=== PATIENT | male | born 1965 | race Caucasian/White ===

== ENCOUNTER 2018-04-22 20:55 | Inpatient (IN) ==
--- NOTE | 2018-04-22 21:43 | Emergency Department Note ---
Disposition Clinical Impression: Depression Qualifiers: Depression Type: major depressive disorder Major depression recurrence: recurrent Active/Remission status: currently active Major depression episode severity: severe Psychotic features: without psychotic features Qualified Code(s ): F33.2 - Major depressive disorder, recurrent severe without psychotic features Disposition: Admitted As Inpatient Condition: Good Time of Disposition: 22:41 General Adult HPI - General Chief complaint: ED Psychiatric Symptoms Stated complaint: SI Time Seen by Provider: 04/22/18 21:14 Source: patient, EMS Limitations: no limitations - History of Present Illness HPI Narrative: This is a 52-year-old male who comes to emergency department reporting depression that has affected him for years, but has been much worse the last 2 months. He states he has been thinking about overdosing on sleeping pills. Pain Scale: 0 - Related Data Home Medications Medication Instructions Recorded Confirmed ALPRAZolam [Xanax 1 MG Tablet] 1 mg PO TID 01/31/16 01/31/16 Citalopram [CeleXA] 40 mg PO DAILY 01/31/16 01/31/16 Montelukast [Singulair] 10 mg PO HS 01/31/16 01/31/16 Nebivolol HCl [Bystolic] 10 mg PO 01/31/16 Omeprazole [PriLOSEC] 20 mg PO DAILY 01/31/16 01/31/16 SUMAtriptan Succinate [Imitrex] 100 mg PO DAILY PRN 01/31/16 01/31/16 Simvastatin [Zocor] 40 mg PO HS 01/31/16 01/31/16 Previous Rx's Medication Instructions Recorded Dicyclomine [Bentyl] 10 mg PO QID #14 capsule 04/14/16 Naproxen [Naprosyn] 500 mg PO BID #10 tablet 04/14/16 HYDROcodone/Acet 5/325 mg [[place] 1 tab PO Q6H PRN #6 tab 08/12/16 5-325 mg] Butalb/Acetaminophen/Caffeine 1 each PO Q6HR PRN #10 capsule 02/28/17 [Fioricet 50-300-40 mg Capsule] Loperamide HCl [Imodium A-D] 2 mg PO ONCE PRN #6 tablet 02/28/17 Allergies Allergy/AdvReac Type Severity Reaction Status Date / Time azithromycin Allergy Hives Verified 01/12/18 11:44 [From Zithromax Z-Efraín] Darvocet Allergy Rash Uncoded 08/02/17 23:13 All systems ED: reviewed and negative except as stated. Psychiatric: Reports: depression, suicidal thoughts Past Medical History - Past Medical History Medical history: Reports: asthma, diabetes, GERD, hyperlipidemia, hypertension, other Surgical history: Reports: non-contributory Psychiatric history: Reports: anxiety, depression - Social History Smoking Status: Former smoker Smokeless Tobacco Status: No Alcohol use: Reports: none Drug use: Reports: none Physical Exam - General Limitations: no limitations General appearance: alert, in no apparent distress - Head Head exam: atraumatic, normocephalic, normal inspection - Eye Eye exam: Present: normal appearance, PERRL, EOMI - Chest Chest inspection: Present: normal inspection, symmetric chest wall rise - Respiratory Respiratory exam: Present: normal lung sounds bilaterally - Cardiovascular Cardiovascular exam: Present: regular rate, normal rhythm, normal heart sounds - Abdominal Exam Abdominal exam: Present: soft, Non-Tender. Absent: tenderness, distention, guarding, rebound, rigidity - Extremities Exam Extremities exam: Present: normal inspection, full ROM. Absent: tenderness, pedal edema - Neurological Exam Neurological exam: Present: alert, oriented X3 - Psychiatric Psychiatric exam: Present: depressed, flat affect, suicidal ideation, other (He displays anhedonia, reports insomnia and frequent awakenings, poor appetite, and loss of interest and otherwise pleasurable activities.) - Skin Skin exam: Present: warm, dry, intact, normal color Course Vital Signs Temperature 98.5 F 04/22/18 21:01 Pulse Rate 48 04/22/18 21:01 Respiratory Rate 18 04/22/18 21:01 Blood Pressure 152/81 04/22/18 21:01 O2 Sat by Pulse Oximetry 96 04/22/18 21:01 Temperature 98.5 F 04/22/18 21:01 Pulse Rate 48 04/22/18 21:01 Respiratory Rate 18 04/22/18 21:01 Blood Pressure 152/81 04/22/18 21:01 O2 Sat by Pulse Oximetry 96 04/22/18 21:01 Oxygen Delivery Oxygen Delivery Room Air Medical Decision Making - MDM Narrative Medical decision making narrative: This is a 52-year-old male with major depression. He was admitted to psychiatry. - Lab Data Lab results reviewed: Yes I reviewed the patient's lab results. Lab results narrative: CBC shows leukocytosis at 14.6 BMP was unremarkable Salicylate was low Acetaminophen was low Alcohol was low Drug screen was negative Result diagrams: 04/22/18 21:13 04/22/18 21:13 Lab Results 04/22/18 04/22/18 04/22/18 Range/Units 21:13 21:13 21:29 WBC 14.6 H (4.3-11.1) K/mcL RBC 5.51 H (4.19-5.50) M/mcL Hgb 16.2 (12.9-16.9) g/dL Hct 49.3 (37.5-50.1) % MCV 89.5 (83.0-100.0) fL MCH 29.4 (28.0-33.3) pg MCHC 32.9 (31.6-35.5) g/dL RDW 11.9 (11.5-14.5) % Plt Count 264 (140-400) K/mcL MPV 11.1 (9.4-12.4) fL Immature Gran % 0.3 (0-4) % Seg Neutrophils % 61.3 % Lymphocytes % 28.9 % Monocytes % 6.8 % Eosinophils % 2.1 % Basophils % 0.6 % Neutrophils # 9.0 H (1.6-8.9) K/mcL Lymphocytes # 4.2 (0.6-4.6) K/mcL Monocytes # 1.0 (0.0-1.3) K/mcL Eosinophils # 0.3 (0.0-0.6) K/mcL Basophils # 0.1 (0.0-0.2) K/mcL Sodium 137 (136-145) mEq/L Potassium 3.5 (3.5-5.1) mEq/L Chloride 105 (98-107) mEq/L Carbon Dioxide 24 (23-29) mEq/L BUN 11 (6-20) mg/dL Creatinine 0.77 (0.70-1.30) mg/dL Est GFR ( Amer) > 60 (> 60) Est GFR (Non-Af Amer) > 60 (> 60) BUN/Creatinine Ratio 14 (6-26) Glucose 118 H (70-105) mg/dL Calculated Osmolality 284 (280-300) Calcium 9.3 (8.6-10.3) mg/dL Urine Color Yellow (Yellow) Urine Clarity Clear (Clear) Urine pH 6.0 (5.0-8.0) pH Units Ur Specific [place] > 1.030 H (1.010-1.025) Urine Protein Negative (Neg-Trace) mg/dL Urine Glucose (UA) >=1000 H (Normal) mg/dL Urine Ketones 15 H (Negative) mg/dL Urine Blood Negative (Negative) Urine Nitrite Negative (Negative) Urine Bilirubin Negative (Negative) Urine Urobilinogen Normal (Normal) mg/dL Ur Leukocyte Esterase Negative (Negative) Salicylates < 2.5 L (15.0-30.0) mg/dL Urine Opiates Screen (Bqatqt=261) ng/mL Acetaminophen < 10 L (10-20) mcg/mL Ur Barbiturates Screen (Bannna=009) ng/mL Ur Phencyclidine Scrn (Cutoff=25) ng/mL Ur Amphetamines Screen (Mtvvkr=7425) ng/mL U Benzodiazepines Scrn (Qruahq=670) ng/mL Urine Cocaine Screen (Cutoff= 300) ng/mL U Marijuana (THC) Screen (Cutoff = 50) ng/mL Ur Drug Screen Interp Ethyl Alcohol < 10 (Less than 10) mg/dL 04/22/18 Range/Units 21:29 WBC (4.3-11.1) K/mcL RBC (4.19-5.50) M/mcL Hgb (12.9-16.9) g/dL Hct (37.5-50.1) % MCV (83.0-100.0) fL MCH (28.0-33.3) pg MCHC (31.6-35.5) g/dL RDW (11.5-14.5) % Plt Count (140-400) K/mcL MPV (9.4-12.4) fL Immature Gran % (0-4) % Seg Neutrophils % % Lymphocytes % % Monocytes % % Eosinophils % % Basophils % % Neutrophils # (1.6-8.9) K/mcL Lymphocytes # (0.6-4.6) K/mcL Monocytes # (0.0-1.3) K/mcL Eosinophils # (0.0-0.6) K/mcL Basophils # (0.0-0.2) K/mcL Sodium (136-145) mEq/L Potassium (3.5-5.1) mEq/L Chloride (98-107) mEq/L Carbon Dioxide (23-29) mEq/L BUN (6-20) mg/dL Creatinine (0.70-1.30) mg/dL Est GFR ( Amer) (> 60) Est GFR (Non-Af Amer) (> 60) BUN/Creatinine Ratio (6-26) Glucose (70-105) mg/dL Calculated Osmolality (280-300) Calcium (8.6-10.3) mg/dL Urine Color (Yellow) Urine Clarity (Clear) Urine pH (5.0-8.0) pH Units Ur Specific [place] (1.010-1.025) Urine Protein (Neg-Trace) mg/dL Urine Glucose (UA) (Normal) mg/dL Urine Ketones (Negative) mg/dL Urine Blood (Negative) Urine Nitrite (Negative) Urine Bilirubin (Negative) Urine Urobilinogen (Normal) mg/dL Ur Leukocyte Esterase (Negative) Salicylates (15.0-30.0) mg/dL Urine Opiates Screen Negative (Vbfvbm=613) ng/mL Acetaminophen (10-20) mcg/mL Ur Barbiturates Screen Negative (Ojyten=254) ng/mL Ur Phencyclidine Scrn Negative (Cutoff=25) ng/mL Ur Amphetamines Screen Negative (Thezbl=7184) ng/mL U Benzodiazepines Scrn Negative (Vqarag=479) ng/mL Urine Cocaine Screen Negative (Cutoff= 300) ng/mL U Marijuana (THC) Screen Negative (Cutoff = 50) ng/mL Ur Drug Screen Interp See Below Ethyl Alcohol (Less than 10) mg/dL Critical Care Time Critical Care Time: No
[2018-04-22 21:54] LABS: Bilirubin,Urine Negative (Negative); Blood,Urine Negative (Negative); Clarity,Urine Clear (Clear); Color,Urine Yellow (Yellow); Glucose,Urine (UA) >=1000 mg/dL (Normal); Ketones,Urine 15 mg/dL (Negative); Leukocyte Esterase,Urine Negative (Negative); Nitrite,Urine Negative (Negative); Protein,Urine Negative (Neg-Trace); Specific Gravity,Urine > 1.030 (1.010-1.025); Urobilinogen,Urine Normal (Normal)
[2018-04-22 21:55] LABS: Basophils # 0.1 K/mcL (0.0-0.2); Basophils % 0.6 %; Eosinophils # 0.3 K/mcL (0.0-0.6); Eosinophils % 2.1 %; Hematocrit 49.3 % (37.5-50.1); Hemoglobin 16.2 g/dL (12.9-16.9); Immature Granulocytes % 0.3 % (0-4); Lymphocytes # 4.2 K/mcL (0.6-4.6); Lymphocytes % 28.9 %; Mean Corpuscular HGB Conc 32.9 g/dL (31.6-35.5); Mean Corpuscular Hemoglobin 29.4 pg (28.0-33.3); Mean Corpuscular Volume 89.5 fL (83.0-100.0); Mean Platelet Volume 11.1 fL (9.4-12.4); Monocytes % 6.8 %; Platelet Count 264 K/mcL (140-400); Red Blood Count 5.51 M/mcL (4.19-5.50); Red Cell Distribution Width 11.9 % (11.5-14.5); Segmented Neutrophils % 61.3 %
[2018-04-22 22:04] LABS: Acetaminophen < 10 mcg/mL (10-20); BUN/Creatinine Ratio 14 (6-26); Blood Urea Nitrogen 11 mg/dL (6-20); Calcium 9.3 mg/dL (8.6-10.3); Carbon Dioxide 24 mEq/L (23-29); Chloride 105 mEq/L (98-107); Ethanol < 10 mg/dL (Less than 10); Glucose 118 mg/dL (70-105); Osmolality,Calculated 284 (280-300); Potassium 3.5 mEq/L (3.5-5.1); Salicylate < 2.5 mg/dL (15.0-30.0); Sodium 137 mEq/L (136-145); eGFR For Non-African Americans > 60 (> 60)
[2018-04-22 22:05] LABS: Amphetamine Screen,Urine Negative ng/mL (Cutoff=1000); Barbiturate Screen,Urine Negative ng/mL (Cutoff=200); Benzodiazepines Screen,Urine Negative ng/mL (Cutoff=200); Cannabinoid Screen,Urine Negative ng/mL (Cutoff = 50); Cocaine Screen,Urine Negative ng/mL (Cutoff= 300); Opiate Screen,Urine Negative ng/mL (Cutoff=300); Phencyclidine Screen,Urine Negative ng/mL (Cutoff=25)
[2018-04-23] MEDS ORDERED: MOM Conc 10 ML UD.LIQ PO PRN (00:20)
[2018-04-23] MEDS ORDERED: Haloperidol Lactate 5 MG/ML VIAL IM PRN (00:20)
[2018-04-23] MEDS ORDERED: *HR* LORazepam 2 MG/ML VIAL IM PRN (00:20)
[2018-04-23] MEDS ORDERED: Mag Hydrox/Al Hydrox/Simeth 30 ML UDC PO PRN (00:20)
[2018-04-23] MEDS ORDERED: *HR* LORazepam 1 MG TABLET PO PRN (00:20)
[2018-04-23] MEDS: (Canagliflozin [Invokana] 300 MG) PO SCH ×2 (02:02→20:42)
[2018-04-23] MEDS: *HR* Metformin 500 MG TABLET PO SCH ×2 (08:15→16:30)
[2018-04-23] MEDS: Ibuprofen 400 MG TABLET PO PRN (08:17)
[2018-04-23] MEDS: Budesonide/Formoterol 160/4.5 1 PUFF INH IH SCH (10:15)
--- NOTE | 2018-04-23 11:35 | Psychiatry History & Physical ---
Date of Encounter: 04/23/18 Time of Encounter: 11:00 History of Present Illness Patient Stated Chief Complaint: Suicidal ideation Medicare Admission Attestation: For traditional Medicare patients the provided hospital inpatient services are reasonable and necessary and in the case of services not specified as inpatient -only under 42 CFR 419.22 (n), that they are appropriately provided as inpatient services in accordance 42 CFR 412.3. For Critical Access Hospital the patient may reasonably be expected to be discharged or transferred to a hospital within 96 hours after admission to the Critical Access Hospital. Admitted From: Emergency Dept History of Present Illness: Mr. Stevens is a 52 year old male admitted from the emergency department for depression and suicidal ideation. Patient went to see his counselor at [facility] suicidal thoughts and was referred to emergency department for medical clearance and admission. Patient has a long history of depression and anxiety also has a history of PTSD. He was hospitalized in 2010 after suicide attempt. He did not follow up or take medications after. Recently he was prescribed Zoloft by his PCP. He reports irregular sleep depressive feelings and lately suicidal ideation. 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 He has a medical history significant for diabetes and hypertension and his taken his medication and monitors his blood sugar. Patient did not elaborate on any triggers or precipitating factors that led to his visit to the hospital. UDS was negative. Past Med Surg Social Fam HX - Past Medical History Medical history: asthma, diabetes, GERD, hyperlipidemia, hypertension, other - Past Psychiatric History Psychiatric history: Reports: anxiety, depression, PTSD, prior suicide attempt, previous psychiatric hospitalization Past psychiatric history details: Hospitalization 2010 for suicide attempt - Past Surgical History Surgical History: non-contributory - Social History Smoking Status: Former smoker Smokeless Tobacco Status: No Alcohol use: none Drug use: none Medications & Allergies Albuterol Sulfate [Ventolin Hfa] 2 puff IH QID PRN 04/23/18 [History] Budesonide/Formoterol 160/4.5 [Symbicort 160/4.5] 2 puff IH DAILY 04/23/18 [ History] Canagliflozin [Invokana] 300 mg PO HS 04/23/18 [History] Lisinopril [Zestril] 10 mg PO DAILY 04/23/18 [History] Omeprazole [PriLOSEC] 40 mg PO DAILY 04/23/18 [History] Propranolol HCl 40 mg PO BID 04/23/18 [History] Sertraline [Zoloft] 50 mg PO HS 04/23/18 [History] Simvastatin 40 mg PO DAILY 04/23/18 [History] metFORMIN [Glucophage] 500 mg PO BIDWM 04/23/18 [History] 3 Allergy/AdvReac Type Severity Reaction Status Date / Time azithromycin Allergy Hives Verified 01/12/18 11:44 [From Zithromax Z-Efraín] Darvocet Allergy Rash Uncoded 08/02/17 23:13 Review of Systems Psychiatric: Reports: depression, anxiety, suicidal ideation Exam - HEENT Head exam IM: Present: atraumatic Eye exam IM: Present: EOMI, normal appearance, PERRL ENT exam IM: Present: normal exam - Neurological Neurological exam: Present: CN II-XII intact - Respiratory Respiratory exam IM: Present: CTAB - GI/Abdominal GI/Abdominal exam IM: Present: normal bowel sounds, soft. Absent: tenderness - Extremities Extremities exam IM: Present: full ROM - Skin Skin exam IM: Present: dry, warm - Constitutional Vitals: Temp Pulse Resp BP Pulse Ox 97.4 F L 61 16 112/72 96 04/23/18 09:00 04/23/18 09:00 04/23/18 09:00 04/23/18 09:00 04/22/18 21:01 General appearance: age & developmentally appropriate, well-groomed, well- nourished, average - Musculoskeletal Gait: normal Station: relaxed Strength & Tone: normal for patient - Psychiatric Patient Orientation: Yes Person, Yes Time, Yes Place Level of alertness: Alert Behavior: calm, cooperative Psychomotor activity: Normal Eye Contact: Maintains Eye Contact Mood Description: Euthymic/stable, Depressed, Anxious Affect description: congruent with mood, constricted Speech Volume: Normal Speech pattern: normal rate, normal rhythm, normal tone, fluent, spontaneous Language & Vocabulary: consistent with education Thought Process: Linear, Goal Oriented Thought Content: Yes Suicidal ideation, No Homicidal ideation, No Overt delusions Perceptual Disturbances: Yes Auditory hallucinations, No Visual hallucinations Attention Span Ability: Capable of Focused Attention Memory Description: Grossly Intact Patient Reliability: Reliable Historian Fund of knowledge: Yes abstraction ability, Yes average, Yes aware of current events Intelligence Estimate: Average Judgment: Limited Insight: Partial Results - Labs Labs: Laboratory Last Values WBC 14.6 K/mcL (4.3-11.1) H 04/22/18 21:13 RBC 5.51 M/mcL (4.19-5.50) H 04/22/18 21:13 Hgb 16.2 g/dL (12.9-16.9) 04/22/18 21:13 Hct 49.3 % (37.5-50.1) 04/22/18 21:13 MCV 89.5 fL (83.0-100.0) 04/22/18 21:13 MCH 29.4 pg (28.0-33.3) 04/22/18 21:13 MCHC 32.9 g/dL (31.6-35.5) 04/22/18 21:13 RDW 11.9 % (11.5-14.5) 04/22/18 21:13 Plt Count 264 K/mcL (140-400) 04/22/18 21:13 MPV 11.1 fL (9.4-12.4) 04/22/18 21:13 Immature Gran % 0.3 % (0-4) 04/22/18 21:13 Seg Neutrophils % 61.3 % 04/22/18 21:13 Lymphocytes % 28.9 % 04/22/18 21:13 Monocytes % 6.8 % 04/22/18 21:13 Eosinophils % 2.1 % 04/22/18 21:13 Basophils % 0.6 % 04/22/18 21:13 Neutrophils # 9.0 K/mcL (1.6-8.9) H 04/22/18 21:13 Lymphocytes # 4.2 K/mcL (0.6-4.6) 04/22/18 21:13 Monocytes # 1.0 K/mcL (0.0-1.3) 04/22/18 21:13 Eosinophils # 0.3 K/mcL (0.0-0.6) 04/22/18 21:13 Basophils # 0.1 K/mcL (0.0-0.2) 04/22/18 21:13 Sodium 137 mEq/L (136-145) 04/22/18 21:13 Potassium 3.5 mEq/L (3.5-5.1) 04/22/18 21:13 Chloride 105 mEq/L (98-107) 04/22/18 21:13 Carbon Dioxide 24 mEq/L (23-29) 04/22/18 21:13 BUN 11 mg/dL (6-20) 04/22/18 21:13 Creatinine 0.77 mg/dL (0.70-1.30) 04/22/18 21:13 Est GFR ( Amer) > 60 (> 60) 04/22/18 21:13 Est GFR (Non-Af Amer) > 60 (> 60) 04/22/18 21:13 BUN/Creatinine Ratio 14 (6-26) 04/22/18 21:13 Glucose 118 mg/dL (70-105) H 04/22/18 21:13 POC Glucose 105 mg/dL (70-99) H 04/23/18 08:07 Calculated Osmolality 284 (280-300) 04/22/18 21:13 Calcium 9.3 mg/dL (8.6-10.3) 04/22/18 21:13 Urine Color Yellow (Yellow) 04/22/18 21:29 Urine Clarity Clear (Clear) 04/22/18 21:29 Urine pH 6.0 pH Units (5.0-8.0) 04/22/18 21:29 Ur Specific [place] > 1.030 (1.010-1.025) H 04/22/18 21:29 Urine Protein Negative mg/dL (Neg-Trace) 04/22/18 21:29 Urine Glucose (UA) >=1000 mg/dL (Normal) H 04/22/18 21:29 Urine Ketones 15 mg/dL (Negative) H 04/22/18 21:29 Urine Blood Negative (Negative) 04/22/18 21:29 Urine Nitrite Negative (Negative) 04/22/18 21:29 Urine Bilirubin Negative (Negative) 04/22/18 21:29 Urine Urobilinogen Normal mg/dL (Normal) 04/22/18 21:29 Ur Leukocyte Esterase Negative (Negative) 04/22/18 21:29 Salicylates < 2.5 mg/dL (15.0-30.0) L 04/22/18 21:13 Urine Opiates Screen Negative ng/mL (Nqsrno=423) 04/22/18 21:29 Acetaminophen < 10 mcg/mL (10-20) L 04/22/18 21:13 Ur Barbiturates Screen Negative ng/mL (Applwg=347) 04/22/18 21:29 Ur Phencyclidine Scrn Negative ng/mL (Cutoff=25) 04/22/18 21:29 Ur Amphetamines Screen Negative ng/mL (Vbxqzn=6035) 04/22/18 21:29 U Benzodiazepines Scrn Negative ng/mL (Kxwxze=719) 04/22/18 21:29 Urine Cocaine Screen Negative ng/mL (Cutoff= 300) 04/22/18 21:29 U Marijuana (THC) Screen Negative ng/mL (Cutoff = 50) 04/22/18 21:29 Ur Drug Screen Interp See Below 04/22/18 21:29 Ethyl Alcohol < 10 mg/dL (Less than 10) 04/22/18 21:13 Assessment and Plan (1) Severe recurrent major depression without psychotic features Current visit: Yes Status: Acute Plan: Admit inpatient for safety and stabilization, Close observation, Suicide Precautions per unit protocol, Encourage participation in unit milieu, Group Therapy, Monitor sleep, Monitor appetite Risks, benefits, side effects, alternatives discussed w/pt: Yes Patient agreeable to treatment: Yes Estimated Length of Stay (Days): 5
[2018-04-23] MEDS: Nicotine 2 MG GUM BC PRN ×2 (14:26→17:10)
[2018-04-23] MEDS: hydrOXYzine pamoate 25 MG CAPSULE PO PRN (20:43)
[2018-04-23] MEDS: traZODone 50 MG TABLET PO PRN (20:43)
[2018-04-24] MEDS: *HR* Metformin 500 MG TABLET PO SCH ×2 (08:35→16:56)
[2018-04-24] MEDS: Budesonide/Formoterol 160/4.5 1 PUFF INH IH SCH (08:36)
[2018-04-24] MEDS: Nicotine 2 MG GUM BC PRN ×4 (08:37→21:17)
[2018-04-24] MEDS: Ibuprofen 400 MG TABLET PO PRN (09:30)
--- NOTE | 2018-04-24 13:59 | Psychiatry Progress Note ---
Date of Encounter: 04/24/18 Time of Encounter: 13:30 Subjective Interval history: Patient seen for follow-up. Case discussed with treatment team. Staff report patient is anxious, complain of racing thoughts, hearing voices, continued to feel suicidal and hopeless. He shared with me that he has been stressed out by family issues and he never received any therapy or counseling. He has low self- esteem, believe he is a failure and feels hopeless. Review of Systems Psychiatric: Reports: depression, anxiety, suicidal ideation, hopelessness, irritability, mood swings Results - Vital Signs Vital Signs: Temp Pulse Resp BP Pulse Ox 97.1 F L 61 18 103/71 96 04/24/18 09:00 04/24/18 09:00 04/24/18 09:00 04/24/18 09:00 04/22/18 21:01 - Labs Labs: Laboratory Results - last 24 hr 04/23/18 04/24/18 16:24 08:12 POC Glucose 139 H 119 H Assessment and Plan (1) Severe recurrent major depression without psychotic features Current visit: Yes Status: Acute Plan: Continue hospitalization, Close observation, Suicide Precautions per unit protocol, Encourage participation in unit milieu, Group Therapy, Monitor sleep, Monitor appetite Additional Plan: 1. Increase Zoloft to 100 mg daily 2. Abilify 10 mg daily Benefits and side effects were discussed was a patient is agreeable to start medication and will monitor. Risks, benefits, side effects, alternatives discussed w/pt: Yes Patient agreeable to treatment: Yes Consult Discharge Plan - Plan Referrals: NONE,PCP [Primary Care Provider] - Psychiatry Exam - Constitutional Vitals: Temp Pulse Resp BP Pulse Ox 97.1 F L 61 18 103/71 96 04/24/18 09:00 04/24/18 09:00 04/24/18 09:00 04/24/18 09:00 04/22/18 21:01 General appearance: age & developmentally appropriate, well-groomed, well- nourished, average - Musculoskeletal Gait: normal Station: relaxed Strength & Tone: normal for patient - Psychiatric Patient Orientation: Yes Person, Yes Time, Yes Place Level of alertness: Alert Behavior: calm, cooperative, anxious, distractible, dramatic Psychomotor activity: Normal Eye Contact: Maintains Eye Contact Mood Description: Euthymic/stable, Depressed, Irritable Affect description: congruent with mood, labile, dysphoric Speech Volume: Normal Speech pattern: normal rate, normal rhythm, normal tone, fluent, spontaneous Language & Vocabulary: consistent with education Thought Process: Linear, Goal Oriented, Racing Thought Content: Yes Suicidal ideation, No Homicidal ideation, No Overt delusions Perceptual Disturbances: Yes Auditory hallucinations, No Visual hallucinations Attention Span Ability: Capable of Focused Attention Memory Description: Grossly Intact Patient Reliability: Not Reliable Historian Fund of knowledge: Yes abstraction ability, Yes aware of current events Intelligence Estimate: Average Judgment: Limited Insight: Partial
[2018-04-24] MEDS: ARIPiprazole 10 MG TABLET PO SCH (15:23)
[2018-04-24] MEDS: traZODone 50 MG TABLET PO PRN (21:19)
[2018-04-24] MEDS: (Canagliflozin [Invokana] 300 MG) PO SCH (21:33)
[2018-04-25] MEDS: hydrOXYzine pamoate 25 MG CAPSULE PO PRN ×2 (01:45→20:24)
[2018-04-25] MEDS: *HR* Metformin 500 MG TABLET PO SCH ×2 (08:40→16:27)
[2018-04-25] MEDS: ARIPiprazole 10 MG TABLET PO SCH (08:40)
[2018-04-25] MEDS: Nicotine 2 MG GUM BC PRN ×4 (08:42→21:47)
[2018-04-25] MEDS: Budesonide/Formoterol 160/4.5 1 PUFF INH IH SCH (10:39)
[2018-04-25] MEDS: Ibuprofen 400 MG TABLET PO PRN (12:50)
--- NOTE | 2018-04-25 15:56 | Psychiatry Progress Note ---
Date of Encounter: 04/25/18 Time of Encounter: 14:20 Subjective Interval history: Patient seen for follow-up. Case discussed with treatment team. Patient reports feeling better less depressed, more expressive, more hopeful. Denies suicidal ideation or hopelessness. She is more interactive with staff and peers. Tolerated medication changes. Complain of some insomnia that responded to medication. Review of Systems Psychiatric: Reports: depression, anxiety, suicidal ideation, hopelessness, irritability, mood swings Results - Vital Signs Vital Signs: Temp Pulse Resp BP Pulse Ox 97.6 F 63 16 120/76 96 04/25/18 09:00 04/25/18 09:00 04/25/18 09:00 04/25/18 09:00 04/22/18 21:01 - Labs Labs: Laboratory Results - last 24 hr 04/24/18 04/25/18 16:55 08:02 POC Glucose 131 H 107 H Assessment and Plan (1) Severe recurrent major depression without psychotic features Current visit: Yes Status: Acute Plan: Continue hospitalization, Close observation, Suicide Precautions per unit protocol, Encourage participation in unit milieu, Group Therapy, Monitor sleep, Monitor appetite Risks, benefits, side effects, alternatives discussed w/pt: Yes Patient agreeable to treatment: Yes Consult Discharge Plan - Plan Referrals: Tig[facility] Sotelo [facility] [Outside] - 04/30/18 11:00 am (The above appointment is with Sammy Olmos for outpatient mental health counseling services. You will see him again on 05/06/2018 at 1:00pm. You will see Dr. Whitehead, psychiatrist, on 06/10/2018 at 10:00am.) Psychiatry Exam - Constitutional Vitals: Temp Pulse Resp BP Pulse Ox 97.6 F 63 16 120/76 96 04/25/18 09:00 04/25/18 09:00 04/25/18 09:00 04/25/18 09:00 04/22/18 21:01 General appearance: age & developmentally appropriate, well-groomed, well- nourished, average - Musculoskeletal Gait: normal Station: relaxed Strength & Tone: normal for patient - Psychiatric Patient Orientation: Yes Person, Yes Time, Yes Place Level of alertness: Alert Behavior: calm, cooperative Psychomotor activity: Normal Eye Contact: Maintains Eye Contact Mood Description: Euthymic/stable Affect description: congruent with mood, full range Speech Volume: Normal Speech pattern: normal rate, normal rhythm, normal tone, fluent, spontaneous Language & Vocabulary: consistent with education Thought Process: Linear, Goal Oriented Thought Content: No Suicidal ideation, No Homicidal ideation, No Overt delusions Perceptual Disturbances: No Auditory hallucinations, No Visual hallucinations Attention Span Ability: Capable of Focused Attention Memory Description: Grossly Intact Patient Reliability: Reliable Historian Fund of knowledge: Yes abstraction ability, Yes aware of current events Intelligence Estimate: Average Judgment: Limited Insight: Partial
[2018-04-25] MEDS: (Canagliflozin [Invokana] 300 MG) PO SCH (20:24)
[2018-04-25] MEDS: traZODone 50 MG TABLET PO PRN (20:24)
[2018-04-26] MEDS: Nicotine 2 MG GUM BC PRN ×5 (05:45→20:14)
[2018-04-26] MEDS: *HR* Metformin 500 MG TABLET PO SCH ×2 (08:56→17:19)
[2018-04-26] MEDS: ARIPiprazole 10 MG TABLET PO SCH (08:56)
[2018-04-26] MEDS: Budesonide/Formoterol 160/4.5 1 PUFF INH IH SCH (08:57)
--- NOTE | 2018-04-26 13:57 | Psychiatry Progress Note ---
Date of Encounter: 04/26/18 Time of Encounter: 13:54 Subjective Interval history: Patient seen for follow-up. Case discussed with treatment team. Patient reports feeling better more optimistic, he participated in groups and writing notes in his book. He is more interactive and denied hopelessness and denies suicidal ideation. He complained of insomnia and medication would be adjusted. Review of Systems Psychiatric: Reports: depression, anxiety, suicidal ideation, hopelessness, irritability, mood swings Results - Vital Signs Vital Signs: Temp Pulse Resp BP Pulse Ox 97.4 F L 61 16 107/59 96 04/26/18 08:41 04/26/18 08:41 04/26/18 08:41 04/26/18 08:41 04/22/18 21:01 - Labs Labs: Laboratory Results - last 24 hr 04/25/18 04/26/18 16:26 07:42 POC Glucose 166 H 105 H Assessment and Plan (1) Severe recurrent major depression without psychotic features Current visit: Yes Status: Acute Plan: Continue hospitalization, Close observation, Suicide Precautions per unit protocol, Encourage participation in unit milieu, Group Therapy, Monitor sleep, Monitor appetite Additional Plan: Increase trazodone to 100 mg at at bedtime Risks, benefits, side effects, alternatives discussed w/pt: Yes Patient agreeable to treatment: Yes Consult Discharge Plan - Plan Referrals: Tigist Wasserman [facility] [Outside] - 04/30/18 11:00 am (The above appointment is with Sammy Olmos for outpatient mental health counseling services. You will see him again on 05/06/2018 at 1:00pm. You will see Dr. Whitehead, psychiatrist, on 06/10/2018 at 10:00am.) Psychiatry Exam - Constitutional Vitals: Temp Pulse Resp BP Pulse Ox 97.4 F L 61 16 107/59 96 04/26/18 08:41 04/26/18 08:41 04/26/18 08:41 04/26/18 08:41 04/22/18 21:01 General appearance: age & developmentally appropriate, well-groomed, well- nourished, average - Musculoskeletal Gait: normal Station: relaxed Strength & Tone: normal for patient - Psychiatric Patient Orientation: Yes Person, Yes Time, Yes Place Level of alertness: Alert Behavior: calm, cooperative, distractible Psychomotor activity: Normal Eye Contact: Maintains Eye Contact Mood Description: Euthymic/stable, Anxious Affect description: congruent with mood, full range Speech Volume: Normal Speech pattern: normal rate, normal rhythm, normal tone, fluent, spontaneous Language & Vocabulary: consistent with education Thought Process: Linear, Goal Oriented Thought Content: No Suicidal ideation, No Homicidal ideation, No Overt delusions Perceptual Disturbances: No Auditory hallucinations, No Visual hallucinations Attention Span Ability: Capable of Focused Attention Memory Description: Grossly Intact Patient Reliability: Reliable Historian Fund of knowledge: Yes abstraction ability, Yes aware of current events Intelligence Estimate: Average Judgment: Limited Insight: Partial
[2018-04-26] MEDS: Ibuprofen 400 MG TABLET PO PRN (14:34)
[2018-04-26] MEDS: traZODone 50 MG TABLET PO PRN (20:11)
[2018-04-26] MEDS: hydrOXYzine pamoate 25 MG CAPSULE PO PRN (20:11)
[2018-04-26] MEDS: (Canagliflozin [Invokana] 300 MG) PO SCH (20:12)
--- NOTE | 2018-04-27 08:02 | Psychiatry Progress Note ---
Date of Encounter: 04/27/18 Time of Encounter: 07:58 Subjective Interval history: Client reports he is starting to feel better. Zoloft dose doubled so will not make any additional changes today. Claims he would have killed himself if his had not made him turn around at counseling office. Had been very negative toward but saying positive things about her today. Seems antisocial but also depressed. Claims he is working on coping skills and talking more. Uncomfortable in groups but trying to open up to staff. 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 Review of Systems Constitutional: Denies: fever, chills, weakness, weight change Eyes: Denies: eye pain, vision change Ears, Nose, Throat: Denies: ear pain, throat pain, dental pain, hearing loss, congestion Cardiovascular: Denies: chest pain, palpitations, dyspnea on exertion Respiratory: Denies: cough, dyspnea, wheezes Gastrointestinal: Denies: abdominal pain, nausea, vomiting, diarrhea, constipation Musculoskeletal: Denies: joint swelling, joint pain Neurological: Denies: headache, weakness, numbness, memory loss Psychiatric: Reports: depression, anxiety, suicidal ideation, hopelessness, irritability, mood swings Results - Vital Signs Vital Signs: Temp Pulse Resp BP Pulse Ox 98.6 F 69 16 94/64 96 04/26/18 21:00 04/26/18 21:00 04/26/18 21:00 04/26/18 21:00 04/22/18 21:01 - Labs Labs: Laboratory Results - last 24 hr 04/26/18 16:51 POC Glucose 167 H Assessment and Plan (1) Severe recurrent major depression without psychotic features Current visit: Yes Status: Acute Plan: Continue hospitalization, Close observation, Suicide Precautions per unit protocol, Encourage participation in unit milieu, Group Therapy, Monitor sleep, Monitor appetite Risks, benefits, side effects, alternatives discussed w/pt: Yes Patient agreeable to treatment: Yes Consult Discharge Plan - Plan Referrals: [facility] Wasserman [facility] [Outside] - 04/30/18 11:00 am (The above appointment is with Sammy Olmos for outpatient mental health counseling services. You will see him again on 05/06/2018 at 1:00pm. You will see Dr. Whitehead, psychiatrist, on 06/10/2018 at 10:00am.) Manisha Oneill MD [Partnered Physician] - 05/13/18 9:20 am (The above appointment is with Manisha Oneill for primary healthcare and medication management services.) Psychiatry Exam - Constitutional Vitals: Temp Pulse Resp BP Pulse Ox 98.6 F 69 16 94/64 96 04/26/18 21:00 04/26/18 21:00 04/26/18 21:00 04/26/18 21:00 04/22/18 21:01 General appearance: age & developmentally appropriate - Musculoskeletal Gait: normal Station: relaxed Strength & Tone: normal for patient - Psychiatric Patient Orientation: Yes Person, Yes Time, Yes Place Level of alertness: Alert Behavior: calm, cooperative Psychomotor activity: Normal Eye Contact: Maintains Eye Contact Mood Description: Depressed Affect description: congruent with mood, full range Speech Volume: Normal Speech pattern: normal rate, normal rhythm, normal tone, fluent, spontaneous Language & Vocabulary: consistent with education Thought Process: Linear Thought Content: Yes Suicidal ideation, No Homicidal ideation, No Overt delusions Perceptual Disturbances: No Auditory hallucinations, No Visual hallucinations Attention Span Ability: Capable of Focused Attention Memory Description: Grossly Intact Patient Reliability: Reliable Historian Fund of knowledge: Yes abstraction ability, Yes aware of current events Intelligence Estimate: Average Judgment: Limited Insight: Partial
[2018-04-27] MEDS: Nicotine 2 MG GUM BC PRN ×3 (08:32→19:59)
[2018-04-27] MEDS: *HR* Metformin 500 MG TABLET PO SCH ×2 (08:33→16:31)
[2018-04-27] MEDS: ARIPiprazole 10 MG TABLET PO SCH (08:33)
[2018-04-27] MEDS: Budesonide/Formoterol 160/4.5 1 PUFF INH IH SCH (11:07)
[2018-04-27] MEDS: traZODone 50 MG TABLET PO PRN (19:56)
[2018-04-27] MEDS: (Canagliflozin [Invokana] 300 MG) PO SCH (19:59)
[2018-04-27] MEDS: hydrOXYzine pamoate 25 MG CAPSULE PO PRN (23:55)
[2018-04-28] MEDS: Ibuprofen 400 MG TABLET PO PRN (03:11)
--- NOTE | 2018-04-28 09:54 | Psychiatry Progress Note ---
Date of Encounter: 04/28/18 Time of Encounter: 09:49 Subjective Interval history: Client reports he had a rough night last night. Could not sleep. Endorsed hallucinations. However, after processing sounds with nurse he realized he was just hearing normal noises from the parking lot. Took multiple prns but reports no sleep until almost 5am. Thinks Seroquel is what ultimately helped him to sleep. Will discontinue Trazodone for tonight and schedule Seroquel instead. Had a good day yesterday. Family visited last night and brought him food. Staff wondered if perhaps visitors brought something else in that impacted sleep but client adamantly denies this. Reports he is in the hospital to get better. "My would kill me." Asking for a family meeting. States his memory is bad and that knows many things about him that should probably be shared but that he forgets to bring up. Review of Systems Constitutional: Denies: fever, chills, weakness, weight change Eyes: Denies: eye pain, vision change Ears, Nose, Throat: Denies: ear pain, throat pain, dental pain, hearing loss, congestion Cardiovascular: Denies: chest pain, palpitations, dyspnea on exertion Respiratory: Denies: cough, dyspnea, wheezes Gastrointestinal: Denies: abdominal pain, nausea, vomiting, diarrhea, constipation Musculoskeletal: Denies: joint swelling, joint pain Neurological: Denies: headache, weakness, numbness, memory loss Psychiatric: Reports: depression, anxiety, suicidal ideation, hopelessness, irritability, mood swings Results - Vital Signs Vital Signs: Temp Pulse Resp BP Pulse Ox 97.3 F L 70 18 89/54 96 04/27/18 20:08 04/27/18 20:08 04/27/18 20:08 04/28/18 05:13 04/22/18 21:01 - Labs Labs: Laboratory Results - last 24 hr 04/27/18 16:32 POC Glucose 106 H Assessment and Plan (1) Severe recurrent major depression without psychotic features Current visit: Yes Status: Acute Plan: Continue hospitalization, Close observation, Suicide Precautions per unit protocol, Encourage participation in unit milieu, Group Therapy, Monitor sleep, Monitor appetite Risks, benefits, side effects, alternatives discussed w/pt: Yes Patient agreeable to treatment: Yes Consult Discharge Plan - Plan Referrals: [facility] [Outside] - 04/30/18 11:00 am (The above appointment is with Sammy Olmos for outpatient mental health counseling services. You will see him again on 05/06/2018 at 1:00pm. You will see Dr. Whitehead, psychiatrist, on 06/10/2018 at 10:00am.) Manisha Oneill MD [Partnered Physician] - 05/13/18 9:20 am (The above appointment is with Manisha Oneill for primary healthcare and medication management services.) Psychiatry Exam - Constitutional Vitals: Temp Pulse Resp BP Pulse Ox 97.3 F L 70 18 89/54 96 04/27/18 20:08 04/27/18 20:08 04/27/18 20:08 04/28/18 05:13 04/22/18 21:01 General appearance: age & developmentally appropriate - Musculoskeletal Gait: normal Station: relaxed Strength & Tone: normal for patient - Psychiatric Patient Orientation: Yes Person, Yes Time, Yes Place Level of alertness: Alert Behavior: calm, cooperative Psychomotor activity: Normal Eye Contact: Maintains Eye Contact Mood Description: Depressed Affect description: congruent with mood Speech Volume: Normal Speech pattern: normal rate, normal rhythm, normal tone, fluent, spontaneous Language & Vocabulary: consistent with education Thought Process: Linear Thought Content: No Suicidal ideation, No Homicidal ideation, No Overt delusions Perceptual Disturbances: No Auditory hallucinations, No Visual hallucinations Attention Span Ability: Capable of Focused Attention Memory Description: Grossly Intact Patient Reliability: Reliable Historian Fund of knowledge: Yes abstraction ability, Yes aware of current events Intelligence Estimate: Average Judgment: Fair Insight: Partial
[2018-04-28] MEDS: ARIPiprazole 10 MG TABLET PO SCH (10:19)
[2018-04-28] MEDS: *HR* Metformin 500 MG TABLET PO SCH ×2 (10:20→16:43)
[2018-04-28] MEDS: Budesonide/Formoterol 160/4.5 1 PUFF INH IH SCH (11:38)
[2018-04-28] MEDS: Nicotine 2 MG GUM BC PRN ×3 (14:04→20:04)
[2018-04-29] MEDS: (Canagliflozin [Invokana] 300 MG) PO SCH ×2 (00:07→20:33)
[2018-04-29] MEDS: Nicotine 2 MG GUM BC PRN ×5 (07:23→23:25)
[2018-04-29] MEDS: ARIPiprazole 10 MG TABLET PO SCH (08:34)
[2018-04-29] MEDS: *HR* Metformin 500 MG TABLET PO SCH ×2 (08:34→18:08)
[2018-04-29] MEDS: Budesonide/Formoterol 160/4.5 1 PUFF INH IH SCH (08:38)
[2018-04-29] MEDS: hydrOXYzine pamoate 25 MG CAPSULE PO PRN ×2 (10:44→20:29)
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
[2018-04-29] MEDS: Ibuprofen 400 MG TABLET PO PRN (19:08)
[2018-04-29] MEDS: Divalproex (12 HR) 250 MG TABLET PO SCH (20:29)
[2018-04-30] MEDS: Nicotine 2 MG GUM BC PRN ×4 (07:57→18:09)
[2018-04-30] MEDS: *HR* Metformin 500 MG TABLET PO SCH ×2 (08:45→16:35)
[2018-04-30] MEDS: ARIPiprazole 10 MG TABLET PO SCH (08:45)
[2018-04-30] MEDS: Budesonide/Formoterol 160/4.5 1 PUFF INH IH SCH (08:45)
[2018-04-30] MEDS: Divalproex (12 HR) 250 MG TABLET PO SCH (08:46)
--- NOTE | 2018-04-30 13:11 | Psychiatry Progress Note ---
Date of Encounter: 04/30/18 Time of Encounter: 12:37 Subjective Interval history: Patient seen today , case d/w treatment team , he states still not able to sleep and is feeling blah and restless , urge to move a lot, can be akhatasia from abilify . remains down , blah but not suicidal and no homicidal thought. denies psychosis today but had yesterday , today only like someone calling his name , will increase seroquel 300 mmg and dc abilify sec to akhatasia and depakote increased. Review of Systems Psychiatric: Reports: depression, anxiety, suicidal ideation, hopelessness, irritability, mood swings Results - Vital Signs Vital Signs: Temp Pulse Resp BP Pulse Ox 98.6 F 72 16 108/72 96 04/30/18 09:00 04/30/18 09:00 04/30/18 09:00 04/30/18 09:00 04/22/18 21:01 - Labs Labs: Laboratory Results - last 24 hr 04/29/18 04/30/18 23:27 07:41 POC Glucose 93 114 H Assessment and Plan (1) Suicidal ideations Current visit: Yes Status: Acute Risks, benefits, side effects, alternatives discussed w/pt: Yes Patient agreeable to treatment: Yes (2) Bipolar affective disorder, depressed, severe, with psychotic behavior Current visit: Yes Status: Acute Risks, benefits, side effects, alternatives discussed w/pt: Yes Patient agreeable to treatment: Yes Consult Discharge Plan - Plan Referrals: [facility] [Outside] - 04/30/18 11:00 am (The above appointment is with Sammy Olmos for outpatient mental health counseling services. You will see him again on 05/06/2018 at 1:00pm. You will see Dr. Whitehead, psychiatrist, on 06/10/2018 at 10:00am.) Manisha Oneill MD [Partnered Physician] - 05/13/18 9:20 am (The above appointment is with Manisha Oneill for primary healthcare and medication management services.) Psychiatry Exam - Constitutional Vitals: Temp Pulse Resp BP Pulse Ox 98.6 F 72 16 108/72 96 04/30/18 09:00 04/30/18 09:00 04/30/18 09:00 04/30/18 09:00 04/22/18 21:01 General appearance: age & developmentally appropriate - Musculoskeletal Gait: normal Station: other Strength & Tone: normal for patient - Psychiatric Patient Orientation: Yes Person, Yes Time, Yes Place Level of alertness: Alert Behavior: calm, cooperative Psychomotor activity: Normal Eye Contact: Maintains Eye Contact Mood Description: Other (blah) Affect description: congruent with mood Speech Volume: Normal Speech pattern: clear, coherent, slowed Language & Vocabulary: consistent with education Thought Process: Intact Thought Content: Yes Guilt Perceptual Disturbances: Yes Auditory hallucinations Attention Span Ability: Capable of Focused Attention Memory Description: Grossly Intact Patient Reliability: Reliable Historian Fund of knowledge: Yes average Intelligence Estimate: Average Judgment: Limited Insight: Partial
[2018-04-30] MEDS: Ibuprofen 400 MG TABLET PO PRN ×2 (13:24→20:18)
[2018-04-30] MEDS: (Canagliflozin [Invokana] 300 MG) PO SCH (20:17)
[2018-04-30] MEDS: Divalproex (12 HR) 500 MG TABLET PO SCH (20:20)
[2018-04-30] MEDS: hydrOXYzine pamoate 25 MG CAPSULE PO PRN (20:20)
[2018-05-01] MEDS: *HR* Metformin 500 MG TABLET PO SCH (08:10)
[2018-05-01] MEDS: Divalproex (12 HR) 500 MG TABLET PO SCH (08:12)
[2018-05-01] MEDS ORDERED: Nicotine 21 MG PATCH.TD24 TD SCH (09:00)
[2018-05-01 09:37] VITALS: BP 102/72
[2018-05-01] MEDS: Budesonide/Formoterol 160/4.5 1 PUFF INH IH SCH (10:18)
--- NOTE | 2018-05-01 11:48 | Discharge Summary ---
Date of Encounter: 05/01/18 Time of Encounter: 11:02 Diagnosis - Discharge Diagnosis (1) Suicidal ideations Status: Resolved Comments: patient denies any suicidal ideation at present and not in imenent danger to self/other. (2) Bipolar affective disorder, depressed, severe, with psychotic behavior Status: Acute Comments: Patient showed significant improvement with medications and unit milieu. Medications - Discharge Medications Prescriptions: Divalproex (12 HR) [Depakote (12 HR)] 500 mg PO BID #30 tablet. Nicotine Patch [Nicoderm] 21 mg TD DAILY #14 patch.[id number] Quetiapine Fumarate [Seroquel] 300 mg PO HS #14 tablet Sertraline [Zoloft] 50 mg PO DAILY #14 tablet Albuterol Sulfate [Ventolin Hfa] 2 puff IH QID PRN 04/23/18 [History] Budesonide/Formoterol 160/4.5 [Symbicort 160/4.5] 2 puff IH DAILY 04/23/18 [ History] Canagliflozin [Invokana] 300 mg PO HS 04/23/18 [History] Lisinopril [Zestril] 10 mg PO DAILY 04/23/18 [History] Omeprazole [PriLOSEC] 40 mg PO DAILY 04/23/18 [History] Propranolol HCl 40 mg PO BID 04/23/18 [History] Sertraline [Zoloft] 50 mg PO HS 04/23/18 [History] Simvastatin [Zocor] 40 mg PO HS 04/23/18 [History] metFORMIN [Glucophage] 500 mg PO BIDWM 04/23/18 [History] Divalproex (12 HR) [Depakote (12 HR)] 500 mg PO BID #30 tablet. 05/01/18 [Rx] Nicotine Patch [Nicoderm] 21 mg TD DAILY #14 patch.td24 05/01/18 [Rx] Omeprazole [PriLOSEC] 40 mg PO DAILY capsule. 05/01/18 [Rx] Quetiapine Fumarate [Seroquel] 300 mg PO HS #14 tablet 05/01/18 [Rx] Sertraline [Zoloft] 50 mg PO DAILY #14 tablet 05/01/18 [Rx] 3 Allergy/AdvReac Type Severity Reaction Status Date / Time azithromycin Allergy Hives Verified 01/12/18 11:44 [From Zithromax Z-Efraín] Darvocet Allergy Rash Uncoded 08/02/17 23:13 Provider Date of admission: 04/22/18 22:35 Primary care physician: PCP NONE Consults: 04/30/18 08:04 Consult to Hospitalist [CONS] Routine Consulting Provider: Hospitalist Radha Reason for Consult: Requesting Leodan Call Completed: No Psychiatry Exam - Constitutional Vitals: Temp Pulse Resp BP Pulse Ox 97.6 F 69 18 102/72 96 05/01/18 09:00 05/01/18 09:00 05/01/18 09:00 05/01/18 09:00 04/22/18 21:01 General appearance: age & developmentally appropriate, well-groomed, well- nourished - Musculoskeletal Gait: normal Station: relaxed Strength & Tone: normal for patient - Psychiatric Patient Orientation: Yes Person, Yes Time, Yes Place Level of alertness: Alert Behavior: calm, cooperative Psychomotor activity: Normal Eye Contact: Maintains Eye Contact Mood Description: Anxious Affect description: congruent with mood, full range Speech Volume: Normal Speech pattern: normal rate, normal rhythm, normal tone, fluent, spontaneous Language & Vocabulary: consistent with education Thought Process: Linear, Goal Oriented Thought Content: No Suicidal ideation, No Homicidal ideation, No Overt delusions Perceptual Disturbances: No Auditory hallucinations, No Visual hallucinations Attention Span Ability: Capable of Focused Attention Memory Description: Grossly Intact Patient Reliability: Reliable Historian Fund of knowledge: Yes abstraction ability, Yes aware of current events Intelligence Estimate: Average Judgment: Good Insight: Partial Hospital Course Hospital course: Mr. Stevens is a 52 year old male UPON ADMISSION Mr. Stevens is a 52 year old male admitted from the emergency department for depression and suicidal ideation. Patient went to see his counselor at [facility] suicidal thoughts and was referred to emergency department for medical clearance and admission. Patient has a long history of depression and anxiety also has a history of PTSD. He was hospitalized in 2010 after suicide attempt. He did not follow up or take medications after. Recently he was prescribed Zoloft by his PCP. He reports irregular sleep depressive feelings and lately suicidal ideation. 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 He has a medical history significant for diabetes and hypertension and his taken his medication and monitors his blood sugar. Patient did not elaborate on any triggers or precipitating factors that led to his visit to HOSPITAL COURSE : pATIENT showed improvement in his moods and psychosis , suicidal ideation , his diagnosis changed to bipolar as he gave h/o manic and derpessive episodes , he was started on depakote , seroquel increased to 300 mg and abilify dc as was causing akhatasia. he was given zoloft and dose decreased as felt edgy , seroquel 300 mg , depakote 1000 mg and zoloft 50 mg were tolerated by patient. AIMS0 depakote level given and still pending. [patient has support from family , will be discharged today as not suicidal/ homicidal, no psychosis. medically sugar control, has diabetes , hypercholestremia and HTN , he has PCP and will follow upon discharge. will be going for counselling and psych outpatient treatment. Time spent discussing smoking cessation with patient: 3 to 10 minutes Does patient wish to continue nicotine replacement upon disc: Yes (patient will continue nicotin patch) - Time Spent with Patient Total time spent providing and/or coordinating discharge services: Greater than 30 minutes Assessment and Plan - Patient/Caregiver Discharge Instructions Activity: resume usual activities as tolerated Diet: regular diet - Follow up Plan Follow up with: Tigist Sotelo [facility] [Outside] - 04/30/18 11:00 am (The above appointment is with Sammy Olmos for outpatient mental health counseling services. You will see him again on 05/06/2018 at 1:00pm. You will see Dr. Whitehead, psychiatrist, on 06/10/2018 at 10:00am.) Manisha Oneill MD [Partnered Physician] - 05/13/18 9:20 am (The above appointment is with Manisha Oneill for primary healthcare and medication management services.) Overall status at discharge: Stable Disposition: Home, Self-Care Quality - Multiple Antipsychotics Patient discharged on 2 or more antipsychotic medications: No Procedures - Procedures Procedures: Medication Management, Crisis Stabilization, Supportive Therapy, Group Therapy, Psychoeducational Therapy
[2018-05-01] MEDS: Ibuprofen 400 MG TABLET PO PRN (14:06)
== END 2018-05-01 14:30 | disposition home or self-care (01) | DRG 753 ==
LOC: EMEROOARM 20:55 → 1ANU 22:35 → SUATTDRO 22:35 → 1ANU 22:54
PROVIDERS: ADMIT Psychiatry & Neurology Psychiatry; ATTEND Psychiatry & Neurology Psychiatry

== ENCOUNTER 2019-01-01 22:32 | Inpatient (IN) ==
[2019-01-01] MEDS ORDERED: 0.9 % Sodium Chloride 1,000 ML IVC ONE (22:58)
--- NOTE | 2019-01-01 22:58 | Emergency Department Note ---
Disposition Clinical Impression: Diverticulitis, Syncope and collapse Disposition: Admitted As Inpatient Condition: Good Time of Disposition: 00:50 General Adult HPI - General Chief complaint: ED Weakness Stated complaint: weakness Time Seen by Provider: 01/01/19 22:44 Source: family Limitations: altered mental status, physical limitation Nursing Notes Reviewed: Yes Vital Signs Reviewed: Yes - History of Present Illness HPI Narrative: Patient history of diabetes, bipolar, recent colonoscopy 2 days ago presented for evaluation of generalized weakness with significant decreased strength the upper extremities, 4 out of 5. Patient with decreased the 5 out of 5 strength to the lower extremities. Patient had a difficult time being aroused while at home today. Patient is complaining of significant left-sided abdominal pain. Patient is complaining of a headache towards the describes his general as well a s going into his neck. Has required Botox injections in the past for headaches. Patient's initial glucose of 160 at bedside. EKG without any significant ST elevations or depressions. Patient will undergo further evaluation with blood work, CT imaging Pain Scale: 0 - Related Data Home Medications Medication Instructions Recorded Confirmed Albuterol Sulfate [Ventolin Hfa] 2 puff IH QID PRN 04/23/18 01/02/19 Budesonide/Formoterol 160/4.5 2 puff IH DAILY 04/23/18 01/02/19 [Symbicort 160/4.5] Lisinopril [Zestril] 10 mg PO DAILY 04/23/18 01/02/19 Propranolol HCl 40 mg PO BID 04/23/18 01/02/19 Simvastatin [Zocor] 40 mg PO HS 04/23/18 01/02/19 metFORMIN [Glucophage] 500 mg PO BIDWM 04/23/18 01/02/19 Depakote 1,000 mg PO HS 01/02/19 01/02/19 Divalproex (12 HR) [Depakote (12 500 mg PO DAILY 01/02/19 01/02/19 HR)] Quetiapine Fumarate [Seroquel] 200 mg PO HS 01/02/19 01/02/19 Sertraline [Zoloft] 100 mg PO DAILY 01/02/19 01/02/19 Previous Rx's Medication Instructions Recorded Omeprazole [PriLOSEC] 40 mg PO DAILY capsule. 05/01/18 Allergies Allergy/AdvReac Type Severity Reaction Status Date / Time azithromycin Allergy Hives Verified 11/07/18 19:43 [From Zithromax Z-Efraín] Darvocet Allergy Rash Uncoded 11/07/18 19:43 Review of Systems: CONSTITUTIONAL: Weakness and fatigue HEENT: Eyes: No visual changes. Ears, Nose, Throat: No hearing loss, difficulty talking or unable to swallow. SKIN: No rash or itching. CARDIOVASCULAR: syncope. Chest pain to the center of his chest intermittently for the last 2 weeks not worse with exertion and lasting approximately 3-5 minutes. RESPIRATORY: No shortness of breath, cough or sputum. GASTROINTESTINAL: No anorexia, nausea, vomiting or diarrhea. No abdominal pain or blood. GENITOURINARY: No burning on urination or hematuria. NEUROLOGICAL: Syncopal episode. No headache, dizziness, syncope, paralysis, ataxia, numbness or tingling in the extremities. No change in bowel or bladder control. MUSCULOSKELETAL: No muscle pain, back pain, joint pain or stiffness. Past Medical History - Past Medical History Medical history: Reports: asthma, diabetes, hyperlipidemia, hypertension, other Surgical history: Reports: angioplasty/stent, appendectomy, cholecystectomy, orthopedic, other Psychiatric history: Reports: anxiety, bipolar, depression, PTSD, prior suicide attempt, previous psychiatric hospitalization - Social History Smoking Status: Former smoker Smokeless Tobacco Status: Yes (chewing tobacco) Alcohol use: Reports: none Drug use: Reports: none Physical Exam General: Patient with generalized weakness and difficulty trying to get up in bed Head: Normocephalic Atraumatic Eyes: PERRL, EOMI ENT: Airway patent, no stridor Neck: supple, no meningismus Chest: Lungs clear to auscultation bilateral Cardiac: Regular rate and rhythm, no murmurs, rubs or gallops Abdomen: soft, moderate tenderness to the left lower quadrant with associated rebound tenderness, nondistended; no guarding Musculoskeletal: Generalized weakness throughout the arms and legs Skin: No rash, normal skin tone. Neuro: Alert and Oriented to person, place, and time; No obvious focal deficit. - General Limitations: altered mental status, physical limitation General appearance: lethargic Course - Reevaluation(s) Reevaluation #1: Patient overall has been feeling better while in the emergency department. Patient states that he feels generally weak. On further discussion the patient was s sitting in a chair this evening when he tried to get up and had syncopal episode falling between the chair and a side table. They had difficulty initially trying to arouse him. Patient is been continually weak since. Patient CT scan of the head and cervical spine are without abnormality. Patient was found to have a pulmonary nodule as well as diverticulitis. Given the patient's significant diverticulitis which they state will require surgery in the upcoming future as well as significant polyps that were removed patient will be treated with antibiotics. Overall the patient was attempted to be discharged. Patient was undergoing an ambulation trial with the patient was unable to ambulate secondary to lightheadedness as well as feeling like he was going to pass out with weakness in the legs and feeling as if they were going to give out. Patient has no acute EKG changes. Blood work is otherwise unremarkable. Patient will be admitted for further management. Vital Signs Temperature 98.4 F 01/01/19 22:36 Pulse Rate 68 01/01/19 22:36 Respiratory Rate 20 01/01/19 22:36 Blood Pressure 171/93 01/01/19 22:36 O2 Sat by Pulse Oximetry 97 01/01/19 22:36 Temperature 97.8 F 01/02/19 11:06 Pulse Rate 61 01/02/19 11:06 Respiratory Rate 20 01/02/19 11:06 Blood Pressure 97/60 01/02/19 11:06 O2 Sat by Pulse Oximetry 92 01/02/19 11:06 Oxygen Delivery Oxygen Delivery Room Air Medical Decision Making - Medical Records Medical records reviewed: Yes I reviewed the patient's medical records. - Lab Data Lab results reviewed: Yes I reviewed the patient's lab results. Result diagrams: 01/01/19 23:16 01/01/19 23:16 Lab Results 01/01/19 01/01/19 01/01/19 Range/Units 23:16 23:16 23:16 WBC 10.7 (4.3-11.1) K/mcL RBC 4.45 (4.19-5.50) M/mcL Hgb 13.4 (12.9-16.9) g/dL Hct 40.3 (37.5-50.1) % MCV 90.6 (83.0-100.0) fL MCH 30.1 (28.0-33.3) pg MCHC 33.3 (31.6-35.5) g/dL RDW 11.9 (11.5-14.5) % Plt Count 174 (140-400) K/mcL MPV 11.3 (9.4-12.4) fL Immature Gran % 0.6 (0-4) % Seg Neutrophils % 59.6 % Lymphocytes % 25.7 % Monocytes % 10.8 % Eosinophils % 2.7 % Basophils % 0.6 % Neutrophils # 6.4 (1.6-8.9) K/mcL Lymphocytes # 2.8 (0.6-4.6) K/mcL Monocytes # 1.2 (0.0-1.3) K/mcL Eosinophils # 0.3 (0.0-0.6) K/mcL Basophils # 0.1 (0.0-0.2) K/mcL Sodium 135 L (136-145) mEq/L Potassium 4.1 (3.5-5.1) mEq/L Chloride 104 (98-107) mEq/L Carbon Dioxide 22 L (23-29) mEq/L BUN 14 (6-20) mg/dL Creatinine 0.75 (0.70-1.30) mg/dL Est GFR ( Amer) > 60 (> 60) Est GFR (Non-Af Amer) > 60 (> 60) BUN/Creatinine Ratio 19 (6-26) Glucose 178 H (70-105) mg/dL Calculated Osmolality 285 (280-300) Lactic Acid 2.1 (0.5-2.2) mmol/L Calcium 9.1 (8.6-10.3) mg/dL Phosphorus 2.9 (2.7-4.5) mg/dL Total Bilirubin 0.3 (0.3-1.0) mg/dL AST 23 (13-39) Units/L ALT 29 (7-52) Units/L Alkaline Phosphatase 61 (34-104) Units/L Troponin I < 0.03 (< 0.04) ng/mL Serum Total Protein 7.1 (6.4-8.9) g/dL Albumin 4.0 (3.5-5.7) g/dL Globulin 3.1 (2.4-3.5) g/dL Albumin/Globulin Ratio 1.3 (1.1-2.2) Urine Color (Yellow) Urine Clarity (Clear) Urine pH (5.0-8.0) pH Units Ur Specific [place] (1.010-1.025) Urine Protein (Neg-Trace) mg/dL Urine Glucose (UA) (Normal) mg/dL Urine Ketones (Negative) mg/dL Urine Blood (Negative) Urine Nitrite (Negative) Urine Bilirubin (Negative) Urine Urobilinogen (Normal) mg/dL Ur Leukocyte Esterase (Negative) Ur Culture Indicated? (NO) 01/02/19 01/02/19 Range/Units 00:21 03:01 WBC (4.3-11.1) K/mcL RBC (4.19-5.50) M/mcL Hgb (12.9-16.9) g/dL Hct (37.5-50.1) % MCV (83.0-100.0) fL MCH (28.0-33.3) pg MCHC (31.6-35.5) g/dL RDW (11.5-14.5) % Plt Count (140-400) K/mcL MPV (9.4-12.4) fL Immature Gran % (0-4) % Seg Neutrophils % % Lymphocytes % % Monocytes % % Eosinophils % % Basophils % % Neutrophils # (1.6-8.9) K/mcL Lymphocytes # (0.6-4.6) K/mcL Monocytes # (0.0-1.3) K/mcL Eosinophils # (0.0-0.6) K/mcL Basophils # (0.0-0.2) K/mcL Sodium (136-145) mEq/L Potassium (3.5-5.1) mEq/L Chloride (98-107) mEq/L Carbon Dioxide (23-29) mEq/L BUN (6-20) mg/dL Creatinine (0.70-1.30) mg/dL Est GFR ( Amer) (> 60) Est GFR (Non-Af Amer) (> 60) BUN/Creatinine Ratio (6-26) Glucose (70-105) mg/dL Calculated Osmolality (280-300) Lactic Acid 1.4 (0.5-2.2) mmol/L Calcium (8.6-10.3) mg/dL Phosphorus (2.7-4.5) mg/dL Total Bilirubin (0.3-1.0) mg/dL AST (13-39) Units/L ALT (7-52) Units/L Alkaline Phosphatase (34-104) Units/L Troponin I (< 0.04) ng/mL Serum Total Protein (6.4-8.9) g/dL Albumin (3.5-5.7) g/dL Globulin (2.4-3.5) g/dL Albumin/Globulin Ratio (1.1-2.2) Urine Color Yellow (Yellow) Urine Clarity Clear (Clear) Urine pH 6.0 (5.0-8.0) pH Units Ur Specific [place] 1.024 (1.010-1.025) Urine Protein Trace (Neg-Trace) mg/dL Urine Glucose (UA) Normal (Normal) mg/dL Urine Ketones Trace H (Negative) mg/dL Urine Blood Negative (Negative) Urine Nitrite Negative (Negative) Urine Bilirubin Negative (Negative) Urine Urobilinogen Normal (Normal) mg/dL Ur Leukocyte Esterase Negative (Negative) Ur Culture Indicated? NO (NO) - Radiology Data Radiology results reviewed: Yes I reviewed the patient's radiology results. Chest X-Ray 01/01/19 22:58 IMPRESSION: No acute process. D/ / Arron Moran MD / Arron Moran MD Interpreting Provider: Arron Moran MD Head CT 01/02/19 22:58 IMPRESSION: Head CT: No acute intracranial abnormality. Cervical spine CT: No acute abnormality. D/ / Arron Moran MD / Arron Moran MD Interpreting Provider: Arron Moran MD Abdomen/Pelvis CT 01/02/19 22:59 IMPRESSION: Findings are suggestive of mild diverticulitis along the descending colon. Nonobstructing right nephrolithiasis. Left renal atrophy and scarring. New 8 mm noncalcified left lower lobe pulmonary nodule. Follow-up recommendations are as below. RECOMMENDATIONS: Fleischner Society guidelines for follow-up and management of incidentally detected pulmonary nodules: Single Solid Nodule: Nodule size less than 6 mm In a low-risk patient, no routine follow-up. In a high-risk patient, optional CT at 12 months. Nodule size equals 6-8 mm In a low-risk patient, CT at 6-12 months, then consider CT at 18-24 months. In a high-risk patient, CT at 6-12 months, then CT at 18-24 months. Nodule size greater than 8 mm In a low-risk patient, consider CT at 3 months, PET/CT, or tissue sampling. In a high-risk patient, consider CT at 3 months, PET/CT, or tissue sampling. Multiple Solid Nodules: Nodule size less than 6 mm In a low-risk patient, no routine follow-up. In a high-risk patient, optional CT at 12 months. Nodule size equals 6-8 mm In a low-risk patient, CT at 3-6 months, then consider CT at 18-24 months. In a high-risk patient, CT at 3-6 months, then CT at 18-24 months. Nodule size greater than 8 mm In a low-risk patient, CT at 3-6 months, then consider CT at 18-24 months. In a high-risk patient, CT at 3-6 months, then CT at 18-24 months. - Low risk patients include individuals with minimal or absent history of smoking and other known risk factors. - High risk patients include individuals with a history or smoking or known risk factors. Radiology 2017 http://pubs.rsna.org/doi/full/10.1148/radiol.[email or web address] D/ / Satish Leon MD / Satish Leon MD Interpreting Provider: Satish Leon MD Cervical Spine CT 01/02/19 23:00 IMPRESSION: Head CT: No acute intracranial abnormality. Cervical spine CT: No acute abnormality. D/ / Arron Moran MD / Arron Moran MD Interpreting Provider: Arron Moran MD - EKG Data EKG #1 EKG attestation: Yes I reviewed and interpreted this EKG. EKG results narrative: EKG shows sinus rhythm with a heart rate of 68 CT 152 QRS [address] elevations or depressions.
[2019-01-01 23:28] LABS: Basophils # 0.1 K/mcL (0.0-0.2); Basophils % 0.6 %; Eosinophils # 0.3 K/mcL (0.0-0.6); Eosinophils % 2.7 %; Hematocrit 40.3 % (37.5-50.1); Hemoglobin 13.4 g/dL (12.9-16.9); Immature Granulocytes % 0.6 % (0-4); Lymphocytes # 2.8 K/mcL (0.6-4.6); Lymphocytes % 25.7 %; Mean Corpuscular HGB Conc 33.3 g/dL (31.6-35.5); Mean Corpuscular Hemoglobin 30.1 pg (28.0-33.3); Mean Corpuscular Volume 90.6 fL (83.0-100.0); Mean Platelet Volume 11.3 fL (9.4-12.4); Monocytes # 1.2 K/mcL (0.0-1.3); Monocytes % 10.8 %; Neutrophils # 6.4 K/mcL (1.6-8.9); Platelet Count 174 K/mcL (140-400); Red Blood Count 4.45 M/mcL (4.19-5.50); Red Cell Distribution Width 11.9 % (11.5-14.5); Segmented Neutrophils % 59.6 %
[2019-01-01 23:50] LABS: Alanine Aminotransferase 29 Units/L (7-52); Albumin/Globulin Ratio 1.3 (1.1-2.2); Alkaline Phosphatase 61 Units/L (34-104); Aspartate Amino Transferase 23 Units/L (13-39); BUN/Creatinine Ratio 19 (6-26); Bilirubin,Total 0.3 mg/dL (0.3-1.0); Blood Urea Nitrogen 14 mg/dL (6-20); Calcium 9.1 mg/dL (8.6-10.3); Carbon Dioxide 22 mEq/L (23-29); Chloride 104 mEq/L (98-107); Globulin 3.1 g/dL (2.4-3.5); Glucose 178 mg/dL (70-105); Osmolality,Calculated 285 (280-300); Phosphorous 2.9 mg/dL (2.7-4.5); Potassium 4.1 mEq/L (3.5-5.1); Sodium 135 mEq/L (136-145); Total Protein 7.1 g/dL (6.4-8.9); Troponin I < 0.03 ng/mL (< 0.04); eGFR For Non-African Americans > 60 (> 60)
[2019-01-02 00:35] LABS: Bilirubin,Urine Negative (Negative); Blood,Urine Negative (Negative); Clarity,Urine Clear (Clear); Color,Urine Yellow (Yellow); Glucose,Urine (UA) Normal (Normal); Ketones,Urine Trace mg/dL (Negative); Leukocyte Esterase,Urine Negative (Negative); Nitrite,Urine Negative (Negative); Protein,Urine Trace mg/dL (Neg-Trace); Specific Gravity,Urine 1.024 (1.010-1.025); Urobilinogen,Urine Normal (Normal)
[2019-01-02] MEDS ORDERED: MetroNIDAZOLE 500 MG/100 ML 500 MG/100 ML BAG IVPB ONE (01:24)
[2019-01-02] MEDS ORDERED: *HR* FentaNYL (PF) 100 MCG/2 ML VIAL IVP ONE ×2 (01:24→05:43)
[2019-01-02] MEDS ORDERED: Ondansetron 4 MG/2 ML VIAL IVP ONE (01:25)
[2019-01-02] MEDS ORDERED: 0.9 % Sodium Chloride 1,000 ML IVC SCH ×3 (01:45→06:26)
[2019-01-02] MEDS ORDERED: Naloxone 0.4 MG/ML INJ IVP PRN (05:43)
[2019-01-02] MEDS: *HR* Heparin 5,000 UNIT/ML VIAL SQ SCH ×2 (06:36→17:30)
--- NOTE | 2019-01-02 06:40 | Internal Med History&Physical ---
Date of Encounter: 01/02/19 Time of Encounter: 05:20 Internal Medicine - H&P: HPI Chief complaint: abdominal pain Admitted From: Emergency Dept Plans for Post Hospital Care: Home History of present illness: Mr. Stevens is a 53 year old male who presents to the ER tonight with complaints of intense abdominal pain, nausea, vomiting, and subjective fever. He had colonoscopy with polypectomy performed roughly 36 hours prior to his ER presentation. Workup in ER revealed patient to have evidence of diverticulitis on CT imaging. He was subsequently admitted to hospitalist service for further workup and care. Upon my assessment of the patient, he and his confirmed above history. He states he has had recurrent bouts of diverticulitis of the sigmoid colon. He had a colonoscopy performed by Dr. Godfrey prior to a planned future sigmoid resection. However, after his colonoscopy 2 days ago, he had recurrence of d iverticulitis again. He denies any rectal bleeding, melena, or hematemesis. He denies any dysuria, hematuria, or flank pain. Of note, he was found to have evidence of a left lower lobe pulmonary nodule on his CT imaging. This will need follow-up with pulmonology. Past Med Surg Social Fam HX - Past Medical History Attestation: Yes The following information was validated with the patient. Source: patient, old records reviewed, obtained from family Medical history: asthma, diabetes, hyperlipidemia, hypertension, other Additional medical history: onychomtcosis, diverticulitis Psychiatric history: anxiety, bipolar, depression, PTSD, prior suicide attempt, previous psychiatric hospitalization - Past Surgical History Surgical History: angioplasty/stent, appendectomy, cholecystectomy, orthopedic, other Additional surgical history: left knee - Social History Smoking Status: Former smoker Smokeless Tobacco Status: Yes (chewing tobacco) Alcohol use: none Drug use: none Current living situation: Home, With Family Activity Level: Independent ambulation Recent Out of Country Travel Within the Last 8 Weeks: No - Family History Mother Hx Family GI Disorders: No Father Hx Family GI Disorders: No Internal Medicine - H&P: Meds Albuterol Sulfate [Ventolin Hfa] 2 puff IH QID PRN 04/23/18 [History] Budesonide/Formoterol 160/4.5 [Symbicort 160/4.5] 2 puff IH DAILY 04/23/18 [History] Lisinopril [Zestril] 10 mg PO DAILY 04/23/18 [History] Propranolol HCl 40 mg PO BID 04/23/18 [History] Simvastatin [Zocor] 40 mg PO HS 04/23/18 [History] metFORMIN [Glucophage] 500 mg PO BIDWM 04/23/18 [History] Omeprazole [PriLOSEC] 40 mg PO DAILY capsule. 05/01/18 [Rx] Depakote 1,000 mg PO HS 01/02/19 [History] Divalproex (12 HR) [Depakote (12 HR)] 500 mg PO DAILY 01/02/19 [History] Quetiapine Fumarate [Seroquel] 200 mg PO HS 01/02/19 [History] Sertraline [Zoloft] 100 mg PO DAILY 01/02/19 [History] Allergy/AdvReac Type Severity Reaction Status Date / Time azithromycin Allergy Hives Verified 11/07/18 19:43 [From Zithromax Z-Efraín] Darvocet Allergy Rash Uncoded 11/07/18 19:43 - Constitutional Constitutional: fever(s), no chills, no night sweats - EENT Eyes: no blurry vision, no change in vision Ears: no ear pain, no tinnitus Nose, mouth and throat: no nasal congestion, no sinus pressure, no sore throat - Cardiovascular Cardiovascular ROS IM: no chest pain, no dyspnea, no lightheadedness, no palpitations - Respiratory Respiratory: no cough, no hemoptysis, no chest congestion, no change in phlegm color - Gastrointestinal Gastrointestinal: abdominal pain, nausea, vomiting, no diarrhea, no hematemesis, no hematochezia, no melena - Genitourinary Genitourinary ROS male: no dysuria, no flank pain, no hematuria - Musculoskeletal Musculoskeletal ROS IM: no arthralgias, no back pain - Integumentary Integumentary IM: no rash, no jaundice - Neurological Neurological ROS: no disequilibrium, no dizziness, no focal weakness, no frequent falls, no headache(s) - Psychiatric Psychiatric: no anxiety, no depression - Endocrine Endocrine IM: no polydipsia, no polyuria - Allergic/Immunologic Allergic/Immunologic: GI upset with certain foods, no wheezing - Constitutional Vitals: Temp Pulse Resp BP Pulse Ox 97.7 F 73 16 113/73 96 01/02/19 02:49 01/02/19 02:49 01/02/19 02:49 01/02/19 02:49 01/02/19 02:49 General appearance: Present: cooperative, mild distress, A&O X 3, pleasant, answers questions appropriately Exam: see below - Head Head exam: Present: atraumatic, normal inspection - Eye Eye exam: Present: EOMI, PERRL. Absent: scleral icterus Pupils: Present: normal accommodation - ENT ENT exam: Present: mucous membranes dry, normal exam, normal oropharynx - Neck Neck exam general surgery: Present: full ROM, supple, trachea midline. Absent: tenderness, nuchal rigidity, thyromegaly - Respiratory Respiratory exam: Present: CTAB. Absent: chest wall tenderness, rales, rhonchi, wheezes - Cardiovascular Cardiovascular exam: Present: RRR, +S1, +S2. Absent: diastolic murmur, systolic murmur - GI/Abdominal GI/Abdominal exam: Present: guarding, hypoactive bowel sounds, soft, tenderness (moderate pain LLQ), no peritoneal signs. Absent: hepatomegaly, rebound, sp lenomegaly - Extremities Exam Extremities exam: Present: warm, radial pulses palpable and symmetrical. Absent: calf tenderness, joint swelling, pedal edema, tenderness - Back Exam Back exam: Absent: CVA tenderness (L), CVA tenderness (R) - Neurological Exam Neurological exam: Present: alert, oriented X3, no focal deficits, strengths equal and symetr throughout - Psychiatric Psychiatric exam: Present: normal affect, normal mood - Skin Skin exam: Present: dry, intact, warm Internal Med - H&P Results - Labs CBC & Chem 7: 01/01/19 23:16 01/01/19 23:16 Labs: Short CBC 01/01/19 Range/Units 23:16 WBC 10.7 (4.3-11.1) K/mcL Hgb 13.4 (12.9-16.9) g/dL Hct 40.3 (37.5-50.1) % Plt Count 174 (140-400) K/mcL Neutrophils # 6.4 (1.6-8.9) K/mcL BMP 01/01/19 23:16 Sodium 135 L Potassium 4.1 Chloride 104 Carbon Dioxide 22 L BUN 14 Creatinine 0.75 Glucose 178 H Calcium 9.1 Cardiac Enzymes 01/01/19 Range/Units 23:16 Troponin I < 0.03 (< 0.04) ng/mL Liver Function 01/01/19 Range/Units 23:16 Total Bilirubin 0.3 (0.3-1.0) mg/dL AST 23 (13-39) Units/L ALT 29 (7-52) Units/L Alkaline Phosphatase 61 (34-104) Units/L Albumin 4.0 (3.5-5.7) g/dL Urine 01/02/19 Range/Units 00:21 Urine Color Yellow (Yellow) Urine Clarity Clear (Clear) Urine pH 6.0 (5.0-8.0) pH Units Ur Specific [place] 1.024 (1.010-1.025) Urine Protein Trace (Neg-Trace) mg/dL Urine Glucose (UA) Normal (Normal) mg/dL - Impressions ITS Impressions Chest X-Ray 01/01/19 22:58 IMPRESSION: No acute process. D/ / Arron Moran MD / Arron Moran MD Interpreting Provider: Arron Moran MD Head CT 01/02/19 22:58 IMPRESSION: Head CT: No acute intracranial abnormality. Cervical spine CT: No acute abnormality. D/ / Arron Moran MD / Arron Moran MD Interpreting Provider: Arron Moran MD Abdomen/Pelvis CT 01/02/19 22:59 IMPRESSION: Findings are suggestive of mild diverticulitis along the descending colon. Nonobstructing right nephrolithiasis. Left renal atrophy and scarring. New 8 mm noncalcified left lower lobe pulmonary nodule. Follow-up recommendations are as below. RECOMMENDATIONS: Fleischner Society guidelines for follow-up and management of incidentally detected pulmonary nodules: Single Solid Nodule: Nodule size less than 6 mm In a low-risk patient, no routine follow-up. In a high-risk patient, optional CT at 12 months. Nodule size equals 6-8 mm In a low-risk patient, CT at 6-12 months, then consider CT at 18-24 months. In a high-risk patient, CT at 6-12 months, then CT at 18-24 months. Nodule size greater than 8 mm In a low-risk patient, consider CT at 3 months, PET/CT, or tissue sampling. In a high-risk patient, consider CT at 3 months, PET/CT, or tissue sampling. Multiple Solid Nodules: Nodule size less than 6 mm In a low-risk patient, no routine follow-up. In a high-risk patient, optional CT at 12 months. Nodule size equals 6-8 mm In a low-risk patient, CT at 3-6 months, then consider CT at 18-24 months. In a high-risk patient, CT at 3-6 months, then CT at 18-24 months. Nodule size greater than 8 mm In a low-risk patient, CT at 3-6 months, then consider CT at 18-24 months. In a high-risk patient, CT at 3-6 months, then CT at 18-24 months. - Low risk patients include individuals with minimal or absent history of smoking and other known risk factors. - High risk patients include individuals with a history or smoking or known risk factors. Radiology 2017 http://pubs.rsna.org/doi/full/10.1148/radiol.9421625401 D/ / Satish Leon MD / Satish Leon MD Interpreting Provider: Satish Leon MD Cervical Spine CT 01/02/19 23:00 IMPRESSION: Head CT: No acute intracranial abnormality. Cervical spine CT: No acute abnormality. D/ / Arron Moran MD / Arron Moran MD Interpreting Provider: Arron Moran MD - Diagnostic Studies CT scan - abdomen Status: image reviewed by me (diverticulitis; lung nodule noted) - Assessment and Plan (1) Diverticulitis Current Visit: Yes Status: Acute Assessment and plan: 1. Will keep npo. 2. IV Flagyl and Cipro. 3. Pain and nausea control. 4. Consult surgery (Dr. Godfrey) given recent colonoscopy and polypectomy. (2) Pulmonary nodule Current Visit: Yes Status: Acute Assessment and plan: 1. Will need outpatient follow up with pulmonary. (3) Bipolar disease, chronic Current Visit: Yes Status: Chronic Assessment and plan: 1. Continue home meds as appropriate. 2. No acute issues presently. 3. Outpatient follow up with psychiatry. (4) DVT prophylaxis Current Visit: Yes Status: Acute Assessment and plan: 1. Heparin SQ.
--- NOTE | 2019-01-02 07:48 | General Surgery Consult Note ---
Date of Encounter: 01/02/19 Time of Encounter: 07:45 Assessment and Plan (1) Diverticulitis Current Visit: Yes Status: Acute I have personally reviewed his CT results and if this is a diverticulitis episode it is very early in its course, this may also be related to recent polypectomy and tattoo injection of his colon during colonoscopy 2 days ago. (al most no inflammation on CT). continue antibiotics serial abdominal exams start clears will follow (2) HTN (hypertension) Current Visit: Yes Status: Chronic ok to continue home meds Qualifiers: Hypertension type: essential hypertension Qualified Code(s): I10 - Essential (primary) hypertension (3) Hyperlipidemia Current Visit: Yes Status: Chronic ok continue home simvastatin Qualifiers: Hyperlipidemia type: unspecified Qualified Code(s): E78.5 - Hyperlipidemia, unspecified (4) Depression Current Visit: No Status: Chronic continue home meds Qualifiers: Depression Type: major depressive disorder Major depression recurrence: recurrent Active/Remission status: currently active Major depression episode severity: severe Psychotic features: without psychotic features Qualified Code(s): F33.2 - Major depressive disorder, recurrent severe without psychotic features History of Present Illness Consult date: 01/02/19 Reason for consult: abdominal pain Requesting physician: Gurwinder Lopez History of present illness: Patient is well known to me. He has previously had 5 episodes of diverticulitis. He underwent colonoscopy 2 days ago (Sunday) and multiple polyps were removed and an area of descending colon was tattoo'd. He started having left sided abdominal pain after colonoscopy. He has been having nausea and vomiting as well. He had presented to ED due to these symptoms an CT abd pelvis done showing "Diverticulosis is present. Mild induration of fat is again seen at the junction of the descending colon and sigmoid colon. Increased induration of fat, mild in degree, along the pericolic gutter adjacent to the descending colon. " Past Med Surg Social Fam HX - Past Medical History Source: patient Medical history: asthma, diabetes, hyperlipidemia, hypertension, other Additional medical history: onychomtcosis, diverticulitis Psychiatric history: anxiety, bipolar, depression, PTSD, prior suicide attempt, previous psychiatric hospitalization - Past Surgical History Surgical History: angioplasty/stent, appendectomy, cholecystectomy, orthopedic, other Additional surgical history: left knee - Social History Smoking Status: Former smoker Smokeless Tobacco Status: Yes (chewing tobacco) Alcohol use: none Drug use: none - Family History Mother Hx Family GI Disorders: No Father Hx Family GI Disorders: No Medications and Allergies Albuterol Sulfate [Ventolin Hfa] 2 puff IH QID PRN 04/23/18 [History] Budesonide/Formoterol 160/4.5 [Symbicort 160/4.5] 2 puff IH DAILY 04/23/18 [History] Lisinopril [Zestril] 10 mg PO DAILY 04/23/18 [History] Propranolol HCl 40 mg PO BID 04/23/18 [History] Simvastatin [Zocor] 40 mg PO HS 04/23/18 [History] metFORMIN [Glucophage] 500 mg PO BIDWM 04/23/18 [History] Omeprazole [PriLOSEC] 40 mg PO DAILY capsule. 05/01/18 [Rx] Depakote 1,000 mg PO HS 01/02/19 [History] Divalproex (12 HR) [Depakote (12 HR)] 500 mg PO DAILY 01/02/19 [History] Quetiapine Fumarate [Seroquel] 200 mg PO HS 01/02/19 [History] Sertraline [Zoloft] 100 mg PO DAILY 01/02/19 [History] Allergy/AdvReac Type Severity Reaction Status Date / Time azithromycin Allergy Hives Verified 11/07/18 19:43 [From Zithromax Z-Efraín] Darvocet Allergy Rash Uncoded 11/07/18 19:43 Review of Systems All systems PM: reviewed and no additional remarkable complaints except as stated All systems PM: The remainder of the systems were reviewed and are negative General Surgery Exam Initial Vital Signs Temp Pulse Resp BP Pulse Ox 98.4 F 68 20 171/93 97 01/01/19 22:36 01/01/19 22:36 01/01/19 22:36 01/01/19 22:36 01/01/19 22:36 - General physical appearance well developed, well nourished, no distress - Eyes PERRL, normal ocular movement - ENT normal mucosa - Neck trachea midline - Respiratory normal expansion, clear to auscultation - Cardiovascular Cardiovascular exam: Present: RRR - Abdomen Abdomen general surgery: Present: bowel sounds present, soft, tender. Absent: distended, rebound, rigid Abdominal Tenderness: Present: LLQ - Integumentary Integumentary general surgery: Present: warm and dry, no abnormal pigmentation - Neurologic Present: CN 2-12 grossly intact - Musculoskeletal Present: normal posture - Psychiatric Psychiatric general surgery: Present: A&Ox3 Exam Initial Vital Signs Temp Pulse Resp BP Pulse Ox 98.4 F 68 20 171/93 97 01/01/19 22:36 01/01/19 22:36 01/01/19 22:36 01/01/19 22:36 01/01/19 22:36 Results - Labs 01/01/19 23:16 01/01/19 23:16 Abnormal lab results Sodium 135 mEq/L (136-145) L 01/01/19 23:16 Carbon Dioxide 22 mEq/L (23-29) L 01/01/19 23:16 Glucose 178 mg/dL (70-105) H 01/01/19 23:16 Trace mg/dL (Negative) H 01/02/19 00:21 Diabetes panel 01/01/19 Range/Units 23:16 Sodium 135 L (136-145) mEq/L Potassium 4.1 (3.5-5.1) mEq/L Chloride 104 (98-107) mEq/L Carbon Dioxide 22 L (23-29) mEq/L BUN 14 (6-20) mg/dL Creatinine 0.75 (0.70-1.30) mg/dL Glucose 178 H (70-105) mg/dL Calcium 9.1 (8.6-10.3) mg/dL AST 23 (13-39) Units/L ALT 29 (7-52) Units/L Alkaline Phosphatase 61 (34-104) Units/L Albumin 4.0 (3.5-5.7) g/dL Calcium panel 01/01/19 Range/Units 23:16 Calcium 9.1 (8.6-10.3) mg/dL Phosphorus 2.9 (2.7-4.5) mg/dL Albumin 4.0 (3.5-5.7) g/dL Pituitary panel 01/01/19 Range/Units 23:16 Sodium 135 L (136-145) mEq/L Potassium 4.1 (3.5-5.1) mEq/L Chloride 104 (98-107) mEq/L Carbon Dioxide 22 L (23-29) mEq/L BUN 14 (6-20) mg/dL Creatinine 0.75 (0.70-1.30) mg/dL Glucose 178 H (70-105) mg/dL Calcium 9.1 (8.6-10.3) mg/dL Adrenal panel 01/01/19 Range/Units 23:16 Sodium 135 L (136-145) mEq/L Potassium 4.1 (3.5-5.1) mEq/L Chloride 104 (98-107) mEq/L Carbon Dioxide 22 L (23-29) mEq/L BUN 14 (6-20) mg/dL Creatinine 0.75 (0.70-1.30) mg/dL Glucose 178 H (70-105) mg/dL Calcium 9.1 (8.6-10.3) mg/dL Total Bilirubin 0.3 (0.3-1.0) mg/dL AST 23 (13-39) Units/L ALT 29 (7-52) Units/L Alkaline Phosphatase 61 (34-104) Units/L Albumin 4.0 (3.5-5.7) g/dL All other labs normal. - Imaging CT scan - abdomen: report reviewed, image reviewed CT scan - pelvis: report reviewed, image reviewed Consult Discharge Plan - Plan Referrals: NONE,PCP [Primary Care Provider] -
[2019-01-02] MEDS: Divalproex (12 HR) 500 MG TABLET PO SCH ×2 (09:06→22:06)
[2019-01-02] MEDS: MetroNIDAZOLE 500 MG/100 ML 500 MG/100 ML BAG IVPB SCH ×2 (09:06→15:50)
[2019-01-02] MEDS: Acetaminophen 325 MG TABLET PO PRN ×2 (09:14→17:34)
--- NOTE | 2019-01-02 09:25 | Electrocardiograph Report ---
[place] [id number] Test Date: 2019-01-01 Pat Name: Baltazar Stevens Department: [id number] Room: 3A21 Gender: M Curer Acid Drum: : 1965 Requested By: Jorgito Zhang Order Number: [id number] Reading MD: Gio Mcleod Measurements Intervals [place] Rate: 68 P: 32 NE: 152 QRS: 24 QRSD: 88 T: 32 QT: 387 QTc: 412 Interpretive Statements Sinus rhythm Abnormal R-wave progression, early transition Electronically Signed On 01-02-2019 9:24:32 EDT by Gio Mcleod
[2019-01-02] MEDS: Budesonide/Formoterol 160/4.5 1 PUFF INH IH SCH (11:49)
[2019-01-02] MEDS ORDERED: *HR* Dextrose 50 % in Water (Syg) 50 ML SYRINGE IVP PRN (12:02)
[2019-01-02] MEDS ORDERED: D5% in Water 1,000 ML IVC PRN (12:02)
[2019-01-02] MEDS ORDERED: Dextrose Gel 15 GM/37.5 ML TUBE PO PRN ×2 (12:02)
--- NOTE | 2019-01-02 13:50 | Event Note ---
Date of Encounter: 01/02/19 Time of Encounter: 13:49 Patient is a 53y/o male admitted for diverticulitis. Reports improvement in pain and denies any nausea or vomiting at this time. Tolerating clear liquid diet at this time. Labs and vitals reviewed. continue current management. Surgery on board, evaluation appreciated.
[2019-01-02] MEDS: 0.9 % Sodium Chloride 1,000 ML IVC SCH (15:50)
[2019-01-02] MEDS: Insulin LISPRO 300 UNITS/3 ML VIAL SQ SCH ×2 (17:22→22:05)
[2019-01-02] MEDS: *HR* Promethazine 25 MG/ML VIAL IVP PRN (19:44)
[2019-01-03] MEDS: MetroNIDAZOLE 500 MG/100 ML 500 MG/100 ML BAG IVPB SCH ×3 (00:36→16:26)
[2019-01-03] MEDS: Acetaminophen 325 MG TABLET PO PRN ×3 (03:49→16:26)
[2019-01-03 04:38] LABS: Basophils # 0.1 K/mcL (0.0-0.2); Basophils % 0.8 %; Eosinophils # 0.3 K/mcL (0.0-0.6); Eosinophils % 4.9 %; Hematocrit 36.6 % (37.5-50.1); Hemoglobin 11.9 g/dL (12.9-16.9); Immature Granulocytes % 0.5 % (0-4); Lymphocytes # 2.6 K/mcL (0.6-4.6); Lymphocytes % 40.5 %; Mean Corpuscular HGB Conc 32.5 g/dL (31.6-35.5); Mean Corpuscular Volume 92.2 fL (83.0-100.0); Mean Platelet Volume 11.7 fL (9.4-12.4); Monocytes # 0.7 K/mcL (0.0-1.3); Monocytes % 10.7 %; Neutrophils # 2.8 K/mcL (1.6-8.9); Platelet Count 165 K/mcL (140-400); Red Blood Count 3.97 M/mcL (4.19-5.50); Red Cell Distribution Width 12.1 % (11.5-14.5); Segmented Neutrophils % 42.6 %
[2019-01-03 04:57] LABS: Alanine Aminotransferase 31 Units/L (7-52); Albumin 3.6 g/dL (3.5-5.7); Albumin/Globulin Ratio 1.4 (1.1-2.2); Alkaline Phosphatase 46 Units/L (34-104); Aspartate Amino Transferase 28 Units/L (13-39); BUN/Creatinine Ratio 14 (6-26); Bilirubin,Total 0.2 mg/dL (0.3-1.0); Blood Urea Nitrogen 10 mg/dL (6-20); Calcium 8.7 mg/dL (8.6-10.3); Carbon Dioxide 24 mEq/L (23-29); Chloride 107 mEq/L (98-107); Globulin 2.5 g/dL (2.4-3.5); Glucose 119 mg/dL (70-105); Magnesium 1.7 mg/dL (1.6-2.6); Osmolality,Calculated 292 (280-300); Sodium 141 mEq/L (136-145); Total Protein 6.1 g/dL (6.4-8.9); eGFR For Non-African Americans > 60 (> 60)
[2019-01-03 05:08] LABS: Prothrombin Time 11.1 Seconds (9.4-12.1)
[2019-01-03 05:11] LABS: Activated Partial Thrombo Time 32.4 Seconds (26.0-36.0)
[2019-01-03] MEDS: 0.9 % Sodium Chloride 1,000 ML IVC SCH ×3 (05:15→20:44)
[2019-01-03] MEDS: *HR* Heparin 5,000 UNIT/ML VIAL SQ SCH ×2 (05:15→18:13)
[2019-01-03] MEDS: Budesonide/Formoterol 160/4.5 1 PUFF INH IH SCH (07:29)
--- NOTE | 2019-01-03 07:51 | General Surgery Progress Note ---
Date of Encounter: 01/03/19 Time of Encounter: 07:30 - Assessment and Plan (1) Diverticulitis Current Visit: Yes Status: Acute As noted per attending surgeon note, if this is diverticulitis it is early in the course. Patient exam remains more tender than expected by CT findings. His abdominal exam is with involuntary guarding and right and left lower quadrant pain with mild palpation. Would recommend patient remain in the hospital for IV antibiotics. Consider repeat CAT scan on Sunday pending clinical course. Nursing notes reviewed: RN note on 01/02/2019 reports hospitalist advanced diet to full liquids. Surgical order remained for clear liquid diet. Patient reports someone brought him goldfish crackers last night despite clear liquid diet. Patient advised to refrain from eating anything that is not on his hospital diet as this could lead to increased pain or at worst perforation and the sequela that would follow. Patient verbalizes understanding and adherence. Plan: clear liquid diet continue IV antibiotics continue hospital cares per primary team consider repeat CT as above pending clinical course ambulate TID out of bed to chair TID Hood hose incentive spirometry trend labs (2) Syncope and collapse Current Visit: Yes Status: Acute Noted negative head and cervical spine CT's. Management per primary team (3) Bipolar disease, chronic Current Visit: Yes Status: Chronic Management per primary team. Patient is taking his home meds Subjective Patient reports: still having pain, tolerating liquids well, voiding w/o dif ficulty, no flatus, no bowel movement, afebrile Narrative: pt reports LLQ pain that is similar "maybe some better" than admission. He denies nausea or increased pain with liquids. He reports he was brought gold fish crackers last pm and this did not "seem" to cause worse pain. Objective Vital Signs - Last 8 Hours Temp Pulse Resp BP Pulse Ox 01/03/19 07:47 97.7 F 58 16 112/72 93 01/03/19 07:32 17 96 01/03/19 03:48 98.2 F 62 16 117/57 91 01/03/19 00:01 97.9 F 69 14 117/68 93 Intake and Output 01/02/19 01/02/19 01/03/19 15:59 23:59 07:59 Intake Total 340 / 2260 300 / 2260 0 / 0 Output Total 325 / 1225 900 / 1225 400 / 400 Balance 15 / 1035 -600 / 1035 -400 / -400 Intake: IV Fluids 100 2020 300 / 2020 Cipro Premix 400 MG/200 ML 400 200 / 200 mg In 200 ml @ 200 mls/hr IVPB Q12HR [facility] Rx#:[id number] Flagyl Premix 500 MG/100 ML 500 100 / 200 100 / 200 mg In 100 ml @ 100 mls/hr IVPB Q8HR [facility] Rx#:[id number] Oral 240 / 240 0 / 0 Output: Urine 325 / 1225 900 / 1225 400 / 400 Other: Meal clears Blood Glucose* 114 95 116 - General physical appearance well developed, well nourished, no distress, moderate pain (with light palpation) - Eyes normal ocular movement - ENT atraumatic, normocephalic, Other (ear gauges noted) - Neck Neck exam: trachea midline - Respiratory normal expansion, normal respiratory effort, clear to auscultation - Cardiovascular Cardiovascular exam: Present: RRR, distant heart sounds - Abdomen Abdomen: Present: bowel sounds present, soft, tender, guarding Abdominal Tenderness: RLQ, LLQ Hernia: none - Integumentary no rash, other (Tattoo arm sleeves noted) - Neurologic normal sensation - Musculoskeletal normal posture - Psychiatric oriented to time, oriented to person, oriented to place, speech is normal, memory intact - Labs 01/03/19 03:42 01/03/19 03:42 Diabetes panel 01/03/19 Range/Units 03:42 Sodium 141 (136-145) mEq/L Potassium 4.0 (3.5-5.1) mEq/L Chloride 107 (98-107) mEq/L Carbon Dioxide 24 (23-29) mEq/L BUN 10 (6-20) mg/dL Creatinine 0.74 (0.70-1.30) mg/dL Glucose 119 H (70-105) mg/dL Calcium 8.7 (8.6-10.3) mg/dL AST 28 (13-39) Units/L ALT 31 (7-52) Units/L Alkaline Phosphatase 46 (34-104) Units/L Albumin 3.6 (3.5-5.7) g/dL Calcium panel 01/03/19 Range/Units 03:42 Calcium 8.7 (8.6-10.3) mg/dL Albumin 3.6 (3.5-5.7) g/dL Pituitary panel 01/03/19 Range/Units 03:42 Sodium 141 (136-145) mEq/L Potassium 4.0 (3.5-5.1) mEq/L Chloride 107 (98-107) mEq/L Carbon Dioxide 24 (23-29) mEq/L BUN 10 (6-20) mg/dL Creatinine 0.74 (0.70-1.30) mg/dL Glucose 119 H (70-105) mg/dL Calcium 8.7 (8.6-10.3) mg/dL Adrenal panel 01/03/19 Range/Units 03:42 Sodium 141 (136-145) mEq/L Potassium 4.0 (3.5-5.1) mEq/L Chloride 107 (98-107) mEq/L Carbon Dioxide 24 (23-29) mEq/L BUN 10 (6-20) mg/dL Creatinine 0.74 (0.70-1.30) mg/dL Glucose 119 H (70-105) mg/dL Calcium 8.7 (8.6-10.3) mg/dL Total Bilirubin 0.2 L (0.3-1.0) mg/dL AST 28 (13-39) Units/L ALT 31 (7-52) Units/L Alkaline Phosphatase 46 (34-104) Units/L Albumin 3.6 (3.5-5.7) g/dL Consult Discharge Plan - Plan Referrals: NONE,PCP [Primary Care Provider] -
[2019-01-03] MEDS: Divalproex (12 HR) 500 MG TABLET PO SCH ×2 (08:38→20:40)
[2019-01-03] MEDS: Insulin LISPRO 300 UNITS/3 ML VIAL SQ SCH ×4 (08:39→20:41)
--- NOTE | 2019-01-03 13:51 | Internal Med Progress Note ---
Hospitalist Progress Note - Encounter Date of Encounter: 01/03/19 Time of Encounter: 13:48 - Subjective Interval History: Patient seen and examined at bedside. Patient resting in bed and reports improvement his abdominal pain compared to previous day. States he still feels nauseous but no vomiting reported. States he is tolerating clear liquid diet without any discomfort. No headache, dizziness, lightheadedness reported. Pt encouraged to get out of bed to chair with assistance and increase activity as tolerated. No overnight events reported Ten point ROS is negative except as listed above - Exam Vitals: Temp Pulse Resp BP Pulse Ox 97.7 F 58 16 114/76 93 01/03/19 12:16 01/03/19 12:16 01/03/19 12:16 01/03/19 12:16 01/03/19 12:16 Exam: General: No acute distress, AAO x 3, obese HEENT: EOMI, PERRLA, NC/AT, no scleral icterus Respiratory: Clear to auscultate bilaterally, no wheezing, no rales Cardiovascular: Regular, Rate, Rhythm, No murmurs GI: Soft, Non tender, non distended, normal bowel sounds Ext: No edema, no tenderness, positive pulses Neuro: AAO x 3, no focal deficits, CN II-XII grossly intact Rest of the clinical exam is noncontributory - Assessment and Plan (1) Diverticulitis Current Visit: Yes Status: Acute Assessment and Plan: Surgery evaluation appreciated will continue IV abx advance diet as per surgery anti-emetic support as needed (2) Pulmonary nodule Current Visit: Yes Status: Acute Assessment and Plan: incidental finding on CT abd/pelvis nodules reported on lower chest imaging clinically asymptomatic outpatient follow up with pulmonology on discharge (3) Bipolar disease, chronic Current Visit: Yes Status: Chronic Assessment and Plan: Continue home meds (4) DVT prophylaxis Current Visit: Yes Status: Acute Assessment and Plan: Heparin SQ - Time Spent with Patient Total time spent is greater than 50% in coordination of care (as documented) at patient's floor/unit and/or counseling patient: 25 - 35 minutes Plan of Care Discussed with: patient (patient/RN/case management) Internal Medicine: Result - Labs CBC & Chem 7: 01/03/19 03:42 01/03/19 03:42 Labs: Short CBC 01/03/19 Range/Units 03:42 WBC 6.5 (4.3-11.1) K/mcL Hgb 11.9 L D (12.9-16.9) g/dL Hct 36.6 L (37.5-50.1) % Plt Count 165 (140-400) K/mcL Neutrophils # 2.8 (1.6-8.9) K/mcL BMP 01/03/19 03:42 Sodium 141 Potassium 4.0 Chloride 107 Carbon Dioxide 24 BUN 10 Creatinine 0.74 Glucose 119 H Calcium 8.7 Liver Function 01/03/19 Range/Units 03:42 Total Bilirubin 0.2 L (0.3-1.0) mg/dL AST 28 (13-39) Units/L ALT 31 (7-52) Units/L Alkaline Phosphatase 46 (34-104) Units/L Albumin 3.6 (3.5-5.7) g/dL - ABG Interpretation ABG results: PT/INR, D-dimer PT 11.1 Seconds (9.4-12.1) 01/03/19 03:42 Consult Discharge Plan - Plan Referrals: NONE,PCP [Primary Care Provider] -
[2019-01-04] MEDS: MetroNIDAZOLE 500 MG/100 ML 500 MG/100 ML BAG IVPB SCH ×3 (00:01→15:40)
[2019-01-04] MEDS: Acetaminophen 325 MG TABLET PO PRN ×3 (03:40→21:59)
[2019-01-04] MEDS: *HR* Heparin 5,000 UNIT/ML VIAL SQ SCH ×2 (06:00→17:09)
--- NOTE | 2019-01-04 06:37 | Internal Med Progress Note ---
Hospitalist Progress Note - Encounter Date of Encounter: 01/04/19 Time of Encounter: 06:35 - Subjective Interval History: She was seen and examined. Remains very tender and also quadrant. Tolerating clears. Nausea is better. - Exam Vitals: Temp Pulse Resp BP Pulse Ox 98.0 F 56 16 115/69 93 01/04/19 03:37 01/04/19 03:37 01/04/19 03:37 01/04/19 03:37 01/04/19 03:37 Exam: ExGEN: NAD CVS: RRR. S1, S2, No m/r/g RESP: CTAB ABD: Soft, LLQ tenderness, ND, +BS EXT: No edema. 2+ DP. No rashes NEURO: Nonfocalm - Assessment and Plan (1) Diverticulitis Current Visit: Yes Status: Acute Assessment and Plan: Continue current IV Cipro and Flagyl. Surgery is following. Continue pain control and antiemetics. Continue IV fluids. Surgery to advance diet as they see fit. I think he would benefit from at least another day of hospitalization. (2) Pulmonary nodule Current Visit: Yes Status: Acute Assessment and Plan: incidental finding on CT abd/pelvis nodules reported on lower chest imaging clinically asymptomatic outpatient follow up with pulmonology on discharge (3) Bipolar disease, chronic Current Visit: Yes Status: Chronic Assessment and Plan: Continue home meds (4) DVT prophylaxis Current Visit: Yes Status: Acute Assessment and Plan: Heparin SQ - Time Spent with Patient Total time spent is greater than 50% in coordination of care (as documented) at patient's floor/unit and/or counseling patient: Internal Medicine: Result - Labs CBC & Chem 7: 01/03/19 03:42 01/03/19 03:42 - ABG Interpretation ABG results: PT/INR, D-dimer PT 11.1 Seconds (9.4-12.1) 01/03/19 03:42 Consult Discharge Plan - Plan Referrals: NONE,PCP [Primary Care Provider] -
[2019-01-04] MEDS: Budesonide/Formoterol 160/4.5 1 PUFF INH IH SCH (07:26)
[2019-01-04 07:33] LABS: BUN/Creatinine Ratio 9 (6-26); Blood Urea Nitrogen 7 mg/dL (6-20); Calcium 8.5 mg/dL (8.6-10.3); Carbon Dioxide 25 mEq/L (23-29); Chloride 107 mEq/L (98-107); Glucose 118 mg/dL (70-105); Magnesium 1.5 mg/dL (1.6-2.6); Osmolality,Calculated 287 (280-300); Phosphorous 3.8 mg/dL (2.7-4.5); Potassium 3.5 mEq/L (3.5-5.1); Sodium 139 mEq/L (136-145); eGFR For Non-African Americans > 60 (> 60)
[2019-01-04] MEDS: Insulin LISPRO 300 UNITS/3 ML VIAL SQ SCH ×4 (07:55→22:00)
[2019-01-04] MEDS: Divalproex (12 HR) 500 MG TABLET PO SCH ×2 (07:56→21:59)
[2019-01-04 09:05] LABS: Basophils % 0.5 %; Eosinophils # 0.4 K/mcL (0.0-0.6); Eosinophils % 5.2 %; Hemoglobin 12.2 g/dL (12.9-16.9); Immature Granulocytes % 0.4 % (0-4); Lymphocytes # 2.9 K/mcL (0.6-4.6); Lymphocytes % 39.9 %; Mean Corpuscular Volume 91.1 fL (83.0-100.0); Mean Platelet Volume 11.2 fL (9.4-12.4); Monocytes # 0.8 K/mcL (0.0-1.3); Monocytes % 11.2 %; Neutrophils # 3.1 K/mcL (1.6-8.9); Platelet Count 169 K/mcL (140-400); Red Blood Count 4.06 M/mcL (4.19-5.50); Red Cell Distribution Width 12.1 % (11.5-14.5); Segmented Neutrophils % 42.8 %
[2019-01-04] MEDS ORDERED: Magnesium Oxide 400 MG TABLET PO ONE (11:18)
[2019-01-04] MEDS ORDERED: Isovue-370 500 ML BOTTLE IVP ONE (11:47)
--- NOTE | 2019-01-04 11:47 | AcuteCareSurgery Progress Note ---
<Alexa Smith - Last Filed: 01/04/19 11:43> Date of Encounter: 01/04/19 Time of Encounter: 07:45 - Assessment and Plan (1) Diverticulitis Current Visit: Yes Status: Acute Remains tender to light palpation. He states overall he feels similar to admission. His abd remains soft, nonperitoneal. WBC remains normal with ATBX and he is afebrile. Plan: clear liquid diet, no carbonation. Add Ensure Clear for protein continue IV antibiotics continue hospital cares per primary team Repeat CT Sunday with po and IV contrast to assess for progression ambulate TID out of bed to chair TID may shower Hood hose incentive spirometry trend labs (2) Bipolar disease, chronic Current Visit: Yes Status: Chronic Management per primary team. Patient is taking his home meds (3) Syncope and collapse Current Visit: Yes Status: Resolved Noted negative head and cervical spine CT's. Management per primary team Subjective Patient reports: no new complaints, still having pain, tolerating liquids well, voiding w/o difficulty, flatus, no bowel movement, afebrile Objective Vital Signs - Last 8 Hours Temp Pulse Resp BP Pulse Ox 01/04/19 10:31 98.4 F 51 14 139/74 95 01/04/19 07:26 16 93 01/04/19 07:17 98.5 F 52 12 124/72 93 Intake and Output 01/03/19 01/04/19 01/04/19 23:59 07:59 15:59 Intake Total 2220 / 3540 500 / 1080 580 / 1080 Output Total 900 / 2450 325 / 725 400 / 725 Balance 1320 / 1090 175 / 355 180 / 355 Intake: IV Fluids 1300 / 2380 300 / 400 100 / 400 0.9 % Sodium Chloride 1,000 ML 1000 / 1000 @ 75 mls/hr IVC .[id number] [facility] Rx #:[id number] Cipro Premix 400 MG/200 ML 400 200 / 400 200 / 200 mg In 200 ml @ 200 mls/hr IVPB Q12HR [facility] Rx#:[id number] Flagyl Premix 500 MG/100 ML 500 100 / 300 100 / 200 100 / 200 mg In 100 ml @ 100 mls/hr IVPB Q8HR [facility] Rx#:[id number] Oral 920 / 1160 200 / 680 480 / 680 Output: Urine 900 / 2450 325 / 725 400 / 725 Other: Meal Breakfast # Bowel Movements 0 Weight 100.2 kg Blood Glucose* 99 110 103 Patient Weight 01/04/19 23:59 Weight 100.2 kg - General physical appearance no distress - Eyes normal ocular movement - ENT atraumatic, normocephalic - Neck Neck exam: trachea midline - Respiratory normal expansion, normal respiratory effort, clear to auscultation - Cardiovascular Cardiovascular exam: Present: RRR - Abdomen Abdomen: Present: bowel sounds present, soft, tender, guarding Abdominal Tenderness: RLQ, LLQ - Integumentary no rash, no growths - Neurologic normal sensation - Musculoskeletal normal posture - Psychiatric oriented to time, oriented to person, oriented to place, speech is normal, m [place] intact - Labs 01/04/19 08:04 01/04/19 06:59 Diabetes panel 01/04/19 Range/Units 06:59 Sodium 139 (136-145) mEq/L Potassium 3.5 (3.5-5.1) mEq/L Chloride 107 (98-107) mEq/L Carbon Dioxide 25 (23-29) mEq/L BUN 7 (6-20) mg/dL Creatinine 0.76 (0.70-1.30) mg/dL Glucose 118 H (70-105) mg/dL Calcium 8.5 L (8.6-10.3) mg/dL Calcium panel 01/04/19 Range/Units 06:59 Calcium 8.5 L (8.6-10.3) mg/dL Phosphorus 3.8 (2.7-4.5) mg/dL Pituitary panel 01/04/19 Range/Units 06:59 Sodium 139 (136-145) mEq/L Potassium 3.5 (3.5-5.1) mEq/L Chloride 107 (98-107) mEq/L Carbon Dioxide 25 (23-29) mEq/L BUN 7 (6-20) mg/dL Creatinine 0.76 (0.70-1.30) mg/dL Glucose 118 H (70-105) mg/dL Calcium 8.5 L (8.6-10.3) mg/dL Adrenal panel 01/04/19 Range/Units 06:59 Sodium 139 (136-145) mEq/L Potassium 3.5 (3.5-5.1) mEq/L Chloride 107 (98-107) mEq/L Carbon Dioxide 25 (23-29) mEq/L BUN 7 (6-20) mg/dL Creatinine 0.76 (0.70-1.30) mg/dL Glucose 118 H (70-105) mg/dL Calcium 8.5 L (8.6-10.3) mg/dL Consult Discharge Plan - Plan Referrals: NONE,PCP [Primary Care Provider] - <Vianey Tracey F - Last Filed: 01/04/19 12:13> Date of Encounter: 01/04/19 Objective Vital Signs - Last 8 Hours Temp Pulse Resp BP Pulse Ox 01/04/19 10:31 98.4 F 51 14 139/74 95 01/04/19 07:26 16 93 01/04/19 07:17 98.5 F 52 12 124/72 93 Intake and Output 01/03/19 01/04/19 01/04/19 23:59 07:59 15:59 Intake Total 2220 / 3540 500 / 1080 580 / 1080 Output Total 900 / 2450 325 / 725 400 / 725 Balance 1320 / 1090 175 / 355 180 / 355 Intake: IV Fluids 1300 / 2380 300 / 400 100 / 400 0.9 % Sodium Chloride 1,000 ML 1000 / 1000 @ 75 mls/hr IVC .[id number] [facility] Rx #:[id number] Cipro Premix 400 MG/200 ML 400 200 / 400 200 / 200 mg In 200 ml @ 200 mls/hr IVPB Q12HR [facility] Rx#:[id number] Flagyl Premix 500 MG/100 ML 500 100 / 300 100 / 200 100 / 200 mg In 100 ml @ 100 mls/hr IVPB Q8HR [facility] Rx#:[id number] Oral 920 / 1160 200 / 680 480 / 680 Output: Urine 900 / 2450 325 / 725 400 / 725 Other: Meal Breakfast # Bowel Movements 0 Weight 100.2 kg Blood Glucose* 99 110 103 Patient Weight 01/04/19 23:59 Weight 100.2 kg - Labs 01/04/19 08:04 01/04/19 06:59 Diabetes panel 01/04/19 Range/Units 06:59 Sodium 139 (136-145) mEq/L Potassium 3.5 (3.5-5.1) mEq/L Chloride 107 (98-107) mEq/L Carbon Dioxide 25 (23-29) mEq/L BUN 7 (6-20) mg/dL Creatinine 0.76 (0.70-1.30) mg/dL Glucose 118 H (70-105) mg/dL Calcium 8.5 L (8.6-10.3) mg/dL Calcium panel 01/04/19 Range/Units 06:59 Calcium 8.5 L (8.6-10.3) mg/dL Phosphorus 3.8 (2.7-4.5) mg/dL Pituitary panel 01/04/19 Range/Units 06:59 Sodium 139 (136-145) mEq/L Potassium 3.5 (3.5-5.1) mEq/L Chloride 107 (98-107) mEq/L Carbon Dioxide 25 (23-29) mEq/L BUN 7 (6-20) mg/dL Creatinine 0.76 (0.70-1.30) mg/dL Glucose 118 H (70-105) mg/dL Calcium 8.5 L (8.6-10.3) mg/dL Adrenal panel 01/04/19 Range/Units 06:59 Sodium 139 (136-145) mEq/L Potassium 3.5 (3.5-5.1) mEq/L Chloride 107 (98-107) mEq/L Carbon Dioxide 25 (23-29) mEq/L BUN 7 (6-20) mg/dL Creatinine 0.76 (0.70-1.30) mg/dL Glucose 118 H (70-105) mg/dL Calcium 8.5 L (8.6-10.3) mg/dL - Attending Attestation I examined this patient and my medical decision-making was reviewed with the [employer] TECHNICIAN. I agree with the documented findings, disposition and treatment plan as described except to the extent set forth below.
[2019-01-04] MEDS: 0.9 % Sodium Chloride 1,000 ML IVC SCH (15:39)
[2019-01-04] MEDS: *HR* Promethazine 25 MG/ML VIAL IVP PRN (21:59)
[2019-01-05] MEDS: MetroNIDAZOLE 500 MG/100 ML 500 MG/100 ML BAG IVPB SCH ×3 (00:36→17:48)
[2019-01-05] MEDS: *HR* Heparin 5,000 UNIT/ML VIAL SQ SCH ×2 (05:53→18:40)
[2019-01-05 07:12] LABS: Basophils % 0.6 %; Eosinophils # 0.3 K/mcL (0.0-0.6); Eosinophils % 4.7 %; Hematocrit 38.8 % (37.5-50.1); Hemoglobin 12.7 g/dL (12.9-16.9); Immature Granulocytes % 0.4 % (0-4); Lymphocytes # 2.6 K/mcL (0.6-4.6); Lymphocytes % 38.6 %; Mean Corpuscular HGB Conc 32.7 g/dL (31.6-35.5); Mean Corpuscular Hemoglobin 29.8 pg (28.0-33.3); Mean Corpuscular Volume 91.1 fL (83.0-100.0); Mean Platelet Volume 11.3 fL (9.4-12.4); Monocytes # 0.8 K/mcL (0.0-1.3); Monocytes % 11.6 %; Platelet Count 172 K/mcL (140-400); Red Blood Count 4.26 M/mcL (4.19-5.50); Red Cell Distribution Width 12.2 % (11.5-14.5); Segmented Neutrophils % 44.1 %
--- NOTE | 2019-01-05 07:18 | Internal Med Progress Note ---
Hospitalist Progress Note - Encounter Date of Encounter: 01/05/19 Time of Encounter: 07:17 - Subjective Interval History: No acute events. Pain is better controlled. Still on clears and tolerating. - Exam Vitals: Temp Pulse Resp BP Pulse Ox 97.5 F L 51 15 144/82 93 01/05/19 06:35 01/05/19 06:35 01/05/19 06:35 01/05/19 06:35 01/05/19 06:35 Exam: ExGEN: NAD CVS: RRR. S1, S2, No m/r/g RESP: CTAB ABD: Soft, mild LLQ tenderness, ND, +BS EXT: No edema. 2+ DP. No rashes NEURO: Nonfocalm - Assessment and Plan (1) Diverticulitis Current Visit: Yes Status: Acute Assessment and Plan: Continue current IV Cipro and Flagyl. Surgery is following. Plans to repeat CT today per their note. Continue pain control and antiemetics. Continue IV fluids. Surgery to advance diet as they see fit. Discharge only when cleared by the surgery service (2) Pulmonary nodule Current Visit: Yes Status: Acute Assessment and Plan: incidental finding on CT abd/pelvis nodules reported on lower chest imaging clinically asymptomatic outpatient follow up with pulmonology on discharge (3) Bipolar disease, chronic Current Visit: Yes Status: Chronic Assessment and Plan: Continue home meds (4) DVT prophylaxis Current Visit: Yes Status: Acute Assessment and Plan: Heparin SQ - Time Spent with Patient Total time spent is greater than 50% in coordination of care (as documented) at patient's floor/unit and/or counseling patient: Internal Medicine: Result - Labs CBC & Chem 7: 01/05/19 07:01 01/05/19 07:01 Labs: Short CBC 01/04/19 01/05/19 Range/Units 08:04 07:01 WBC 7.3 6.7 (4.3-11.1) K/mcL Hgb 12.2 L 12.7 L (12.9-16.9) g/dL Hct 37.0 L 38.8 (37.5-50.1) % Plt Count 169 172 (140-400) K/mcL Neutrophils # 3.1 3.0 (1.6-8.9) K/mcL BMP 01/04/19 06:59 Sodium 139 Potassium 3.5 Chloride 107 Carbon Dioxide 25 BUN 7 Creatinine 0.76 Glucose 118 H Calcium 8.5 L - ABG Interpretation ABG results: PT/INR, D-dimer PT 11.1 Seconds (9.4-12.1) 01/03/19 03:42 Consult Discharge Plan - Plan Referrals: NONE,PCP [Primary Care Provider] -
[2019-01-05] MEDS: Insulin LISPRO 300 UNITS/3 ML VIAL SQ SCH ×4 (07:28→22:03)
[2019-01-05 07:32] LABS: BUN/Creatinine Ratio 6 (6-26); Blood Urea Nitrogen 5 mg/dL (6-20); Calcium 8.6 mg/dL (8.6-10.3); Carbon Dioxide 24 mEq/L (23-29); Chloride 107 mEq/L (98-107); Glucose 122 mg/dL (70-105); Magnesium 1.7 mg/dL (1.6-2.6); Osmolality,Calculated 291 (280-300); Potassium 3.7 mEq/L (3.5-5.1); Sodium 141 mEq/L (136-145); eGFR For Non-African Americans > 60 (> 60)
[2019-01-05] MEDS: Budesonide/Formoterol 160/4.5 1 PUFF INH IH SCH (07:43)
[2019-01-05] MEDS: Divalproex (12 HR) 500 MG TABLET PO SCH ×2 (07:52→20:29)
[2019-01-05] MEDS: 0.9 % Sodium Chloride 1,000 ML IVC SCH ×2 (07:52→10:48)
--- NOTE | 2019-01-05 08:58 | AcuteCareSurgery Progress Note ---
Date of Encounter: 01/05/19 Time of Encounter: 09:00 - Assessment and Plan (1) Diverticulitis Current Visit: Yes Status: Acute Pt doing well clinically. Repeat abd/pelvis CT reveals diverticulosis with no inflammation. Will advance diet today. Maintain IV abx. Probable DC tomorrow. (2) HTN (hypertension) Current Visit: Yes Status: Chronic Qualifiers: Hypertension type: essential hypertension Qualified Code(s): I10 - Essential (primary) hypertension Subjective Patient reports: no new complaints, feels better, still having pain, pain is less, tolerating liquids well Objective Vital Signs - Last 8 Hours Temp Pulse Resp BP Pulse Ox 01/05/19 07:45 18 92 01/05/19 06:35 97.5 F L 51 15 144/82 93 01/05/19 03:55 98.4 F 64 16 144/87 93 Intake and Output 01/04/19 01/05/19 01/05/19 23:59 07:59 15:59 Intake Total 980 / 3114 300 / 300 Output Total 1075 / 1800 1200 / 1650 450 / 1650 Balance -95 / 1314 -900 / -1350 -450 / -1350 Intake: IV Fluids 300 / 1754 300 / 300 Cipro Premix 400 MG/200 ML 400 200 / 400 200 / 200 mg In 200 ml @ 200 mls/hr IVPB Q12HR [facility] Rx#:[id number] Flagyl Premix 500 MG/100 ML 500 100 / 300 100 / 100 mg In 100 ml @ 100 mls/hr IVPB Q8HR [facility] Rx#:[id number] Oral 680 / 1360 Output: Urine 1075 / 1800 1200 / 1650 450 / 1650 Other: Meal clears Percent of Meal Consumed 0% Stool Size Moderate Stool Consistency liquid # Bowel Movements 0 Weight 100.5 kg Blood Glucose* 90 121 Patient Weight 01/05/19 23:59 Weight 100.5 kg - General physical appearance well developed, well nourished, no distress, moderate pain - ENT no congestion, dry mucosa - Neck Neck exam: no masses, no lymphadectomy, no venous distension - Respiratory normal respiratory effort, clear to auscultation - Cardiovascular Cardiovascular exam: Present: RRR. Absent: murmurs - Abdomen Abdomen: Present: bowel sounds present, soft, tender Abdominal Tenderness: LLQ - Integumentary no rash - Neurologic CN 2-12 grossly intact, normal coordination - Musculoskeletal normal gait, normal posture - Psychiatric oriented to time, oriented to person, oriented to place - Labs 01/05/19 07:01 01/05/19 07:01 Diabetes panel 01/05/19 Range/Units 07:01 Sodium 141 (136-145) mEq/L Potassium 3.7 (3.5-5.1) mEq/L Chloride 107 (98-107) mEq/L Carbon Dioxide 24 (23-29) mEq/L BUN 5 L (6-20) mg/dL Creatinine 0.79 (0.70-1.30) mg/dL Glucose 122 H (70-105) mg/dL Calcium 8.6 (8.6-10.3) mg/dL Calcium panel 01/05/19 Range/Units 07:01 Calcium 8.6 (8.6-10.3) mg/dL Pituitary panel 01/05/19 Range/Units 07:01 Sodium 141 (136-145) mEq/L Potassium 3.7 (3.5-5.1) mEq/L Chloride 107 (98-107) mEq/L Carbon Dioxide 24 (23-29) mEq/L BUN 5 L (6-20) mg/dL Creatinine 0.79 (0.70-1.30) mg/dL Glucose 122 H (70-105) mg/dL Calcium 8.6 (8.6-10.3) mg/dL Adrenal panel 01/05/19 Range/Units 07:01 Sodium 141 (136-145) mEq/L Potassium 3.7 (3.5-5.1) mEq/L Chloride 107 (98-107) mEq/L Carbon Dioxide 24 (23-29) mEq/L BUN 5 L (6-20) mg/dL Creatinine 0.79 (0.70-1.30) mg/dL Glucose 122 H (70-105) mg/dL Calcium 8.6 (8.6-10.3) mg/dL Consult Discharge Plan - Plan Referrals: NONE,PCP [Primary Care Provider] -
[2019-01-06] MEDS: MetroNIDAZOLE 500 MG/100 ML 500 MG/100 ML BAG IVPB SCH ×2 (00:24→09:28)
[2019-01-06] MEDS: Acetaminophen 325 MG TABLET PO PRN (01:09)
[2019-01-06] MEDS: *HR* Heparin 5,000 UNIT/ML VIAL SQ SCH (05:55)
[2019-01-06] MEDS: 0.9 % Sodium Chloride 1,000 ML IVC SCH (06:03)
[2019-01-06] MEDS: Budesonide/Formoterol 160/4.5 1 PUFF INH IH SCH (07:41)
--- NOTE | 2019-01-06 08:45 | Event Note ---
Date of Encounter: 01/06/19 Time of Encounter: 08:44 Pt tolerating diet. States pain is improved. OK to d/c from a surgical perspective. Follow up scheduled with Dr. Godfrey as per d/c plan.
[2019-01-06] MEDS: Divalproex (12 HR) 500 MG TABLET PO SCH (09:28)
[2019-01-06] MEDS: Insulin LISPRO 300 UNITS/3 ML VIAL SQ SCH ×2 (09:29→12:50)
[2019-01-06 10:36] VITALS: BP 143/78
--- NOTE | 2019-01-06 11:15 | Discharge Summary ---
- NOTES TO OUTPATIENT PROVIDER Notes to Outpatient Provider: Treated for acute diverticulitis. Imaging showed 8 mm noncalcified left lower lobe pulm nodule. Needs follow up with imaging in 6-12 months Orders not resulted at time of discharge: Pending orders 01/01/19 23:16 Culture,Blood [BC] Stat Date of Encounter: 01/06/19 Time of Encounter: 11:12 - Discharge Diagnosis (1) Diverticulitis Priority: Primary Status: Acute (2) Pulmonary nodule Priority: Primary Status: Acute (3) Bipolar disease, chronic Priority: Secondary Status: Chronic Hospital course: Mr. Stevens is a 53 year old male who presented to the ER tonight with complaints of intense abdominal pain, nausea, vomiting, and subjective fever. He had colonoscopy with polypectomy performed roughly 36 hours prior to his ER presentation. Workup in ER revealed patient to have evidence of diverticulitis on CT imaging. He was subsequently admitted to hospitalist service for further workup and care. Was seen by surgery and continued conservative measures. Was put on IV cipro/flagyl and discharged to finish 5 more days of oral cipro/flagyl. Was tolerating diabetic diet at d/c. Needs to have a CT chest in 6-12 months for follow up on an 8 mm nodule noted in left lower lobe on CT imaging. Discharged on 01/06/19. - Time Spent with Patient Total time spent providing and/or coordinating discharge services: - Discharge Medications Prescriptions: New Ciprofloxacin [Cipro] 500 mg PO BID 5 Days #10 tablet metroNIDAZOLE [Flagyl] 500 mg PO TID 5 Days #15 tablet Continued Propranolol HCl 40 mg PO BID Simvastatin [Zocor] 40 mg PO HS metFORMIN [Glucophage] 500 mg PO BIDWM Lisinopril [Zestril] 10 mg PO DAILY Divalproex (24 HR) [Depakote ER (24 HR)] 1,000 mg PO HS Albuterol Sulfate [Albuterol Inhaler] 2 puff PO Q6H PRN PRN Reason: Shortness Of Breath Divalproex (24 HR) [Depakote ER (24 HR)] 500 mg PO QAM Omeprazole [PriLOSEC] 40 mg PO DAILY Quetiapine Fumarate [Seroquel] 200 mg PO HS Sertraline [Zoloft] 100 mg PO DAILY No Action Budesonide/Formoterol 160/4.5 [Symbicort 160/4.5] 2 puff IH DAILY Home Medications: Budesonide/Formoterol 160/4.5 [Symbicort 160/4.5] 2 puff IH DAILY 04/23/18 [History] Lisinopril [Zestril] 10 mg PO DAILY 04/23/18 [History] Propranolol HCl 40 mg PO BID 04/23/18 [History] Simvastatin [Zocor] 40 mg PO HS 04/23/18 [History] metFORMIN [Glucophage] 500 mg PO BIDWM 04/23/18 [History] Divalproex (24 HR) [Depakote ER (24 HR)] 1,000 mg PO HS 01/02/19 [History] Albuterol Sulfate [Albuterol Inhaler] 2 puff PO Q6H PRN 01/03/19 [History] Divalproex (24 HR) [Depakote ER (24 HR)] 500 mg PO QAM 01/03/19 [History] Omeprazole [PriLOSEC] 40 mg PO DAILY 01/03/19 [History] Quetiapine Fumarate [Seroquel] 200 mg PO HS 01/03/19 [History] Sertraline [Zoloft] 100 mg PO DAILY 01/03/19 [History] Ciprofloxacin [Cipro] 500 mg PO BID 5 Days #10 tablet 01/06/19 [Rx] metroNIDAZOLE [Flagyl] 500 mg PO TID 5 Days #15 tablet 01/06/19 [Rx] Allergies/Adverse Reactions: Allergy/AdvReac Type Severity Reaction Status Date / Time azithromycin Allergy Hives Verified 01/03/19 18:07 [From Zithromax Z-Efraín] Darvocet Allergy Rash Uncoded 01/03/19 18:07 Date of admission: 01/02/19 05:43 Primary care physician: PCP NONE Consults: 01/02/19 05:48 Consult to Physician [CONS] Routine Consulting Provider: Noy Godfrey Reason for Consult: diverticulitis after colonscopy Call Completed: No - Constitutional Vitals: Temp Pulse Resp BP Pulse Ox 97.8 F 65 14 143/78 94 01/06/19 10:34 01/06/19 10:34 01/06/19 10:34 01/06/19 10:34 01/06/19 10:34 General appearance: Present: cooperative, mild distress, A&O X 3, pleasant, answers questions appropriately Exam: GEN: NAD CVS: RRR. S1, S2, No m/r/g RESP: CTAB ABD: Soft, Notenderness, ND, +BS EXT: No edema. 2+ DP. No rashes NEURO: Nonfocalm - Patient Status Disposition: Home, Self-Care Condition: Good - Discharge Instructions Instructions: Diverticulitis Diet (GEN) Follow Up With: Noy Godfrey MD [Partnered Physician] - 01/15/19 11:00 am NONE,PCP [Primary Care Provider] - (1 week) Additional Instructions: Take Miralax daily until you are having daily bowel movements that are mashed potatoes consistency and not painful. Then decrease to every other day until BMs continue as previously described. Follow-up as directed. - Diet and Activity Activity: increase activity as tolerated Diet: diabetic diet
== END 2019-01-06 16:00 | disposition home or self-care (01) | DRG 392 ==
LOC: 3ANU 22:32 → EMEROOARM 22:32 → 3ANU 01-02 02:29 → SUATTDRO 01-02 05:43
PROVIDERS: ADMIT Family Medicine; ATTEND Internal Medicine

== ENCOUNTER 2019-02-10 10:51 | Inpatient (IN) ==
[2019-02-10] MEDS ORDERED: Albuterol 2.5 MG/3 ML NEBULIZER IH ONE (12:07)
[2019-02-10] MEDS ORDERED: cefOXitin 2,000 MG in Water for inj. (sterile) 20 ML IVP ONE (12:09)
[2019-02-10] MEDS: Ringers Solution, Lactated 1,000 ML IVC SCH ×2 (12:23→14:16)
[2019-02-10] MEDS ORDERED: *HR* OxyCODONE Immed Rel 5 MG TABLET PO PRN (12:34)
[2019-02-10] MEDS ORDERED: *HR* HYDROmorphone (PF) 1 MG/ML SYRINGE IVP PRN (12:34)
[2019-02-10] MEDS ORDERED: Ondansetron 4 MG/2 ML VIAL IVP ONE (12:34)
[2019-02-10] MEDS ORDERED: *HR* Promethazine 25 MG/ML VIAL IVP PRN ×2 (12:34→20:02)
[2019-02-10] MEDS ORDERED: Celecoxib 200 MG CAPSULE PO ONE (12:35)
[2019-02-10] MEDS ORDERED: Gabapentin 300 MG CAPSULE PO ONE (12:35)
[2019-02-10] MEDS ORDERED: *HR* Propofol 200 MG/20 ML VIAL IVP ONE (12:57)
[2019-02-10] MEDS ORDERED: Ondansetron 4 MG/2 ML VIAL ONE (12:57)
[2019-02-10] MEDS ORDERED: Dexamethasone 4 MG/ML VIAL ONE (12:57)
[2019-02-10] MEDS ORDERED: *HR* Rocuronium Bromide 50 MG/5 ML VIAL ONE ×3 (12:58→16:41)
[2019-02-10] MEDS ORDERED: *HR* FentaNYL (PF) 100 MCG/2 ML VIAL ONE ×3 (12:58→18:03)
[2019-02-10] MEDS ORDERED: Neostigmine Methylsulfate 3 MG/3 ML SYRINGE ONE (12:59)
[2019-02-10] MEDS ORDERED: Lidocaine -MPF 2% 2 ML VIAL ONE (13:00)
[2019-02-10] MEDS ORDERED: Acetaminophen IV 1,000 MG/100 ML INFUS..BTL ONE (13:34)
[2019-02-10] MEDS ORDERED: *HR* Midazolam HCl 2 MG/2 ML VIAL ONE (13:37)
[2019-02-10] MEDS ORDERED: *HR* PHENYLEPHRINE 1,000 MCG/10 ML SYRINGE IVP ONE (14:48)
[2019-02-10] MEDS ORDERED: Acetaminophen IV 1,000 MG/100 ML INFUS..BTL IVPB ONE ×2 (15:00→20:02)
[2019-02-10] MEDS ORDERED: *HR* HYDROMORPHONE 2 MG/ML VIAL ONE (17:56)
[2019-02-10] MEDS ORDERED: *HR* Metoprolol 5 MG/5 ML VIAL IVP PRN (20:02)
[2019-02-10] MEDS ORDERED: Naloxone 0.4 MG/ML INJ IVP PRN ×2 (20:02)
[2019-02-10] MEDS ORDERED: Dextrose Gel 15 GM/37.5 ML TUBE PO PRN ×2 (20:02)
[2019-02-10] MEDS ORDERED: *HR* Dextrose 50 % in Water (Syg) 50 ML SYRINGE IVP PRN (20:02)
[2019-02-10] MEDS ORDERED: D5% in Water 1,000 ML IVC PRN (20:02)
[2019-02-10] MEDS ORDERED: Ondansetron 4 MG/2 ML VIAL IVP PRN (20:02)
[2019-02-10] MEDS: 0.9 % Sodium Chloride 1,000 ML IVC SCH (20:44)
[2019-02-10] MEDS: Ipratropium/Albuterol Neb 3 ML IH SCH (21:48)
[2019-02-10] MEDS: Morphine PCA 30 MG/ 30 ML 30 ML PCA.VIAL IVC PRN (22:23)
[2019-02-10] MEDS: Insulin LISPRO 300 UNITS/3 ML VIAL SQ SCH (23:34)
[2019-02-10] MEDS: cefOXitin 2,000 MG in Water for inj. (sterile) 20 ML IVP SCH (23:35)
[2019-02-11] MEDS: Ipratropium/Albuterol Neb 3 ML IH SCH ×4 (04:20→22:46)
[2019-02-11] MEDS: Insulin LISPRO 300 UNITS/3 ML VIAL SQ SCH ×3 (05:17→18:01)
[2019-02-11] MEDS: 0.9 % Sodium Chloride 1,000 ML IVC SCH ×3 (06:05→23:40)
[2019-02-11] MEDS: Morphine PCA 30 MG/ 30 ML 30 ML PCA.VIAL IVC PRN ×2 (08:09→15:39)
[2019-02-11] MEDS: Pantoprazole 40 MG VIAL IVP SCH (08:15)
[2019-02-11] MEDS: cefOXitin 2,000 MG in Water for inj. (sterile) 20 ML IVP SCH ×2 (08:15→16:02)
[2019-02-11 08:23] LABS: Basophils % 0.2 %; Eosinophils % 0.1 %; Hematocrit 38.7 % (37.5-50.1); Hemoglobin 13.2 g/dL (12.9-16.9); Lymphocytes # 1.7 K/mcL (0.6-4.6); Lymphocytes % 11.1 %; Mean Corpuscular HGB Conc 34.1 g/dL (31.6-35.5); Mean Corpuscular Hemoglobin 30.2 pg (28.0-33.3); Mean Corpuscular Volume 88.6 fL (83.0-100.0); Monocytes # 2.1 K/mcL (0.0-1.3); Monocytes % 13.9 %; Neutrophils # 11.3 K/mcL (1.6-8.9); Platelet Count 206 K/mcL (140-400); Red Blood Count 4.37 M/mcL (4.19-5.50); Red Cell Distribution Width 12.4 % (11.5-14.5); Segmented Neutrophils % 73.7 %; White Blood Count 15.3 K/mcL (4.3-11.1)
[2019-02-11 08:25] LABS: BUN/Creatinine Ratio 15 (6-26); Blood Urea Nitrogen 17 mg/dL (6-20); Calcium 7.6 mg/dL (8.6-10.3); Carbon Dioxide 23 mEq/L (23-29); Chloride 104 mEq/L (98-107); Glucose 135 mg/dL (70-105); Magnesium 1.5 mg/dL (1.6-2.6); Osmolality,Calculated 284 (280-300); Phosphorous 5.3 mg/dL (2.7-4.5); Potassium 5.2 mEq/L (3.5-5.1); Sodium 135 mEq/L (136-145); eGFR For African Americans > 60 (> 60); eGFR For Non-African Americans > 60 (> 60)
[2019-02-11] MEDS ORDERED: *HR* LORazepam 2 MG/ML VIAL IVP ONE (08:44)
[2019-02-11] MEDS: Valproic Acid INJ 500 MG in 0.9 % Sodium Chloride 100 ML IVPB SCH ×3 (10:26→23:41)
[2019-02-11] MEDS ORDERED: *HR* LORazepam 2 MG/ML VIAL IVP PRN (15:34)
[2019-02-11] MEDS: Acetaminophen IV 1,000 MG/100 ML INFUS..BTL IVPB SCH ×2 (15:46→21:35)
[2019-02-11] MEDS: *HR* Metoprolol 5 MG/5 ML VIAL IVP SCH (18:57)
[2019-02-11] MEDS: *HR* Heparin 5,000 UNIT/ML VIAL SQ SCH (21:42)
[2019-02-12] MEDS: Morphine PCA 30 MG/ 30 ML 30 ML PCA.VIAL IVC PRN (00:41)
[2019-02-12] MEDS: cefOXitin 2,000 MG in Water for inj. (sterile) 20 ML IVP SCH ×3 (00:49→17:09)
[2019-02-12] MEDS: *HR* Metoprolol 5 MG/5 ML VIAL IVP SCH ×4 (00:50→20:10)
[2019-02-12] MEDS: Insulin LISPRO 300 UNITS/3 ML VIAL SQ SCH ×4 (01:05→20:10)
[2019-02-12] MEDS: Acetaminophen IV 1,000 MG/100 ML INFUS..BTL IVPB SCH ×3 (03:39→17:08)
[2019-02-12] MEDS: Ipratropium/Albuterol Neb 3 ML IH SCH ×4 (03:49→22:49)
[2019-02-12 06:04] LABS: Basophils # 0.1 K/mcL (0.0-0.2); Basophils % 0.3 %; Eosinophils # 0.1 K/mcL (0.0-0.6); Eosinophils % 0.7 %; Hematocrit 34.6 % (37.5-50.1); Immature Granulocytes % 0.5 % (0-4); Lymphocytes # 2.3 K/mcL (0.6-4.6); Lymphocytes % 14.7 %; Mean Corpuscular HGB Conc 31.8 g/dL (31.6-35.5); Mean Corpuscular Hemoglobin 29.8 pg (28.0-33.3); Mean Corpuscular Volume 93.8 fL (83.0-100.0); Mean Platelet Volume 10.6 fL (9.4-12.4); Monocytes # 2.4 K/mcL (0.0-1.3); Monocytes % 15.6 %; Neutrophils # 10.5 K/mcL (1.6-8.9); Platelet Count 190 K/mcL (140-400); Red Blood Count 3.69 M/mcL (4.19-5.50); Red Cell Distribution Width 12.7 % (11.5-14.5); Segmented Neutrophils % 68.2 %; White Blood Count 15.3 K/mcL (4.3-11.1)
[2019-02-12 06:13] LABS: VBG Ionized Calcium 1.06 mmol/L (1.15-1.35)
[2019-02-12 06:19] LABS: Albumin 3.4 g/dL (3.5-5.7); BUN/Creatinine Ratio 11 (6-26); Blood Urea Nitrogen 10 mg/dL (6-20); Carbon Dioxide 23 mEq/L (23-29); Chloride 105 mEq/L (98-107); Glucose 156 mg/dL (70-105); Magnesium 1.8 mg/dL (1.6-2.6); Osmolality,Calculated 288 (280-300); Phosphorous 2.3 mg/dL (2.7-4.5); Potassium 4.4 mEq/L (3.5-5.1); Sodium 138 mEq/L (136-145); eGFR For African Americans > 60 (> 60); eGFR For Non-African Americans > 60 (> 60)
[2019-02-12] MEDS ORDERED: 0.9 % Sodium Chloride 1,000 ML IVC SCH (07:54)
[2019-02-12] MEDS: Pantoprazole 40 MG VIAL IVP SCH (08:04)
[2019-02-12] MEDS: *HR* Heparin 5,000 UNIT/ML VIAL SQ SCH ×2 (08:04→14:48)
[2019-02-12] MEDS: 0.9 % Sodium Chloride 1,000 ML IVC SCH ×2 (08:25→10:25)
[2019-02-12] MEDS ORDERED: Calcium Gluconate 1gm/50mL 1 GM/50 ML BAG IVPB ONE (08:42)
[2019-02-12] MEDS ORDERED: Lidocaine -MPF 1% 5 ML AMPUL INFILT ONE (09:10)
[2019-02-12] MEDS: Valproic Acid INJ 500 MG in 0.9 % Sodium Chloride 100 ML IVPB SCH ×2 (09:40→19:08)
[2019-02-12] MEDS ORDERED: D10% in Water 500 ML IVC PRN (11:04)
[2019-02-12] MEDS ORDERED: *HR* FentaNYL (PF) 100 MCG/2 ML VIAL IVP PRN (12:39)
[2019-02-12] MEDS ORDERED: Haloperidol Lactate 5 MG/ML VIAL IVP STA (12:51)
[2019-02-12] MEDS: Acetylcysteine 10% 2 ML INHSOL IH SCH (15:39)
[2019-02-12] MEDS ORDERED: Clinimix E 5%-15% SOLUTION 2,000 ML with MVI, adult with vitamin K 10 ML IVC SCH (17:00)
[2019-02-12] MEDS ORDERED: Haloperidol Lactate 5 MG/ML VIAL IVP SCH (17:00)
[2019-02-12] MEDS ORDERED: Haloperidol Lactate 5 MG/ML VIAL IVP PRN (17:17)
[2019-02-13] MEDS: Acetaminophen IV 1,000 MG/100 ML INFUS..BTL IVPB SCH ×5 (00:10→20:48)
[2019-02-13] MEDS: *HR* Heparin 5,000 UNIT/ML VIAL SQ SCH ×4 (00:57→22:26)
[2019-02-13] MEDS: Insulin LISPRO 300 UNITS/3 ML VIAL SQ SCH ×5 (01:00→23:40)
[2019-02-13] MEDS: *HR* Metoprolol 5 MG/5 ML VIAL IVP SCH ×5 (01:00→23:40)
[2019-02-13] MEDS: 0.9 % Sodium Chloride 1,000 ML IVC SCH ×2 (01:05→09:55)
[2019-02-13] MEDS: Valproic Acid INJ 500 MG in 0.9 % Sodium Chloride 100 ML IVPB SCH ×3 (01:17→18:21)
[2019-02-13] MEDS: cefOXitin 2,000 MG in Water for inj. (sterile) 20 ML IVP SCH (01:19)
[2019-02-13] MEDS: Ipratropium/Albuterol Neb 3 ML IH SCH ×4 (04:36→22:34)
[2019-02-13 04:57] LABS: Basophils % 0.3 %; Eosinophils # 0.3 K/mcL (0.0-0.6); Eosinophils % 2.7 %; Hematocrit 31.2 % (37.5-50.1); Immature Granulocytes % 0.6 % (0-4); Lymphocytes # 2.1 K/mcL (0.6-4.6); Lymphocytes % 20.1 %; Mean Corpuscular HGB Conc 32.1 g/dL (31.6-35.5); Mean Corpuscular Hemoglobin 30.2 pg (28.0-33.3); Mean Corpuscular Volume 94.3 fL (83.0-100.0); Mean Platelet Volume 10.5 fL (9.4-12.4); Monocytes # 1.6 K/mcL (0.0-1.3); Monocytes % 15.1 %; Neutrophils # 6.5 K/mcL (1.6-8.9); Platelet Count 161 K/mcL (140-400); Red Blood Count 3.31 M/mcL (4.19-5.50); Red Cell Distribution Width 12.7 % (11.5-14.5); Segmented Neutrophils % 61.2 %; White Blood Count 10.6 K/mcL (4.3-11.1)
[2019-02-13 05:17] LABS: BUN/Creatinine Ratio 7 (6-26); Blood Urea Nitrogen 5 mg/dL (6-20); Calcium 8.1 mg/dL (8.6-10.3); Carbon Dioxide 25 mEq/L (23-29); Chloride 108 mEq/L (98-107); Glucose 148 mg/dL (70-105); Magnesium 1.7 mg/dL (1.6-2.6); Osmolality,Calculated 290 (280-300); Phosphorous 2.4 mg/dL (2.7-4.5); Potassium 3.9 mEq/L (3.5-5.1); Sodium 140 mEq/L (136-145); eGFR For African Americans > 60 (> 60); eGFR For Non-African Americans > 60 (> 60)
[2019-02-13] MEDS: Morphine PCA 30 MG/ 30 ML 30 ML PCA.VIAL IVC PRN ×2 (07:09→20:36)
[2019-02-13] MEDS: Pantoprazole 40 MG VIAL IVP SCH (09:56)
[2019-02-13] MEDS: Acetylcysteine 10% 2 ML INHSOL IH SCH (10:57)
[2019-02-13] MEDS ORDERED: Clinimix E 5%-15% SOLUTION 2,000 ML with MVI, adult with vitamin K 10 ML IVC SCH (17:00)
[2019-02-14] MEDS: Valproic Acid INJ 500 MG in 0.9 % Sodium Chloride 100 ML IVPB SCH ×4 (01:25→22:56)
[2019-02-14] MEDS: Acetaminophen IV 1,000 MG/100 ML INFUS..BTL IVPB SCH ×2 (02:13→09:41)
[2019-02-14] MEDS: Insulin LISPRO 300 UNITS/3 ML VIAL SQ SCH ×6 (03:33→22:53)
[2019-02-14] MEDS: Ipratropium/Albuterol Neb 3 ML IH SCH ×4 (03:51→22:22)
[2019-02-14 04:14] LABS: Basophils % 0.4 %; Eosinophils # 0.6 K/mcL (0.0-0.6); Eosinophils % 6.3 %; Hematocrit 32.7 % (37.5-50.1); Hemoglobin 10.7 g/dL (12.9-16.9); Immature Granulocytes % 0.4 % (0-4); Lymphocytes # 2.4 K/mcL (0.6-4.6); Lymphocytes % 24.4 %; Mean Corpuscular HGB Conc 32.7 g/dL (31.6-35.5); Mean Corpuscular Volume 91.6 fL (83.0-100.0); Mean Platelet Volume 10.6 fL (9.4-12.4); Monocytes # 1.3 K/mcL (0.0-1.3); Monocytes % 12.9 %; Neutrophils # 5.5 K/mcL (1.6-8.9); Platelet Count 179 K/mcL (140-400); Red Blood Count 3.57 M/mcL (4.19-5.50); Red Cell Distribution Width 12.4 % (11.5-14.5); Segmented Neutrophils % 55.6 %; White Blood Count 9.9 K/mcL (4.3-11.1)
[2019-02-14 04:23] LABS: BUN/Creatinine Ratio 9 (6-26); Blood Urea Nitrogen 6 mg/dL (6-20); Carbon Dioxide 27 mEq/L (23-29); Chloride 104 mEq/L (98-107); Potassium 3.6 mEq/L (3.5-5.1); Sodium 141 mEq/L (136-145)
[2019-02-14 04:24] LABS: Calcium 8.5 mg/dL (8.6-10.3); Glucose 123 mg/dL (70-105); Magnesium 1.5 mg/dL (1.6-2.6); Osmolality,Calculated 291 (280-300); Phosphorous 3.4 mg/dL (2.7-4.5); eGFR For African Americans > 60 (> 60); eGFR For Non-African Americans > 60 (> 60)
[2019-02-14] MEDS: *HR* Heparin 5,000 UNIT/ML VIAL SQ SCH ×3 (05:35→22:45)
[2019-02-14] MEDS: *HR* Metoprolol 5 MG/5 ML VIAL IVP SCH (05:35)
[2019-02-14] MEDS: Morphine PCA 30 MG/ 30 ML 30 ML PCA.VIAL IVC PRN (07:58)
[2019-02-14] MEDS: Pantoprazole 40 MG VIAL IVP SCH (09:43)
[2019-02-14] MEDS: Acetylcysteine 10% 2 ML INHSOL IH SCH (10:51)
[2019-02-14] MEDS: *HR* OxyCODONE/APAP 5/325 TABLET PO PRN (11:49)
[2019-02-14] MEDS: 0.9 % Sodium Chloride 1,000 ML IVC SCH (12:11)
[2019-02-14] MEDS ORDERED: Clinimix E 5%-15% SOLUTION 2,000 ML with MVI, adult with vitamin K 10 ML IVC SCH (17:00)
[2019-02-14] MEDS ORDERED: Lurasidone 20 MG TABLET PO SCH (18:00)
[2019-02-14] MEDS: Lurasidone 20 MG TABLET PO SCH (20:41)
[2019-02-15] MEDS: *HR* OxyCODONE/APAP 5/325 TABLET PO PRN (00:29)
[2019-02-15] MEDS: 0.9 % Sodium Chloride 1,000 ML IVC SCH (00:30)
[2019-02-15] MEDS: Insulin LISPRO 300 UNITS/3 ML VIAL SQ SCH ×5 (03:51→20:54)
[2019-02-15 04:18] LABS: Basophils % 0.3 %; Eosinophils # 0.5 K/mcL (0.0-0.6); Eosinophils % 4.7 %; Hematocrit 32.6 % (37.5-50.1); Hemoglobin 10.7 g/dL (12.9-16.9); Immature Granulocytes % 0.8 % (0-4); Lymphocytes # 2.1 K/mcL (0.6-4.6); Lymphocytes % 18.3 %; Mean Corpuscular HGB Conc 32.8 g/dL (31.6-35.5); Mean Corpuscular Hemoglobin 29.6 pg (28.0-33.3); Mean Corpuscular Volume 90.1 fL (83.0-100.0); Mean Platelet Volume 10.3 fL (9.4-12.4); Monocytes # 1.6 K/mcL (0.0-1.3); Monocytes % 14.4 %; Platelet Count 233 K/mcL (140-400); Red Blood Count 3.62 M/mcL (4.19-5.50); Red Cell Distribution Width 12.5 % (11.5-14.5); Segmented Neutrophils % 61.5 %; White Blood Count 11.3 K/mcL (4.3-11.1)
[2019-02-15] MEDS: Ipratropium/Albuterol Neb 3 ML IH SCH ×4 (04:30→22:02)
[2019-02-15 04:37] LABS: BUN/Creatinine Ratio 13 (6-26); Blood Urea Nitrogen 9 mg/dL (6-20); Calcium 8.9 mg/dL (8.6-10.3); Carbon Dioxide 29 mEq/L (23-29); Chloride 102 mEq/L (98-107); Glucose 159 mg/dL (70-105); Magnesium 1.6 mg/dL (1.6-2.6); Osmolality,Calculated 290 (280-300); Phosphorous 3.9 mg/dL (2.7-4.5); Sodium 139 mEq/L (136-145); eGFR For African Americans > 60 (> 60); eGFR For Non-African Americans > 60 (> 60)
[2019-02-15] MEDS: *HR* Heparin 5,000 UNIT/ML VIAL SQ SCH ×3 (05:30→21:45)
[2019-02-15] MEDS: Pantoprazole 40 MG VIAL IVP SCH (08:36)
[2019-02-15] MEDS: Valproic Acid INJ 500 MG in 0.9 % Sodium Chloride 100 ML IVPB SCH ×2 (08:48→17:10)
[2019-02-15] MEDS: Acetylcysteine 10% 2 ML INHSOL IH SCH (11:16)
[2019-02-15] MEDS ORDERED: Clinimix E 5%-15% SOLUTION 2,000 ML with MVI, adult with vitamin K 10 ML IVC SCH (17:00)
[2019-02-15] MEDS: Lurasidone 20 MG TABLET PO SCH (17:12)
[2019-02-16] MEDS: Valproic Acid INJ 500 MG in 0.9 % Sodium Chloride 100 ML IVPB SCH ×3 (00:01→16:47)
[2019-02-16] MEDS: Insulin LISPRO 300 UNITS/3 ML VIAL SQ SCH ×6 (00:07→21:06)
[2019-02-16] MEDS: Ipratropium/Albuterol Neb 3 ML IH SCH ×4 (03:37→20:56)
[2019-02-16] MEDS: *HR* Heparin 5,000 UNIT/ML VIAL SQ SCH ×3 (05:31→21:06)
[2019-02-16] MEDS: 0.9 % Sodium Chloride 1,000 ML IVC SCH ×2 (07:34→09:03)
[2019-02-16 08:03] LABS: Bilirubin,Urine Negative (Negative); Blood,Urine Large (Negative); Clarity,Urine Cloudy (Clear); Color,Urine Yellow (Yellow); Glucose,Urine (UA) Normal (Normal); Ketones,Urine Negative (Negative); Leukocyte Esterase,Urine Negative (Negative); Nitrite,Urine Negative (Negative); Protein,Urine 100 mg/dL (Neg-Trace); Specific Gravity,Urine 1.017 (1.010-1.025); Urobilinogen,Urine Normal (Normal)
[2019-02-16 08:06] LABS: Bacteria,Urine None Seen per hpf (None-Few); Hyaline Casts,Urine None Seen per lpf (None-Few); RBC,Urine TNTC per hpf (0-3); Squamous Epithelial Cell,Urine Many per lpf (None-Few)
[2019-02-16] MEDS: Pantoprazole 40 MG VIAL IVP SCH (09:05)
[2019-02-16 12:27] LABS: Basophils # 0.1 K/mcL (0.0-0.2); Basophils % 0.8 %; Eosinophils # 0.6 K/mcL (0.0-0.6); Eosinophils % 5.7 %; Hematocrit 35.1 % (37.5-50.1); Hemoglobin 11.5 g/dL (12.9-16.9); Immature Granulocytes % 3.5 % (0-4); Lymphocytes # 2.5 K/mcL (0.6-4.6); Lymphocytes % 23.7 %; Mean Corpuscular HGB Conc 32.8 g/dL (31.6-35.5); Mean Platelet Volume 9.7 fL (9.4-12.4); Monocytes # 1.8 K/mcL (0.0-1.3); Monocytes % 16.4 %; Neutrophils # 5.3 K/mcL (1.6-8.9); Platelet Count 278 K/mcL (140-400); Red Blood Count 3.83 M/mcL (4.19-5.50); Red Cell Distribution Width 12.6 % (11.5-14.5); Segmented Neutrophils % 49.9 %; White Blood Count 10.7 K/mcL (4.3-11.1)
[2019-02-16 12:32] LABS: Mean Corpuscular Volume 91.6 fL (83.0-100.0)
[2019-02-16 12:45] LABS: BUN/Creatinine Ratio 21 (6-26); Blood Urea Nitrogen 16 mg/dL (6-20); Calcium 8.9 mg/dL (8.6-10.3); Carbon Dioxide 29 mEq/L (23-29); Chloride 102 mEq/L (98-107); Glucose 121 mg/dL (70-105); Magnesium 1.7 mg/dL (1.6-2.6); Osmolality,Calculated 290 (280-300); Phosphorous 3.8 mg/dL (2.7-4.5); Potassium 4.3 mEq/L (3.5-5.1); Sodium 139 mEq/L (136-145); eGFR For African Americans > 60 (> 60); eGFR For Non-African Americans > 60 (> 60)
[2019-02-16] MEDS: Lurasidone 20 MG TABLET PO SCH (16:44)
[2019-02-16] MEDS ORDERED: Clinimix E 5%-15% SOLUTION 2,000 ML with MVI, adult with vitamin K 10 ML IVC SCH (17:00)
[2019-02-16] MEDS: QUEtiapine Fumarate 100 MG TABLET PO SCH (21:06)
[2019-02-17] MEDS: Insulin LISPRO 300 UNITS/3 ML VIAL SQ SCH ×7 (00:05→23:57)
[2019-02-17] MEDS: Valproic Acid INJ 500 MG in 0.9 % Sodium Chloride 100 ML IVPB SCH ×2 (00:06→09:50)
[2019-02-17] MEDS: Ipratropium/Albuterol Neb 3 ML IH SCH ×4 (03:40→23:18)
[2019-02-17 04:49] LABS: Basophils # 0.1 K/mcL (0.0-0.2); Basophils % 0.6 %; Eosinophils # 0.5 K/mcL (0.0-0.6); Hematocrit 31.5 % (37.5-50.1); Hemoglobin 10.3 g/dL (12.9-16.9); Immature Granulocytes % 3.9 % (0-4); Lymphocytes # 3.1 K/mcL (0.6-4.6); Lymphocytes % 32.1 %; Mean Corpuscular HGB Conc 32.7 g/dL (31.6-35.5); Mean Corpuscular Hemoglobin 29.6 pg (28.0-33.3); Mean Corpuscular Volume 90.5 fL (83.0-100.0); Mean Platelet Volume 9.9 fL (9.4-12.4); Monocytes # 1.5 K/mcL (0.0-1.3); Monocytes % 15.4 %; Neutrophils # 4.2 K/mcL (1.6-8.9); Platelet Count 238 K/mcL (140-400); Red Blood Count 3.48 M/mcL (4.19-5.50); Red Cell Distribution Width 12.7 % (11.5-14.5); White Blood Count 9.7 K/mcL (4.3-11.1)
[2019-02-17 05:04] LABS: BUN/Creatinine Ratio 24 (6-26); Blood Urea Nitrogen 18 mg/dL (6-20); Calcium 8.4 mg/dL (8.6-10.3); Carbon Dioxide 27 mEq/L (23-29); Chloride 102 mEq/L (98-107); Glucose 157 mg/dL (70-105); Magnesium 1.9 mg/dL (1.6-2.6); Osmolality,Calculated 303 (280-300); Phosphorous 4.3 mg/dL (2.7-4.5); Potassium 3.3 mEq/L (3.5-5.1); Sodium 144 mEq/L (136-145); eGFR For African Americans > 60 (> 60); eGFR For Non-African Americans > 60 (> 60)
[2019-02-17] MEDS: *HR* Heparin 5,000 UNIT/ML VIAL SQ SCH ×3 (05:34→21:36)
[2019-02-17] MEDS: Pantoprazole 40 MG VIAL IVP SCH (09:50)
[2019-02-17] MEDS ORDERED: Potassium Chloride Elixir 20 MEQ/15 ML UDC PO ONE (11:05)
[2019-02-17] MEDS: Menthol 9.1 MG LOZENGE PO PRN ×3 (11:26→23:58)
[2019-02-17] MEDS ORDERED: Clinimix E 5%-15% SOLUTION 2,000 ML with MVI, adult with vitamin K 10 ML IVC SCH (12:06)
[2019-02-17] MEDS ORDERED: *HR* Metformin 500 MG TABLET PO SCH (17:00)
[2019-02-17] MEDS: Lurasidone 20 MG TABLET PO SCH (17:50)
[2019-02-17] MEDS ORDERED: Divalproex (24 HR) 500 MG TABLET PO SCH (18:00)
[2019-02-17] MEDS: Valproic Acid Oral Soln 250 MG/5 ML UDC PO SCH (21:35)
[2019-02-17] MEDS: QUEtiapine Fumarate 100 MG TABLET PO SCH (21:35)
[2019-02-18] MEDS: Menthol 9.1 MG LOZENGE PO PRN ×2 (03:05→07:23)
[2019-02-18] MEDS: Ipratropium/Albuterol Neb 3 ML IH SCH ×2 (04:00→10:24)
[2019-02-18] MEDS: Insulin LISPRO 300 UNITS/3 ML VIAL SQ SCH ×3 (04:13→13:26)
[2019-02-18] MEDS: Valproic Acid Oral Soln 250 MG/5 ML UDC PO SCH (04:20)
[2019-02-18] MEDS: *HR* Heparin 5,000 UNIT/ML VIAL SQ SCH (04:20)
[2019-02-18 04:37] LABS: Basophils # 0.1 K/mcL (0.0-0.2); Basophils % 0.4 %; Eosinophils # 0.5 K/mcL (0.0-0.6); Eosinophils % 4.1 %; Hematocrit 32.5 % (37.5-50.1); Hemoglobin 10.5 g/dL (12.9-16.9); Immature Granulocytes % 4.3 % (0-4); Lymphocytes # 3.7 K/mcL (0.6-4.6); Lymphocytes % 32.3 %; Mean Corpuscular HGB Conc 32.3 g/dL (31.6-35.5); Mean Corpuscular Hemoglobin 29.4 pg (28.0-33.3); Mean Platelet Volume 10.1 fL (9.4-12.4); Monocytes # 1.9 K/mcL (0.0-1.3); Monocytes % 16.8 %; Neutrophils # 4.8 K/mcL (1.6-8.9); Platelet Count 290 K/mcL (140-400); Red Blood Count 3.57 M/mcL (4.19-5.50); Red Cell Distribution Width 12.8 % (11.5-14.5); Segmented Neutrophils % 42.1 %; White Blood Count 11.3 K/mcL (4.3-11.1)
[2019-02-18 04:56] LABS: BUN/Creatinine Ratio 23 (6-26); Blood Urea Nitrogen 19 mg/dL (6-20); Calcium 8.1 mg/dL (8.6-10.3); Carbon Dioxide 24 mEq/L (23-29); Chloride 106 mEq/L (98-107); Glucose 173 mg/dL (70-105); Magnesium 1.6 mg/dL (1.6-2.6); Osmolality,Calculated 294 (280-300); Phosphorous 3.2 mg/dL (2.7-4.5); Potassium 3.7 mEq/L (3.5-5.1); Sodium 139 mEq/L (136-145); eGFR For African Americans > 60 (> 60); eGFR For Non-African Americans > 60 (> 60)
[2019-02-18 05:08] LABS: Platelet Estimate Normal (Normal)
[2019-02-18] MEDS ORDERED: Divalproex (24 HR) 500 MG TABLET PO SCH (06:00)
[2019-02-18] MEDS ORDERED: Isovue-370 500 ML BOTTLE IVP ONE ×2 (07:08→08:44)
[2019-02-18 10:05] VITALS: BP 101/66
[2019-02-18] MEDS: Pantoprazole 40 MG VIAL IVP SCH (10:06)
== END 2019-02-18 14:09 | disposition home or self-care (01) | DRG 330 ==
LOC: SAMDAY 10:51 → 3ANU 19:15
PROVIDERS: ADMIT Surgery; ATTEND Surgery

== ENCOUNTER 2019-12-09 05:48 | Inpatient (IN) ==
[2019-12-09] MEDS ORDERED: Ondansetron 4 MG/2 ML VIAL IVP ONE (06:23)
[2019-12-09] MEDS ORDERED: 0.9 % Sodium Chloride 1,000 ML IV ONE (06:23)
[2019-12-09 06:28] LABS: Basophils # 0.1 K/mcL (0.0-0.2); Basophils % 0.9 %; Eosinophils # 0.5 K/mcL (0.0-0.6); Eosinophils % 3.5 %; Hematocrit 45.2 % (37.5-50.1); Hemoglobin 15.3 g/dL (12.9-16.9); Immature Granulocytes % 0.7 % (0-4); Lymphocytes # 4.9 K/mcL (0.6-4.6); Mean Corpuscular HGB Conc 33.8 g/dL (31.6-35.5); Mean Corpuscular Hemoglobin 30.4 pg (28.0-33.3); Mean Corpuscular Volume 89.7 fL (83.0-100.0); Monocytes # 1.1 K/mcL (0.0-1.3); Monocytes % 8.8 %; Platelet Count 300 K/mcL (140-400); Red Blood Count 5.04 M/mcL (4.19-5.50); Red Cell Distribution Width 13.2 % (11.5-14.5); Segmented Neutrophils % 47.1 %; White Blood Count 12.7 K/mcL (4.3-11.1)
[2019-12-09 06:54] LABS: Troponin I < 0.03 ng/mL (< 0.04)
[2019-12-09 07:04] LABS: Acetaminophen < 10 mcg/mL (10-20); BUN/Creatinine Ratio 18 (6-26); Blood Urea Nitrogen 16 mg/dL (6-20); Calcium 9.6 mg/dL (8.6-10.3); Carbon Dioxide 22 mEq/L (23-29); Chloride 105 mEq/L (98-107); Ethanol < 10 mg/dL (Less than 10); Glucose 177 mg/dL (70-105); Osmolality,Calculated 294 (280-300); Potassium 4.5 mEq/L (3.5-5.1); Salicylate < 2.5 mg/dL (15.0-30.0); Sodium 139 mEq/L (136-145); eGFR For African Americans > 60 (> 60); eGFR For Non-African Americans > 60 (> 60)
[2019-12-09] MEDS ORDERED: 0.9 % Sodium Chloride 1,000 ML IVC STA (08:13)
[2019-12-09] MEDS ORDERED: Naloxone 0.4 MG/ML INJ IVP PRN (09:01)
[2019-12-09 09:49] LABS: ABG Base Excess -8 mEq/L (-2 to 3); ABG HCO3 18 mEq/L (21-27); ABG Oxygen Saturation 81 % (95-98); ABG PCO2 37 mmHg (35-45); ABG PH 7.29 pH Units (7.32-7.45); ABG PO2 50 mmHg (85-104); ABG TCO2 19 mEq/L (20-26)
[2019-12-09] MEDS: Ringers Solution, Lactated 1,000 ML IVC SCH ×2 (11:58→15:40)
[2019-12-09] MEDS ORDERED: Calcium Gluconate 1,000 MG/10 ML VIAL IVP ONE ×2 (12:12→12:14)
[2019-12-09] MEDS ORDERED: Calcium Gluconate 1,000 MG/10 ML VIAL ONE ×2 (12:14→12:17)
[2019-12-09] MEDS ORDERED: Sodium Bicarbonate 50 MEQ/50 ML VIAL ONE (12:17)
[2019-12-09] MEDS ORDERED: Sodium Bicarbonate 50 MEQ/50 ML VIAL IVP ONE (12:18)
[2019-12-09] MEDS: flumazeniL 0.5 MG/5 ML VIAL IVP ONE ×2 (12:34→12:36)
[2019-12-09] MEDS: Ondansetron 4 MG/2 ML VIAL IVP PRN ×2 (12:52→23:30)
[2019-12-09] MEDS ORDERED: Glucagon, Human Recombinant 12 MG in 0.9 % Sodium Chloride 238 ML IVC SCH (13:00)
[2019-12-09 13:07] LABS: VBG Ionized Calcium 1.19 mmol/L (1.15-1.35)
[2019-12-09 13:09] LABS: Bilirubin,Urine Negative (Negative); Blood,Urine Negative (Negative); Color,Urine Yellow (Yellow); Glucose,Urine (UA) 250 mg/dL (Normal); Ketones,Urine Negative (Negative); Leukocyte Esterase,Urine Negative (Negative); Nitrite,Urine Negative (Negative); PH,Urine 5.5 pH Units (5.0-8.0); Protein,Urine >=300 mg/dL (Neg-Trace); Urobilinogen,Urine Normal (Normal)
[2019-12-09 13:12] LABS: Bacteria,Urine None Seen per hpf (None-Few); Hyaline Casts,Urine None Seen per lpf (None-Few); Squamous Epithelial Cell,Urine Many per lpf (None-Few)
[2019-12-09] MEDS ORDERED: 0.9 % Sodium Chloride 1,000 ML ONE (13:12)
[2019-12-09] MEDS ORDERED: Heparin 1,000 UNITS/500 mL 0 ML ONE (13:12)
[2019-12-09 13:13] LABS: Clarity,Urine Slightly Cloudy (Clear)
[2019-12-09 13:19] LABS: Amphetamine Screen,Urine Negative ng/mL (Cutoff=1000); Barbiturate Screen,Urine Negative ng/mL (Cutoff=200); Benzodiazepines Screen,Urine Negative ng/mL (Cutoff=200); Cannabinoid Screen,Urine Negative ng/mL (Cutoff = 50); Cocaine Screen,Urine Negative ng/mL (Cutoff= 300); Opiate Screen,Urine Negative ng/mL (Cutoff=300); Phencyclidine Screen,Urine Negative ng/mL (Cutoff=25)
[2019-12-09] MEDS ORDERED: *HR* Dextrose 50 % in Water (Syg) 50 ML SYRINGE IVP PRN (13:20)
[2019-12-09] MEDS ORDERED: [UNRECOGNIZED DRUG - OTHER] IVC SCH (14:00)
[2019-12-09] MEDS ORDERED: SODIUM CHLORIDE IVC SCH ×4 (14:00→23:30)
[2019-12-09] MEDS ORDERED: WATER IVC SCH ×4 (14:00→23:30)
[2019-12-09] MEDS ORDERED: DEXTROSE IVC SCH ×4 (14:00→23:30)
[2019-12-09 14:04] LABS: BUN/Creatinine Ratio 11 (6-26); Blood Urea Nitrogen 19 mg/dL (6-20); Calcium 8.7 mg/dL (8.6-10.3); Carbon Dioxide 17 mEq/L (23-29); Chloride 109 mEq/L (98-107); Glucose 196 mg/dL (70-105); Magnesium 1.9 mg/dL (1.6-2.6); Osmolality,Calculated 290 (280-300); Phosphorous 4.5 mg/dL (2.7-4.5); Sodium 136 mEq/L (136-145); Troponin I < 0.03 ng/mL (< 0.04); eGFR For African Americans 48 (> 60); eGFR For Non-African Americans 40 (> 60)
[2019-12-09 14:06] LABS: Potassium 8.1 mEq/L (3.5-5.1)
[2019-12-09 14:13] LABS: Alanine Aminotransferase 38 Units/L (7-52); Albumin 3.8 g/dL (3.5-5.7); Albumin/Globulin Ratio 1.5 (1.1-2.2); Alkaline Phosphatase 83 Units/L (34-104); Aspartate Amino Transferase 39 Units/L (13-39); Bilirubin,Total 0.3 mg/dL (0.3-1.0); Globulin 2.6 g/dL (2.4-3.5); Total Protein 6.4 g/dL (6.4-8.9)
[2019-12-09] MEDS ORDERED: Albuterol 2.5 MG/3 ML NEBULIZER IH ONE (14:15)
[2019-12-09] MEDS ORDERED: WATER IVPB SCH (14:15)
[2019-12-09] MEDS ORDERED: D5 IVPB SCH (14:15)
[2019-12-09] MEDS ORDERED: CALCIUM CHLORIDE IVPB SCH (14:15)
[2019-12-09] MEDS ORDERED: Albuterol 2.5 MG/3 ML NEBULIZER ONE (14:16)
[2019-12-09] MEDS ORDERED: 0.9 % Sodium Chloride 250 ML IVC PRN ×2 (14:21→17:51)
[2019-12-09] MEDS ORDERED: Albumin 25% 25gram/100mL 25 GM/100 ML IV.SOLN IVPB PRN (14:21)
[2019-12-09] MEDS: Insulin Human Regular 250 UNIT in 0.9 % Sodium Chloride 250 ML IVC SCH ×2 (14:29→16:56)
[2019-12-09] MEDS: D10% in Water 500 ML IVC SCH ×2 (14:30→23:06)
[2019-12-09] MEDS ORDERED: 0.9 % Sodium Chloride 1,000 ML PRIME SCH (14:30)
[2019-12-09 14:37] LABS: Alanine Aminotransferase 42 Units/L (7-52); Albumin 3.9 g/dL (3.5-5.7); Albumin/Globulin Ratio 1.4 (1.1-2.2); Alkaline Phosphatase 88 Units/L (34-104); Aspartate Amino Transferase 41 Units/L (13-39); BUN/Creatinine Ratio 11 (6-26); Bilirubin,Total 0.3 mg/dL (0.3-1.0); Blood Urea Nitrogen 20 mg/dL (6-20); Calcium 8.7 mg/dL (8.6-10.3); Carbon Dioxide 16 mEq/L (23-29); Chloride 107 mEq/L (98-107); Globulin 2.7 g/dL (2.4-3.5); Glucose 254 mg/dL (70-105); Osmolality,Calculated 291 (280-300); Potassium 8.3 mEq/L (3.5-5.1); Sodium 135 mEq/L (136-145); Total Protein 6.6 g/dL (6.4-8.9); Troponin I < 0.03 ng/mL (< 0.04); eGFR For African Americans 46 (> 60); eGFR For Non-African Americans 38 (> 60)
[2019-12-09 15:11] LABS: Hepatitis B Surface Antibody > 850.00 mIU/mL
[2019-12-09] MEDS ORDERED: 0.9 % Sodium Chloride 500 ML ONE (15:14)
[2019-12-09 15:22] LABS: Hepatitis B Surface Antigen Nonreactive (Nonreactive)
[2019-12-09] MEDS: SODIUM CHLORIDE IVC SCH ×3 (15:46→23:05)
[2019-12-09] MEDS: WATER IVC SCH ×3 (15:46→23:05)
[2019-12-09] MEDS: DEXTROSE IVC SCH ×3 (15:46→23:05)
[2019-12-09] MEDS ORDERED: flumazeniL 0.5 MG/5 ML VIAL IVP ONE (16:54)
[2019-12-09] MEDS ORDERED: *HR* Heparin 10,000 UNIT/10 ML VIAL IV PRN (17:51)
[2019-12-09] MEDS: *HR* Heparin 5,000 UNIT/ML VIAL SQ SCH ×2 (18:13→22:09)
[2019-12-09] MEDS: Norepinephrine 4 MG in 0.9 % Sodium Chloride 250 ML IVC SCH (18:50)
[2019-12-09 23:50] LABS: Albumin 3.6 g/dL (3.5-5.7); Albumin/Globulin Ratio 1.6 (1.1-2.2); Bilirubin,Total 0.4 mg/dL (0.3-1.0); Calcium 9.3 mg/dL (8.6-10.3); Globulin 2.3 g/dL (2.4-3.5); Magnesium 1.7 mg/dL (1.6-2.6); Potassium 4.5 mEq/L (3.5-5.1); Total Protein 5.9 g/dL (6.4-8.9)
[2019-12-10] MEDS: WATER IVC SCH (02:35)
[2019-12-10] MEDS: SODIUM CHLORIDE IVC SCH (02:35)
[2019-12-10] MEDS: DEXTROSE IVC SCH (02:35)
[2019-12-10 04:34] LABS: Basophils % 0.1 %; Hematocrit 35.7 % (37.5-50.1); Lymphocytes # 2.3 K/mcL (0.6-4.6); Mean Corpuscular HGB Conc 32.5 g/dL (31.6-35.5); Mean Corpuscular Hemoglobin 29.5 pg (28.0-33.3); Mean Corpuscular Volume 90.8 fL (83.0-100.0); Mean Platelet Volume 10.3 fL (9.4-12.4); Monocytes # 2.3 K/mcL (0.0-1.3); Monocytes % 10.8 %; Platelet Count 202 K/mcL (140-400); Red Blood Count 3.93 M/mcL (4.19-5.50); Red Cell Distribution Width 13.3 % (11.5-14.5); Segmented Neutrophils % 77.1 %
[2019-12-10 04:35] LABS: Hemoglobin 11.6 g/dL (12.9-16.9); Neutrophils # 16.4 K/mcL (1.6-8.9); White Blood Count 21.2 K/mcL (4.3-11.1)
[2019-12-10 04:52] LABS: Albumin 3.7 g/dL (3.5-5.7); Albumin/Globulin Ratio 1.8 (1.1-2.2); Bilirubin,Direct 0.1 mg/dL (0.0-0.2); Bilirubin,Indirect 0.2 mg/dL (0.0-1.0); Bilirubin,Total 0.3 mg/dL (0.3-1.0); Calcium 9.1 mg/dL (8.6-10.3); Globulin 2.1 g/dL (2.4-3.5); Potassium 4.7 mEq/L (3.5-5.1); Total Protein 5.8 g/dL (6.4-8.9)
[2019-12-10] MEDS ORDERED: WATER IVC SCH ×2 (06:00→09:00)
[2019-12-10] MEDS ORDERED: DEXTROSE IVC SCH ×2 (06:00→09:00)
[2019-12-10] MEDS ORDERED: SODIUM CHLORIDE IVC SCH ×2 (06:00→09:00)
[2019-12-10] MEDS: *HR* Heparin 5,000 UNIT/ML VIAL SQ SCH ×3 (06:16→22:13)
[2019-12-10] MEDS ORDERED: Piperacillin/Tazobactam 3.375 GM in 0.9 % Sodium Chloride Mini Bag 100 ML IVPB SCH (08:00)
[2019-12-10] MEDS ORDERED: 0.9 % Sodium Chloride 250 ML IVC PRN (08:43)
[2019-12-10] MEDS: D10% in Water 500 ML IVC SCH ×3 (09:02→19:48)
[2019-12-10] MEDS ORDERED: *HR* Heparin 10,000 UNIT/10 ML VIAL IV PRN (11:42)
[2019-12-10] MEDS: Ondansetron 4 MG/2 ML VIAL IVP PRN (15:05)
[2019-12-10 15:07] LABS: VBG PH 7.34 pH Units (7.32-7.42)
[2019-12-10 15:49] LABS: Calcium 7.7 mg/dL (8.6-10.3); Magnesium 1.5 mg/dL (1.6-2.6); Phosphorous 4.7 mg/dL (2.7-4.5); Potassium 4.3 mEq/L (3.5-5.1)
[2019-12-10] MEDS: Norepinephrine 4 MG in 0.9 % Sodium Chloride 250 ML IVC SCH (19:38)
[2019-12-10] MEDS: Piperacillin/Tazobactam 3.375 GM in 0.9 % Sodium Chloride Mini Bag 100 ML IVPB SCH (19:51)
[2019-12-11] MEDS: D10% in Water 500 ML IVC SCH ×3 (01:21→07:31)
[2019-12-11 04:25] LABS: Basophils % 0.2 %; Eosinophils # 0.1 K/mcL (0.0-0.6); Eosinophils % 0.4 %; Hematocrit 29.9 % (37.5-50.1); Immature Granulocytes % 0.4 % (0-4); Lymphocytes # 3.2 K/mcL (0.6-4.6); Lymphocytes % 22.2 %; Mean Corpuscular HGB Conc 32.4 g/dL (31.6-35.5); Mean Corpuscular Hemoglobin 29.8 pg (28.0-33.3); Mean Corpuscular Volume 91.7 fL (83.0-100.0); Mean Platelet Volume 10.4 fL (9.4-12.4); Monocytes # 2.2 K/mcL (0.0-1.3); Monocytes % 15.6 %; Neutrophils # 8.8 K/mcL (1.6-8.9); Nucleated Red Blood Cells 0.1 /100 WBC (0); Platelet Count 149 K/mcL (140-400); Red Blood Count 3.26 M/mcL (4.19-5.50); Red Cell Distribution Width 13.5 % (11.5-14.5); Segmented Neutrophils % 61.2 %; White Blood Count 14.3 K/mcL (4.3-11.1)
[2019-12-11 04:26] LABS: Hemoglobin 9.7 g/dL (12.9-16.9)
[2019-12-11 04:44] LABS: Calcium 7.4 mg/dL (8.6-10.3); Potassium 4.1 mEq/L (3.5-5.1)
[2019-12-11] MEDS ORDERED: D10% in Water 500 ML IVC SCH (05:00)
[2019-12-11] MEDS: *HR* Heparin 5,000 UNIT/ML VIAL SQ SCH ×3 (05:20→20:10)
[2019-12-11] MEDS: Piperacillin/Tazobactam 3.375 GM in 0.9 % Sodium Chloride Mini Bag 100 ML IVPB SCH ×2 (07:29→20:09)
[2019-12-11] MEDS ORDERED: D10 IVC SCH (09:45)
[2019-12-11] MEDS ORDERED: WATER IVC SCH (09:45)
[2019-12-11] MEDS ORDERED: SODIUM CHLORIDE IVC SCH (09:45)
[2019-12-11] MEDS: Norepinephrine 4 MG in 0.9 % Sodium Chloride 250 ML IVC SCH (09:55)
[2019-12-11] MEDS ORDERED: D5% in 0.9% NACL 1,000 ML IVC SCH ×2 (10:00→12:01)
[2019-12-11] MEDS ORDERED: *HR* Propofol 200 MG/20 ML VIAL IVP ONE (10:07)
[2019-12-11] MEDS ORDERED: Lidocaine -MPF 2% 2 ML VIAL ONE (10:07)
[2019-12-11 10:18] LABS: Prothrombin Time 11.7 Seconds (9.4-12.1)
[2019-12-11] MEDS ORDERED: Pantoprazole 40 MG VIAL IVP SCH (11:15)
[2019-12-11] MEDS ORDERED: *HR* Dextrose 50 % in Water (Syg) 50 ML SYRINGE IVP PRN (12:01)
[2019-12-11] MEDS ORDERED: Ondansetron 4 MG/2 ML VIAL IVP PRN (12:01)
[2019-12-11] MEDS ORDERED: *HR* Heparin 10,000 UNIT/10 ML VIAL IV PRN (12:01)
[2019-12-11] MEDS ORDERED: Naloxone 0.4 MG/ML INJ IVP PRN (12:01)
[2019-12-11] MEDS ORDERED: Heparin 1,000 UNITS/500 mL 500 ML ONE (15:23)
[2019-12-11] MEDS ORDERED: Lidocaine/EPI 1:100k 1% 50 ML VIAL ONE (15:23)
[2019-12-11] MEDS ORDERED: *HR* Heparin 5,000 UNIT/ML VIAL ONE (15:41)
[2019-12-11] MEDS ORDERED: Albuterol 2.5 MG/3 ML NEBULIZER IH PRN (16:49)
[2019-12-11] MEDS: D5% in 0.9% NACL 1,000 ML IVC SCH ×2 (17:29→22:13)
[2019-12-11 23:02] LABS: Bilirubin,Urine Negative (Negative); Blood,Urine Trace (Negative); Clarity,Urine Clear (Clear); Color,Urine Yellow (Yellow); Glucose,Urine (UA) 100 mg/dL (Normal); Ketones,Urine Negative (Negative); Leukocyte Esterase,Urine Negative (Negative); Nitrite,Urine Negative (Negative); PH,Urine 6.5 pH Units (5.0-8.0); Protein,Urine 30 mg/dL (Neg-Trace); Specific Gravity,Urine 1.011 (1.010-1.025); Urobilinogen,Urine Normal (Normal)
[2019-12-11 23:03] LABS: Bacteria,Urine None Seen per hpf (None-Few); Hyaline Casts,Urine None Seen per lpf (None-Few); Squamous Epithelial Cell,Urine Moderate per lpf (None-Few); WBC,Urine 0-3 per hpf (0-3)
[2019-12-12] MEDS ORDERED: Saline Nasal Spray 44 ML BOTTLE NS PRN (01:24)
[2019-12-12] MEDS: WATER IVC SCH (03:44)
[2019-12-12] MEDS: DEXTROSE IVC SCH (03:44)
[2019-12-12] MEDS: SODIUM CHLORIDE IVC SCH (03:44)
[2019-12-12 04:14] LABS: Basophils % 0.4 %; Eosinophils # 0.1 K/mcL (0.0-0.6); Eosinophils % 1.2 %; Hematocrit 27.9 % (37.5-50.1); Hemoglobin 9.4 g/dL (12.9-16.9); Immature Granulocytes % 0.4 % (0-4); Lymphocytes % 23.5 %; Mean Corpuscular HGB Conc 33.7 g/dL (31.6-35.5); Mean Corpuscular Hemoglobin 29.7 pg (28.0-33.3); Mean Corpuscular Volume 88.3 fL (83.0-100.0); Mean Platelet Volume 10.2 fL (9.4-12.4); Monocytes # 1.1 K/mcL (0.0-1.3); Monocytes % 12.6 %; Neutrophils # 5.3 K/mcL (1.6-8.9); Platelet Count 125 K/mcL (140-400); Red Blood Count 3.16 M/mcL (4.19-5.50); Red Cell Distribution Width 12.4 % (11.5-14.5); Segmented Neutrophils % 61.9 %; White Blood Count 8.5 K/mcL (4.3-11.1)
[2019-12-12 04:32] LABS: Albumin 3.2 g/dL (3.5-5.7); Calcium 7.7 mg/dL (8.6-10.3); Phosphorous 3.5 mg/dL (2.7-4.5); Potassium 3.2 mEq/L (3.5-5.1)
[2019-12-12] MEDS: *HR* Heparin 5,000 UNIT/ML VIAL SQ SCH ×3 (05:07→21:29)
[2019-12-12] MEDS ORDERED: 0.9 % Sodium Chloride 250 ML IVC PRN (06:18)
[2019-12-12] MEDS ORDERED: 0.9 % Sodium Chloride 2,000 ML ONE (06:56)
[2019-12-12] MEDS: Piperacillin/Tazobactam 3.375 GM in 0.9 % Sodium Chloride Mini Bag 100 ML IVPB SCH ×2 (07:58→21:31)
[2019-12-12] MEDS: Pantoprazole 40 MG VIAL IVP SCH (07:58)
[2019-12-12] MEDS: D5% in 0.9% NACL 1,000 ML IVC SCH (11:18)
[2019-12-12] MEDS ORDERED: Chloraseptic Spray 177 ML BOTTLE MM PRN (20:53)
[2019-12-13] MEDS: D5% in 0.9% NACL 1,000 ML IVC SCH ×2 (00:43→13:05)
[2019-12-13] MEDS ORDERED: Acetaminophen IV 1,000 MG/100 ML INFUS..BTL IVPB ONE (01:02)
[2019-12-13 04:02] LABS: Hemoglobin 9.7 g/dL (12.9-16.9); Mean Corpuscular HGB Conc 33.4 g/dL (31.6-35.5); Mean Corpuscular Hemoglobin 29.1 pg (28.0-33.3); Mean Corpuscular Volume 87.1 fL (83.0-100.0); Mean Platelet Volume 9.7 fL (9.4-12.4); Platelet Count 133 K/mcL (140-400); Red Blood Count 3.33 M/mcL (4.19-5.50); Red Cell Distribution Width 12.2 % (11.5-14.5); White Blood Count 7.1 K/mcL (4.3-11.1)
[2019-12-13 04:23] LABS: Calcium 7.9 mg/dL (8.6-10.3); Potassium 3.3 mEq/L (3.5-5.1)
[2019-12-13] MEDS: *HR* Heparin 5,000 UNIT/ML VIAL SQ SCH ×3 (05:45→21:27)
[2019-12-13] MEDS: Pantoprazole 40 MG VIAL IVP SCH (07:34)
[2019-12-13] MEDS: Piperacillin/Tazobactam 3.375 GM in 0.9 % Sodium Chloride Mini Bag 100 ML IVPB SCH ×2 (07:39→21:25)
[2019-12-14] MEDS: D5% in 0.9% NACL 1,000 ML IVC SCH ×2 (02:31→15:16)
[2019-12-14] MEDS: *HR* Heparin 5,000 UNIT/ML VIAL SQ SCH ×3 (05:28→20:59)
[2019-12-14 06:06] LABS: Hematocrit 25.6 % (37.5-50.1); Hemoglobin 8.5 g/dL (12.9-16.9); Mean Corpuscular HGB Conc 33.2 g/dL (31.6-35.5); Mean Corpuscular Hemoglobin 30.4 pg (28.0-33.3); Mean Corpuscular Volume 91.4 fL (83.0-100.0); Platelet Count 144 K/mcL (140-400); Red Cell Distribution Width 12.4 % (11.5-14.5); White Blood Count 7.6 K/mcL (4.3-11.1)
[2019-12-14 06:27] LABS: Calcium 8.4 mg/dL (8.6-10.3); Potassium 3.1 mEq/L (3.5-5.1)
[2019-12-14] MEDS: Pantoprazole 40 MG VIAL IVP SCH (08:10)
[2019-12-14] MEDS: Piperacillin/Tazobactam 3.375 GM in 0.9 % Sodium Chloride Mini Bag 100 ML IVPB SCH (08:11)
[2019-12-14 08:54] LABS: Magnesium 1.3 mg/dL (1.6-2.6)
[2019-12-14 09:26] LABS: % Iron Saturation 21 % (20-55); Iron 67 mcg/dL (65-175); Transferrin 228 mg/dL (203-362)
[2019-12-14 09:45] LABS: Ferritin 106 ng/mL (20-250)
[2019-12-14 09:50] LABS: Folate 20.9 ng/mL (3.0-16.0)
[2019-12-14] MEDS: carBAMazepine 200 MG TABLET PO SCH (12:20)
[2019-12-14] MEDS: amLODIPine 5 MG TABLET PO SCH (12:20)
[2019-12-14] MEDS ORDERED: carBAMazepine 200 MG TABLET PO SCH (21:00)
[2019-12-15] MEDS: D5% in 0.9% NACL 1,000 ML IVC SCH (03:55)
[2019-12-15 04:17] LABS: Hematocrit 30.1 % (37.5-50.1); Hemoglobin 10.2 g/dL (12.9-16.9); Mean Corpuscular HGB Conc 33.9 g/dL (31.6-35.5); Mean Corpuscular Hemoglobin 29.7 pg (28.0-33.3); Mean Corpuscular Volume 87.5 fL (83.0-100.0); Mean Platelet Volume 9.7 fL (9.4-12.4); Platelet Count 191 K/mcL (140-400); Red Blood Count 3.44 M/mcL (4.19-5.50); Red Cell Distribution Width 12.8 % (11.5-14.5); White Blood Count 9.4 K/mcL (4.3-11.1)
[2019-12-15 04:38] LABS: BUN/Creatinine Ratio 11 (6-26); Blood Urea Nitrogen 13 mg/dL (6-20); Calcium 7.9 mg/dL (8.6-10.3); Carbon Dioxide 25 mEq/L (23-29); Chloride 106 mEq/L (98-107); Glucose 131 mg/dL (70-105); Osmolality,Calculated 296 (280-300); Potassium 3.2 mEq/L (3.5-5.1); Sodium 142 mEq/L (136-145); eGFR For African Americans > 60 (> 60); eGFR For Non-African Americans > 60 (> 60)
[2019-12-15] MEDS: *HR* Heparin 5,000 UNIT/ML VIAL SQ SCH ×2 (06:41→16:05)
[2019-12-15] MEDS: amLODIPine 5 MG TABLET PO SCH (08:02)
[2019-12-15] MEDS: carBAMazepine 200 MG TABLET PO SCH (08:03)
[2019-12-15] MEDS: Pantoprazole 40 MG VIAL IVP SCH (08:04)
[2019-12-15 16:17] VITALS: BP 151/82
== END 2019-12-15 17:58 | DRG 817 ==
LOC: EMEROOARM 05:48 → 3BNU 05:48 → ICNU 08:05 → SUATTDRO 09:01 → 2ANU 12-11 13:18
PROVIDERS: ADMIT Internal Medicine; ATTEND Family Medicine
PROC: ENDOEBX (2019-12-11 11:15)

== ENCOUNTER 2019-12-15 18:00 | Inpatient (IN) ==
[2019-12-15] MEDS ORDERED: MOM Conc 10 ML UD.LIQ PO PRN (18:40)
[2019-12-15] MEDS ORDERED: Haloperidol Lactate 5 MG/ML VIAL IM PRN (18:40)
[2019-12-15] MEDS ORDERED: *HR* LORazepam 2 MG/ML VIAL IM PRN (18:40)
[2019-12-15] MEDS ORDERED: haloperidoL 5 MG TABLET PO PRN (18:40)
[2019-12-15] MEDS ORDERED: *HR* LORazepam 1 MG TABLET PO PRN (18:40)
[2019-12-15] MEDS ORDERED: Mag Hydrox/Al Hydrox/Simeth 30 ML UDC PO PRN (18:40)
[2019-12-15] MEDS ORDERED: SUMAtriptan succinate 50 MG TABLET PO PRN (18:47)
[2019-12-15] MEDS: Acetaminophen 325 MG TABLET PO PRN (20:29)
[2019-12-15] MEDS: traZODone 50 MG TABLET PO PRN (20:29)
[2019-12-15] MEDS: hydrOXYzine pamoate 25 MG CAPSULE PO PRN (20:29)
[2019-12-15] MEDS: carBAMazepine 200 MG TABLET PO SCH (20:29)
[2019-12-16] MEDS: Ziprasidone 20 MG CAPSULE PO SCH ×2 (10:59→20:10)
[2019-12-16] MEDS: amLODIPine 5 MG TABLET PO SCH (10:59)
[2019-12-16] MEDS: carBAMazepine 200 MG TABLET PO SCH ×2 (10:59→20:10)
[2019-12-16] MEDS: traZODone 50 MG TABLET PO PRN (20:10)
[2019-12-16] MEDS: hydrOXYzine pamoate 25 MG CAPSULE PO PRN (20:10)
[2019-12-17] MEDS: Acetaminophen 325 MG TABLET PO PRN ×2 (00:19→20:05)
[2019-12-17] MEDS: Ziprasidone 20 MG CAPSULE PO SCH ×2 (08:41→20:05)
[2019-12-17] MEDS: amLODIPine 5 MG TABLET PO SCH (08:41)
[2019-12-17] MEDS: carBAMazepine 200 MG TABLET PO SCH ×2 (08:42→20:05)
[2019-12-17] MEDS ORDERED: traZODone 50 MG TABLET PO PRN (10:14)
[2019-12-17] MEDS: hydrOXYzine pamoate 25 MG CAPSULE PO PRN (20:05)
[2019-12-18] MEDS: Acetaminophen 325 MG TABLET PO PRN ×2 (06:44→20:13)
[2019-12-18] MEDS: amLODIPine 5 MG TABLET PO SCH (08:48)
[2019-12-18] MEDS: Ziprasidone 20 MG CAPSULE PO SCH ×2 (08:48→20:14)
[2019-12-18] MEDS: carBAMazepine 200 MG TABLET PO SCH ×2 (08:49→20:14)
[2019-12-18] MEDS ORDERED: traZODone 50 MG TABLET PO PRN (09:54)
[2019-12-18] MEDS: hydrOXYzine pamoate 25 MG CAPSULE PO PRN (20:13)
[2019-12-18] MEDS ORDERED: traZODone 50 MG TABLET PO SCH (21:00)
[2019-12-19] MEDS: Ziprasidone 20 MG CAPSULE PO SCH ×2 (08:39→16:36)
[2019-12-19] MEDS: carBAMazepine 200 MG TABLET PO SCH ×2 (08:39→20:27)
[2019-12-19] MEDS: amLODIPine 5 MG TABLET PO SCH (08:39)
[2019-12-20] MEDS: Ziprasidone 20 MG CAPSULE PO SCH ×2 (08:47→16:56)
[2019-12-20] MEDS: carBAMazepine 200 MG TABLET PO SCH ×2 (08:48→20:51)
[2019-12-20] MEDS: amLODIPine 5 MG TABLET PO SCH (08:48)
[2019-12-20] MEDS: Acetaminophen 325 MG TABLET PO PRN ×2 (08:50→19:37)
[2019-12-20] MEDS: Nicotine 2 MG GUM BC PRN (12:40)
[2019-12-21] MEDS: hydrOXYzine pamoate 25 MG CAPSULE PO PRN ×2 (00:02→19:45)
[2019-12-21] MEDS: Ziprasidone 20 MG CAPSULE PO SCH ×2 (08:30→16:54)
[2019-12-21] MEDS: carBAMazepine 200 MG TABLET PO SCH ×2 (08:30→22:02)
[2019-12-21] MEDS: amLODIPine 5 MG TABLET PO SCH (08:31)
[2019-12-21] MEDS ORDERED: QUEtiapine Fumarate 100 MG TABLET PO PRN (09:21)
[2019-12-21] MEDS: Nicotine 2 MG GUM BC PRN ×4 (10:00→21:19)
[2019-12-21] MEDS: QUEtiapine Fumarate 100 MG TABLET PO SCH (22:02)
[2019-12-22] MEDS: amLODIPine 5 MG TABLET PO SCH (08:03)
[2019-12-22] MEDS: carBAMazepine 200 MG TABLET PO SCH ×2 (08:03→20:41)
[2019-12-22] MEDS: Ziprasidone 20 MG CAPSULE PO SCH ×2 (08:03→17:08)
[2019-12-22] MEDS: Nicotine 2 MG GUM BC PRN ×3 (12:01→20:42)
[2019-12-22] MEDS: Acetaminophen 325 MG TABLET PO PRN ×2 (17:08→23:47)
[2019-12-22] MEDS: hydrOXYzine pamoate 25 MG CAPSULE PO PRN (20:42)
[2019-12-22] MEDS: QUEtiapine Fumarate 100 MG TABLET PO SCH (21:38)
[2019-12-23] MEDS: Nicotine 2 MG GUM BC PRN ×2 (04:49→13:03)
[2019-12-23] MEDS: Ziprasidone 20 MG CAPSULE PO SCH ×2 (08:15→17:06)
[2019-12-23] MEDS: carBAMazepine 200 MG TABLET PO SCH ×2 (08:16→20:34)
[2019-12-23] MEDS: amLODIPine 5 MG TABLET PO SCH (08:16)
[2019-12-23] MEDS: Acetaminophen 325 MG TABLET PO PRN ×2 (08:51→15:12)
[2019-12-23] MEDS ORDERED: QUEtiapine Fumarate 100 MG TABLET PO SCH (21:00)
[2019-12-23] MEDS: hydrOXYzine pamoate 25 MG CAPSULE PO PRN (21:44)
[2019-12-24] MEDS: Acetaminophen 325 MG TABLET PO PRN (06:50)
[2019-12-24] MEDS: carBAMazepine 200 MG TABLET PO SCH (08:45)
[2019-12-24] MEDS: amLODIPine 5 MG TABLET PO SCH (08:45)
[2019-12-24] MEDS: Ziprasidone 20 MG CAPSULE PO SCH (08:45)
[2019-12-24 09:41] VITALS: BP 148/77
== END 2019-12-24 13:40 | disposition home or self-care (01) | DRG 753 ==
LOC: 1ANU 18:00 → SUATTDRO 18:00 → 1ANU 12-22 16:00
PROVIDERS: ADMIT Psychiatry & Neurology Psychiatry; ATTEND Psychiatry & Neurology Psychiatry

== ENCOUNTER 2020-07-02 12:24 | Inpatient (IN) ==
[2020-07-02] MEDS ORDERED: Ipratropium/Albuterol Neb 3 ML IH ONE (12:30)
[2020-07-02] MEDS ORDERED: methylPREDNISolone 125 MG/2 ML VIAL IVP ONE (12:30)
[2020-07-02] MEDS ORDERED: levoFLOXacin 750 MG TABLET PO ONE (12:30)
[2020-07-02 13:50] LABS: Basophils % 0.2 %; Eosinophils % 0.2 %; Hemoglobin 12.2 g/dL (12.9-16.9); Immature Granulocytes % 0.5 % (0-4); Lymphocytes # 1.2 K/mcL (0.6-4.6); Lymphocytes % 19.4 %; Mean Corpuscular Hemoglobin 28.9 pg (28.0-33.3); Mean Corpuscular Volume 87.7 fL (83.0-100.0); Mean Platelet Volume 10.7 fL (9.4-12.4); Monocytes # 0.7 K/mcL (0.0-1.3); Monocytes % 11.5 %; Neutrophils # 4.3 K/mcL (1.6-8.9); Platelet Count 177 K/mcL (140-400); Red Blood Count 4.22 M/mcL (4.19-5.50); Red Cell Distribution Width 12.3 % (11.5-14.5); Segmented Neutrophils % 68.2 %; White Blood Count 6.3 K/mcL (4.3-11.1)
[2020-07-02 14:14] LABS: Alanine Aminotransferase 44 Units/L (7-52); Albumin 3.7 g/dL (3.5-5.7); Albumin/Globulin Ratio 1.2 (1.1-2.2); Alkaline Phosphatase 97 Units/L (34-104); Aspartate Amino Transferase 66 Units/L (13-39); BUN/Creatinine Ratio 22 (6-26); Bilirubin,Direct 0.1 mg/dL (0.0-0.2); Bilirubin,Indirect 0.3 mg/dL (0.0-1.0); Bilirubin,Total 0.4 mg/dL (0.3-1.0); Blood Urea Nitrogen 40 mg/dL (6-20); C-Reactive Protein 125 mg/L (Less than 10); Calcium 7.9 mg/dL (8.6-10.3); Carbon Dioxide 18 mEq/L (23-29); Chloride 102 mEq/L (98-107); Globulin 3.2 g/dL (2.4-3.5); Glucose 141 mg/dL (70-105); Lactate Dehydrogenase 416 Units/L (140-271); Magnesium 1.2 mg/dL (1.6-2.6); Osmolality,Calculated 288 (280-300); Phosphorous 2.6 mg/dL (2.7-4.5); Potassium 4.6 mEq/L (3.5-5.1); Sodium 133 mEq/L (136-145); Total Protein 6.9 g/dL (6.4-8.9); Troponin I < 0.03 ng/mL (< 0.04); eGFR For African Americans 46 (> 60); eGFR For Non-African Americans 38 (> 60)
[2020-07-02] MEDS ORDERED: 0.9 % Sodium Chloride 1,000 ML IVC ONE (14:19)
[2020-07-02 14:28] LABS: Ferritin 378 ng/mL (20-250)
[2020-07-02 14:42] LABS: INR 1.2; Prothrombin Time 13.5 Seconds (9.4-12.1)
[2020-07-02 14:44] LABS: Activated Partial Thrombo Time 29.5 Seconds (26.0-36.0)
[2020-07-02 15:23] LABS: Phenytoin (Dilantin) < 0.5 mcg/mL (10.0-20.0)
[2020-07-02 15:25] LABS: Adenovirus Not Detected (Not Detect); Coronavirus 229E Not Detected (Not Detect); Coronavirus HKU1 Not Detected (Not Detect); Coronavirus NL63 Not Detected (Not Detect); Coronavirus OC43 Not Detected (Not Detect)
[2020-07-02] MEDS ORDERED: Isovue-370 500 ML BOTTLE IVP ONE (15:27)
[2020-07-02 15:28] LABS: Bordetella Pertussis Not Detected (Not Detect); Chlamydophila pneumoniae Not Detected (Not Detect); Human Metapneumovirus Not Detected (Not Detect); Human Rhinovirus/Enterovirus Not Detected (Not Detect); Influenza A Subtype 2009 H1 Not Detected (Not Detect); Influenza B Not Detected (Not Detect); Mycoplasma pneumoniae Not Detected (Not Detect); Parainfluenza Virus 1 Not Detected (Not Detect); Parainfluenza Virus 2 Not Detected (Not Detect); Parainfluenza Virus 3 Not Detected (Not Detect); Parainfluenza Virus 4 Not Detected (Not Detect); Respiratory Syncytial Virus Not Detected (Not Detect); SARS-CoV-2 DETECTED (Not Detect)
[2020-07-02] MEDS ORDERED: Naloxone 0.4 MG/ML INJ IVP PRN (17:51)
[2020-07-02] MEDS ORDERED: *HR* HYDROcodone/Acet 5/325 mg TABLET PO PRN (17:51)
[2020-07-02] MEDS ORDERED: Ondansetron 4 MG/2 ML VIAL IVP PRN (17:51)
[2020-07-02 18:17] LABS: Chol/HDL Ratio 3.8 (0-4.9); Cholesterol 95 mg/dL (< 200); HDL Cholesterol 25 mg/dL (40-59); LDL Cholesterol,Calculated 25 mg/dL (< 100); Triglycerides 225 mg/dL (< 150)
[2020-07-02] MEDS ORDERED: Dexamethasone 4 MG/ML VIAL IVP ONE (18:46)
[2020-07-02] MEDS ORDERED: *HR* Dextrose 50 % in Water (Vial) 50 ML VIAL IVP PRN (18:50)
[2020-07-02] MEDS ORDERED: Dextrose Gel 15 GM/37.5 ML TUBE PO PRN ×2 (18:50)
[2020-07-02] MEDS ORDERED: D5% in Water 1,000 ML IVC PRN (18:50)
[2020-07-02] MEDS: 0.9 % Sodium Chloride 1,000 ML IVC SCH ×2 (20:49→23:17)
[2020-07-02] MEDS ORDERED: Remdesivir 200 MG (Bolus) in 0.9 % Sodium Chloride 250 ML IVPB ONE (21:00)
[2020-07-02] MEDS: Ipratropium 1 PUFF INHALER IH SCH ×2 (21:00→23:33)
[2020-07-02] MEDS: ALPRAZolam 1 MG TABLET PO PRN (21:13)
[2020-07-02] MEDS: Insulin LISPRO 300 UNITS/3 ML VIAL SQ SCH (21:13)
[2020-07-03 02:22] LABS: Bilirubin,Urine Negative (Negative); Blood,Urine Negative (Negative); Clarity,Urine Clear (Clear); Color,Urine Light-Yellow (Yellow); Glucose,Urine (UA) Normal (Normal); Hyaline Casts,Urine Few per lpf (None Seen); Ketones,Urine Trace mg/dL (Negative); Leukocyte Esterase,Urine Negative (Negative); Mucus,Urine Few per lpf (None-Few); Nitrite,Urine Negative (Negative); Protein,Urine 50 mg/dL (Neg-Trace); RBC,Urine 0-3 per hpf (0-3); Specific Gravity,Urine > 1.030 (1.010-1.025); Squamous Epithelial Cell,Urine Few per hpf (None-Few); Urobilinogen,Urine Normal (Normal)
[2020-07-03] MEDS: 0.9 % Sodium Chloride 1,000 ML IVC SCH (05:10)
[2020-07-03] MEDS: Ipratropium 1 PUFF INHALER IH SCH ×6 (05:13→23:53)
[2020-07-03] MEDS ORDERED: *HR* Enoxaparin 40 MG/0.4 ML SYRINGE SQ SCH (06:00)
[2020-07-03] MEDS: ALPRAZolam 1 MG TABLET PO PRN (07:49)
[2020-07-03] MEDS ORDERED: levoFLOXacin 750 MG TABLET PO SCH (09:00)
[2020-07-03] MEDS ORDERED: Furosemide 40 MG/4 ML VIAL IVP SCH (09:00)
[2020-07-03] MEDS: Acetaminophen 325 MG TABLET PO PRN (09:05)
[2020-07-03] MEDS: Insulin LISPRO 300 UNITS/3 ML VIAL SQ SCH ×4 (09:06→21:34)
[2020-07-03] MEDS: Dexamethasone Sodium Phos/PF 10 MG/ML VIAL IVP SCH (09:07)
[2020-07-03] MEDS ORDERED: NON-FORMULARY MEDICATION 1 EACH EACH (Hydroxyzine Hcl [Hydroxyzine Hcl] 50 MG) PO PRN (09:16)
[2020-07-03] MEDS ORDERED: NON-FORMULARY MEDICATION 1 EACH EACH (Midodrine Hcl 2.5 MG) PO SCH (09:30)
[2020-07-03 10:41] LABS: Basophils % 0.1 %; Hematocrit 38.5 % (37.5-50.1); Hemoglobin 12.6 g/dL (12.9-16.9); Immature Granulocytes % 0.5 % (0-4); Lymphocytes # 1.5 K/mcL (0.6-4.6); Lymphocytes % 15.6 %; Mean Corpuscular HGB Conc 32.7 g/dL (31.6-35.5); Mean Corpuscular Hemoglobin 28.5 pg (28.0-33.3); Mean Corpuscular Volume 87.1 fL (83.0-100.0); Mean Platelet Volume 10.5 fL (9.4-12.4); Monocytes # 0.9 K/mcL (0.0-1.3); Monocytes % 9.1 %; Neutrophils # 7.3 K/mcL (1.6-8.9); Platelet Count 241 K/mcL (140-400); Red Blood Count 4.42 M/mcL (4.19-5.50); Red Cell Distribution Width 12.4 % (11.5-14.5); Segmented Neutrophils % 74.7 %
[2020-07-03 10:43] LABS: White Blood Count 9.7 K/mcL (4.3-11.1)
[2020-07-03] MEDS: CarBAMazepine XR (12 hr) 100 MG TAB PO SCH ×2 (10:51→21:31)
[2020-07-03] MEDS: hydrOXYzine pamoate 25 MG CAPSULE PO PRN (10:51)
[2020-07-03 10:52] LABS: INR 1.2; Prothrombin Time 13.7 Seconds (9.4-12.1)
[2020-07-03] MEDS: cefTRIAXone 1,000 MG in Water for inj. (sterile) 10 ML IVP SCH (10:52)
[2020-07-03] MEDS: haloperidoL 5 MG TABLET PO SCH ×2 (10:52→21:30)
[2020-07-03 11:00] LABS: Alanine Aminotransferase 67 Units/L (7-52); Albumin/Globulin Ratio 1.2 (1.1-2.2); Alkaline Phosphatase 94 Units/L (34-104); Aspartate Amino Transferase 96 Units/L (13-39); BUN/Creatinine Ratio 27 (6-26); Bilirubin,Total 0.3 mg/dL (0.3-1.0); Blood Urea Nitrogen 29 mg/dL (6-20); Calcium 8.6 mg/dL (8.6-10.3); Carbon Dioxide 19 mEq/L (23-29); Chloride 108 mEq/L (98-107); Globulin 3.4 g/dL (2.4-3.5); Glucose 99 mg/dL (70-105); Magnesium 1.1 mg/dL (1.6-2.6); Osmolality,Calculated 294 (280-300); Phosphorous 1.4 mg/dL (2.7-4.5); Potassium 4.6 mEq/L (3.5-5.1); Sodium 139 mEq/L (136-145); Total Protein 7.4 g/dL (6.4-8.9); eGFR For African Americans > 60 (> 60); eGFR For Non-African Americans > 60 (> 60)
[2020-07-03 11:01] LABS: % Iron Saturation 9 % (20-55); C-Reactive Protein 145 mg/L (Less than 10); Iron 26 mcg/dL (65-175); Lactate Dehydrogenase 545 Units/L (140-271); Transferrin 204 mg/dL (203-362)
[2020-07-03 11:20] LABS: Ferritin 584 ng/mL (20-250)
[2020-07-03 11:38] LABS: Folate > 22.3 ng/mL (3.0-16.0); Vitamin B12 412 pg/mL (250-1100)
[2020-07-03 12:27] LABS: Estimated Average Glucose 163 mg/dl; Hemoglobin A1C 7.3 %
[2020-07-03] MEDS ORDERED: 0.9 % Sodium Chloride 250 ML ONE (15:45)
[2020-07-03] MEDS: *HR* Heparin 5,000 UNIT/ML VIAL SQ SCH (16:46)
[2020-07-03 17:29] LABS: Acinetobacter baumannii by PCR Not Detected (Not Detect); Candida albicans by PCR Not Detected (Not Detect); Candida glabrata by PCR Not Detected (Not Detect); Candida krusei by PCR Not Detected (Not Detect); Candida parapsilosis by PCR Not Detected (Not Detect); Candida tropicalis by PCR Not Detected (Not Detect); Enterobacter cloacae Cmplx PCR Not Detected (Not Detect); Enterobacteriaceae by PCR Not Detected (Not Detect); Enterococcus by PCR Not Detected (Not Detect); Escherichia coli by PCR Not Detected (Not Detect); Klebsiella oxytoca by PCR Not Detected (Not Detect); Klebsiella pneumoniae by PCR Not Detected (Not Detect); Proteus by PCR Not Detected (Not Detect); Pseudomonas aeruginosa by PCR Not Detected (Not Detect); Serratia marcescens by PCR Not Detected (Not Detect); Staphylococcus aureus by PCR Not Detected (Not Detect); Staphylococcus by PCR DETECTED (Not Detect); Streptococcus agalactiae(B)PCR Not Detected (Not Detect); Streptococcus by PCR Not Detected (Not Detect); Streptococcus pneumoniae PCR Not Detected (Not Detect); Streptococcus pyogenes (A) PCR Not Detected (Not Detect); mecA Methicillin-Resist Gene DETECTED (Not Detect)
[2020-07-03] MEDS: Vancomycin 1,250 MG/262.5 ML IV.SOLN IVPB SCH (18:10)
[2020-07-03] MEDS ORDERED: Dexamethasone 4 MG/ML VIAL IVP SCH (18:15)
[2020-07-03] MEDS ORDERED: Gabapentin 300 MG CAPSULE PO SCH (21:00)
[2020-07-03] MEDS ORDERED: PRAZOSIN HCL 10 MG PO SCH (21:00)
[2020-07-03] MEDS ORDERED: DOXEPIN HCL 50 MG PO SCH (21:00)
[2020-07-03] MEDS ORDERED: QUEtiapine Fumarate 300 MG TABLET PO SCH (21:00)
[2020-07-03] MEDS: QUEtiapine Fumarate 300 MG TABLET PO SCH (21:29)
[2020-07-03] MEDS: Remdesivir 100 MG (x 4 Days) in 0.9 % Sodium Chloride 250 ML IVPB SCH (21:32)
[2020-07-04] MEDS: Ipratropium 1 PUFF INHALER IH SCH ×6 (03:26→23:08)
[2020-07-04] MEDS: Vancomycin 1,250 MG/262.5 ML IV.SOLN IVPB SCH ×2 (05:43→16:44)
[2020-07-04] MEDS: *HR* Heparin 5,000 UNIT/ML VIAL SQ SCH ×2 (05:43→16:43)
[2020-07-04 06:25] LABS: Basophils % 0.1 %; Hematocrit 32.3 % (37.5-50.1); Immature Granulocytes % 0.8 % (0-4); Lymphocytes % 13.5 %; Mean Corpuscular HGB Conc 32.8 g/dL (31.6-35.5); Mean Corpuscular Hemoglobin 28.8 pg (28.0-33.3); Mean Corpuscular Volume 87.8 fL (83.0-100.0); Mean Platelet Volume 10.2 fL (9.4-12.4); Monocytes # 0.5 K/mcL (0.0-1.3); Monocytes % 6.8 %; Neutrophils # 6.1 K/mcL (1.6-8.9); Platelet Count 242 K/mcL (140-400); Red Blood Count 3.68 M/mcL (4.19-5.50); Red Cell Distribution Width 12.6 % (11.5-14.5); Segmented Neutrophils % 78.8 %; White Blood Count 7.7 K/mcL (4.3-11.1)
[2020-07-04 06:30] LABS: Hemoglobin 10.6 g/dL (12.9-16.9)
[2020-07-04 06:35] LABS: INR 1.3
[2020-07-04 06:41] LABS: Alanine Aminotransferase 56 Units/L (7-52); Albumin 3.5 g/dL (3.5-5.7); Albumin/Globulin Ratio 1.2 (1.1-2.2); Alkaline Phosphatase 86 Units/L (34-104); Aspartate Amino Transferase 67 Units/L (13-39); BUN/Creatinine Ratio 32 (6-26); Bilirubin,Total 0.3 mg/dL (0.3-1.0); Blood Urea Nitrogen 24 mg/dL (6-20); Calcium 8.1 mg/dL (8.6-10.3); Carbon Dioxide 18 mEq/L (23-29); Chloride 112 mEq/L (98-107); Globulin 2.9 g/dL (2.4-3.5); Glucose 121 mg/dL (70-105); Lactate Dehydrogenase 436 Units/L (140-271); Osmolality,Calculated 297 (280-300); Potassium 4.4 mEq/L (3.5-5.1); Sodium 141 mEq/L (136-145); Total Protein 6.4 g/dL (6.4-8.9); eGFR For African Americans > 60 (> 60); eGFR For Non-African Americans > 60 (> 60)
[2020-07-04 07:00] LABS: Ferritin 504 ng/mL (20-250)
[2020-07-04 08:57] LABS: C-Reactive Protein 134 mg/L (Less than 10)
[2020-07-04] MEDS: Insulin LISPRO 300 UNITS/3 ML VIAL SQ SCH ×4 (09:12→21:14)
[2020-07-04] MEDS: CarBAMazepine XR (12 hr) 100 MG TAB PO SCH ×2 (09:23→21:18)
[2020-07-04] MEDS: haloperidoL 5 MG TABLET PO SCH ×2 (09:24→21:13)
[2020-07-04] MEDS: Dexamethasone Sodium Phos/PF 10 MG/ML VIAL IVP SCH (09:24)
[2020-07-04] MEDS: Furosemide 20 MG TABLET PO SCH (09:24)
[2020-07-04] MEDS: cefTRIAXone 1,000 MG in Water for inj. (sterile) 10 ML IVP SCH (09:25)
[2020-07-04 12:13] LABS: Magnesium 1.8 mg/dL (1.6-2.6); Phosphorous 3.1 mg/dL (2.7-4.5)
[2020-07-04] MEDS: QUEtiapine Fumarate 300 MG TABLET PO SCH (21:12)
[2020-07-04] MEDS: Remdesivir 100 MG (x 4 Days) in 0.9 % Sodium Chloride 250 ML IVPB SCH (21:15)
[2020-07-05] MEDS: Ipratropium 1 PUFF INHALER IH SCH ×6 (03:25→23:13)
[2020-07-05 04:41] LABS: Hematocrit 32.6 % (37.5-50.1); Immature Granulocytes % 0.9 % (0-4); Lymphocytes # 1.5 K/mcL (0.6-4.6); Lymphocytes % 17.9 %; Mean Corpuscular HGB Conc 33.7 g/dL (31.6-35.5); Mean Corpuscular Hemoglobin 29.2 pg (28.0-33.3); Mean Corpuscular Volume 86.5 fL (83.0-100.0); Mean Platelet Volume 9.8 fL (9.4-12.4); Monocytes # 0.6 K/mcL (0.0-1.3); Monocytes % 7.8 %; Platelet Count 261 K/mcL (140-400); Red Blood Count 3.77 M/mcL (4.19-5.50); Red Cell Distribution Width 12.3 % (11.5-14.5); Segmented Neutrophils % 73.4 %; White Blood Count 8.1 K/mcL (4.3-11.1)
[2020-07-05] MEDS ORDERED: Vancomycin 1,500 MG/265 ML IV.SOLN IVPB SCH (05:00)
[2020-07-05 05:02] LABS: Alanine Aminotransferase 53 Units/L (7-52); Albumin 3.3 g/dL (3.5-5.7); Albumin/Globulin Ratio 1.2 (1.1-2.2); Alkaline Phosphatase 87 Units/L (34-104); Aspartate Amino Transferase 59 Units/L (13-39); BUN/Creatinine Ratio 25 (6-26); Bilirubin,Total 0.4 mg/dL (0.3-1.0); Blood Urea Nitrogen 19 mg/dL (6-20); C-Reactive Protein 112 mg/L (Less than 10); Calcium 7.8 mg/dL (8.6-10.3); Carbon Dioxide 19 mEq/L (23-29); Chloride 108 mEq/L (98-107); Globulin 2.7 g/dL (2.4-3.5); Glucose 101 mg/dL (70-105); Lactate Dehydrogenase 469 Units/L (140-271); Magnesium 1.2 mg/dL (1.6-2.6); Osmolality,Calculated 290 (280-300); Phosphorous < 1.0 mg/dL (2.7-4.5); Potassium 3.7 mEq/L (3.5-5.1); Sodium 139 mEq/L (136-145); eGFR For African Americans > 60 (> 60); eGFR For Non-African Americans > 60 (> 60)
[2020-07-05 05:04] LABS: INR 1.3; Prothrombin Time 14.8 Seconds (9.4-12.1)
[2020-07-05 05:16] LABS: Ferritin 435 ng/mL (20-250)
[2020-07-05] MEDS: *HR* Heparin 5,000 UNIT/ML VIAL SQ SCH (05:22)
[2020-07-05] MEDS ORDERED: Potassium Phosphate 44 MEQ in 0.9 % Sodium Chloride 250 ML IVPB ONE (05:30)
[2020-07-05] MEDS: Insulin LISPRO 300 UNITS/3 ML VIAL SQ SCH ×4 (07:43→22:41)
[2020-07-05] MEDS: Furosemide 20 MG TABLET PO SCH (07:59)
[2020-07-05] MEDS: CarBAMazepine XR (12 hr) 100 MG TAB PO SCH ×2 (07:59→21:23)
[2020-07-05] MEDS: haloperidoL 5 MG TABLET PO SCH ×2 (07:59→21:22)
[2020-07-05] MEDS: Dexamethasone Sodium Phos/PF 10 MG/ML VIAL IVP SCH (08:00)
[2020-07-05] MEDS: cefTRIAXone 1,000 MG in Water for inj. (sterile) 10 ML IVP SCH (08:01)
[2020-07-05] MEDS: Remdesivir 100 MG (x 4 Days) in 0.9 % Sodium Chloride 250 ML IVPB SCH (21:21)
[2020-07-05] MEDS: QUEtiapine Fumarate 300 MG TABLET PO SCH (21:22)
[2020-07-06] MEDS: Ipratropium 1 PUFF INHALER IH SCH ×6 (03:27→23:31)
[2020-07-06] MEDS: ALPRAZolam 1 MG TABLET PO PRN (04:09)
[2020-07-06 04:54] LABS: INR 1.3; Prothrombin Time 14.9 Seconds (9.4-12.1)
[2020-07-06 05:07] LABS: Basophils % 0.2 %; Eosinophils % 0.1 %; Hematocrit 33.9 % (37.5-50.1); Hemoglobin 11.4 g/dL (12.9-16.9); Immature Granulocytes % 0.7 % (0-4); Lymphocytes # 1.6 K/mcL (0.6-4.6); Lymphocytes % 14.3 %; Mean Corpuscular HGB Conc 33.6 g/dL (31.6-35.5); Mean Corpuscular Hemoglobin 28.9 pg (28.0-33.3); Mean Corpuscular Volume 85.8 fL (83.0-100.0); Mean Platelet Volume 10.1 fL (9.4-12.4); Monocytes # 0.8 K/mcL (0.0-1.3); Monocytes % 7.5 %; Neutrophils # 8.6 K/mcL (1.6-8.9); Platelet Count 329 K/mcL (140-400); Red Blood Count 3.95 M/mcL (4.19-5.50); Red Cell Distribution Width 12.4 % (11.5-14.5); Segmented Neutrophils % 77.2 %; White Blood Count 11.1 K/mcL (4.3-11.1)
[2020-07-06 05:19] LABS: Alanine Aminotransferase 58 Units/L (7-52); Albumin 3.5 g/dL (3.5-5.7); Albumin/Globulin Ratio 1.1 (1.1-2.2); Alkaline Phosphatase 103 Units/L (34-104); Aspartate Amino Transferase 58 Units/L (13-39); BUN/Creatinine Ratio 21 (6-26); Bilirubin,Total 0.4 mg/dL (0.3-1.0); Blood Urea Nitrogen 16 mg/dL (6-20); Calcium 8.3 mg/dL (8.6-10.3); Carbon Dioxide 20 mEq/L (23-29); Chloride 105 mEq/L (98-107); Globulin 3.3 g/dL (2.4-3.5); Glucose 120 mg/dL (70-105); Osmolality,Calculated 288 (280-300); Potassium 3.7 mEq/L (3.5-5.1); Sodium 138 mEq/L (136-145); Total Protein 6.8 g/dL (6.4-8.9); eGFR For African Americans > 60 (> 60); eGFR For Non-African Americans > 60 (> 60)
[2020-07-06] MEDS: *HR* Enoxaparin 40 MG/0.4 ML SYRINGE SQ SCH (06:22)
[2020-07-06] MEDS: Insulin LISPRO 300 UNITS/3 ML VIAL SQ SCH ×4 (07:30→20:47)
[2020-07-06] MEDS: Furosemide 20 MG TABLET PO SCH (08:08)
[2020-07-06] MEDS: haloperidoL 5 MG TABLET PO SCH ×2 (08:08→20:24)
[2020-07-06] MEDS: CarBAMazepine XR (12 hr) 100 MG TAB PO SCH ×3 (08:09→20:27)
[2020-07-06] MEDS: Dexamethasone Sodium Phos/PF 10 MG/ML VIAL IVP SCH (08:10)
[2020-07-06] MEDS: cefTRIAXone 1,000 MG in Water for inj. (sterile) 10 ML IVP SCH (08:11)
[2020-07-06 08:31] LABS: Magnesium 1.4 mg/dL (1.6-2.6); Phosphorous 2.5 mg/dL (2.7-4.5)
[2020-07-06] MEDS ORDERED: Potassium Phosphate 44 MEQ in 0.9 % Sodium Chloride 250 ML IVPB ONE (10:16)
[2020-07-06] MEDS: Furosemide 20 MG/2 ML VIAL IVP SCH (17:00)
[2020-07-06] MEDS: Remdesivir 100 MG (x 4 Days) in 0.9 % Sodium Chloride 250 ML IVPB SCH (20:25)
[2020-07-06] MEDS: QUEtiapine Fumarate 300 MG TABLET PO SCH (20:26)
[2020-07-07] MEDS: Ipratropium 1 PUFF INHALER IH SCH ×6 (03:52→23:28)
[2020-07-07] MEDS: Acetaminophen 325 MG TABLET PO PRN (05:00)
[2020-07-07] MEDS: *HR* Enoxaparin 40 MG/0.4 ML SYRINGE SQ SCH (05:00)
[2020-07-07 05:31] LABS: BUN/Creatinine Ratio 22 (6-26); Blood Urea Nitrogen 14 mg/dL (6-20); Calcium 7.9 mg/dL (8.6-10.3); Carbon Dioxide 21 mEq/L (23-29); Chloride 105 mEq/L (98-107); Glucose 99 mg/dL (70-105); Magnesium 1.7 mg/dL (1.6-2.6); Osmolality,Calculated 287 (280-300); Phosphorous 2.6 mg/dL (2.7-4.5); Potassium 3.5 mEq/L (3.5-5.1); Sodium 138 mEq/L (136-145); eGFR For African Americans > 60 (> 60); eGFR For Non-African Americans > 60 (> 60)
[2020-07-07] MEDS: Insulin LISPRO 300 UNITS/3 ML VIAL SQ SCH ×4 (08:56→22:14)
[2020-07-07] MEDS: Dexamethasone Sodium Phos/PF 10 MG/ML VIAL IVP SCH (08:59)
[2020-07-07] MEDS: Furosemide 20 MG/2 ML VIAL IVP SCH (09:00)
[2020-07-07] MEDS: cefTRIAXone 1,000 MG in Water for inj. (sterile) 10 ML IVP SCH (09:01)
[2020-07-07] MEDS: haloperidoL 5 MG TABLET PO SCH ×2 (09:04→20:47)
[2020-07-07] MEDS: CarBAMazepine XR (12 hr) 100 MG TAB PO SCH (20:45)
[2020-07-07] MEDS: QUEtiapine Fumarate 300 MG TABLET PO SCH (20:48)
[2020-07-07] MEDS: 0.9 % Sodium Chloride 1,000 ML IVC SCH (22:07)
[2020-07-07] MEDS: Vancomycin 1,250 MG/262.5 ML IV.SOLN IVPB SCH (22:07)
[2020-07-08 03:03] LABS: Basophils % 0.2 %; Eosinophils # 0.1 K/mcL (0.0-0.6); Hematocrit 32.5 % (37.5-50.1); Hemoglobin 10.8 g/dL (12.9-16.9); Immature Granulocytes % 1.4 % (0-4); Lymphocytes % 16.1 %; Mean Corpuscular HGB Conc 33.2 g/dL (31.6-35.5); Mean Corpuscular Hemoglobin 28.3 pg (28.0-33.3); Mean Corpuscular Volume 85.1 fL (83.0-100.0); Mean Platelet Volume 9.6 fL (9.4-12.4); Neutrophils # 8.9 K/mcL (1.6-8.9); Platelet Count 326 K/mcL (140-400); Red Blood Count 3.82 M/mcL (4.19-5.50); Red Cell Distribution Width 12.4 % (11.5-14.5); Segmented Neutrophils % 73.3 %; White Blood Count 12.2 K/mcL (4.3-11.1)
[2020-07-08 03:26] LABS: Alanine Aminotransferase 54 Units/L (7-52); Albumin 3.2 g/dL (3.5-5.7); Albumin/Globulin Ratio 0.9 (1.1-2.2); Alkaline Phosphatase 88 Units/L (34-104); Aspartate Amino Transferase 40 Units/L (13-39); BUN/Creatinine Ratio 22 (6-26); Bilirubin,Total 0.4 mg/dL (0.3-1.0); Blood Urea Nitrogen 15 mg/dL (6-20); C-Reactive Protein 226 mg/L (Less than 10); Calcium 8.1 mg/dL (8.6-10.3); Carbon Dioxide 22 mEq/L (23-29); Chloride 102 mEq/L (98-107); Globulin 3.5 g/dL (2.4-3.5); Glucose 92 mg/dL (70-105); Lactate Dehydrogenase 419 Units/L (140-271); Osmolality,Calculated 284 (280-300); Potassium 3.1 mEq/L (3.5-5.1); Sodium 137 mEq/L (136-145); Total Protein 6.7 g/dL (6.4-8.9); eGFR For African Americans > 60 (> 60); eGFR For Non-African Americans > 60 (> 60)
[2020-07-08 03:43] LABS: Ferritin 162 ng/mL (20-250)
[2020-07-08] MEDS: Ipratropium 1 PUFF INHALER IH SCH ×5 (04:21→20:03)
[2020-07-08] MEDS: *HR* Enoxaparin 40 MG/0.4 ML SYRINGE SQ SCH (04:33)
[2020-07-08] MEDS ORDERED: *HR* Enoxaparin 60 MG/0.6 ML SYRINGE SQ ONE (07:18)
[2020-07-08] MEDS: haloperidoL 5 MG TABLET PO SCH ×2 (08:33→22:25)
[2020-07-08] MEDS: CarBAMazepine XR (12 hr) 100 MG TAB PO SCH ×2 (08:34→22:25)
[2020-07-08] MEDS: Dexamethasone Sodium Phos/PF 10 MG/ML VIAL IVP SCH (08:36)
[2020-07-08] MEDS: Furosemide 20 MG/2 ML VIAL IVP SCH ×2 (08:36→08:45)
[2020-07-08] MEDS: Insulin LISPRO 300 UNITS/3 ML VIAL SQ SCH ×4 (08:41→22:15)
[2020-07-08] MEDS: *HR* Enoxaparin 100 MG/ML SYRINGE SQ SCH (17:08)
[2020-07-08] MEDS: QUEtiapine Fumarate 300 MG TABLET PO SCH (22:25)
[2020-07-09] MEDS: Ipratropium 1 PUFF INHALER IH SCH ×6 (00:06→19:58)
[2020-07-09] MEDS: Acetaminophen 325 MG TABLET PO PRN (03:25)
[2020-07-09 05:11] LABS: Basophils % 0.3 %; Eosinophils # 0.2 K/mcL (0.0-0.6); Eosinophils % 1.5 %; Hemoglobin 10.7 g/dL (12.9-16.9); Lymphocytes # 2.1 K/mcL (0.6-4.6); Lymphocytes % 19.8 %; Mean Corpuscular HGB Conc 32.4 g/dL (31.6-35.5); Mean Corpuscular Hemoglobin 28.1 pg (28.0-33.3); Mean Corpuscular Volume 86.6 fL (83.0-100.0); Mean Platelet Volume 9.8 fL (9.4-12.4); Monocytes # 0.9 K/mcL (0.0-1.3); Monocytes % 8.9 %; Neutrophils # 7.2 K/mcL (1.6-8.9); Platelet Count 341 K/mcL (140-400); Red Blood Count 3.81 M/mcL (4.19-5.50); Red Cell Distribution Width 12.2 % (11.5-14.5); Segmented Neutrophils % 67.5 %; White Blood Count 10.6 K/mcL (4.3-11.1)
[2020-07-09] MEDS: *HR* Enoxaparin 100 MG/ML SYRINGE SQ SCH (05:35)
[2020-07-09 05:37] LABS: Alanine Aminotransferase 70 Units/L (7-52); Albumin 3.2 g/dL (3.5-5.7); Albumin/Globulin Ratio 0.8 (1.1-2.2); Alkaline Phosphatase 98 Units/L (34-104); Aspartate Amino Transferase 59 Units/L (13-39); BUN/Creatinine Ratio 25 (6-26); Bilirubin,Total 0.4 mg/dL (0.3-1.0); Blood Urea Nitrogen 19 mg/dL (6-20); Calcium 8.7 mg/dL (8.6-10.3); Carbon Dioxide 23 mEq/L (23-29); Chloride 101 mEq/L (98-107); Globulin 3.8 g/dL (2.4-3.5); Glucose 104 mg/dL (70-105); Osmolality,Calculated 283 (280-300); Potassium 3.4 mEq/L (3.5-5.1); Sodium 135 mEq/L (136-145); eGFR For African Americans > 60 (> 60); eGFR For Non-African Americans > 60 (> 60)
[2020-07-09] MEDS: Insulin LISPRO 300 UNITS/3 ML VIAL SQ SCH ×4 (07:59→21:42)
[2020-07-09] MEDS: Furosemide 20 MG/2 ML VIAL IVP SCH ×2 (08:02→11:25)
[2020-07-09] MEDS: Dexamethasone Sodium Phos/PF 10 MG/ML VIAL IVP SCH (08:08)
[2020-07-09] MEDS: CarBAMazepine XR (12 hr) 100 MG TAB PO SCH ×2 (08:09→20:04)
[2020-07-09] MEDS: haloperidoL 5 MG TABLET PO SCH ×2 (08:09→20:03)
[2020-07-09] MEDS: ALPRAZolam 1 MG TABLET PO PRN (18:51)
[2020-07-09] MEDS: QUEtiapine Fumarate 300 MG TABLET PO SCH (20:04)
[2020-07-10] MEDS: Ipratropium 1 PUFF INHALER IH SCH ×7 (00:33→23:24)
[2020-07-10 01:25] LABS: Basophils % 0.3 %; Eosinophils # 0.2 K/mcL (0.0-0.6); Eosinophils % 1.8 %; Hematocrit 34.3 % (37.5-50.1); Hemoglobin 11.4 g/dL (12.9-16.9); Immature Granulocytes % 2.2 % (0-4); Lymphocytes # 2.1 K/mcL (0.6-4.6); Lymphocytes % 20.1 %; Mean Corpuscular HGB Conc 33.2 g/dL (31.6-35.5); Mean Corpuscular Hemoglobin 28.4 pg (28.0-33.3); Mean Corpuscular Volume 85.3 fL (83.0-100.0); Mean Platelet Volume 9.5 fL (9.4-12.4); Monocytes # 0.8 K/mcL (0.0-1.3); Monocytes % 8.1 %; Neutrophils # 6.9 K/mcL (1.6-8.9); Platelet Count 332 K/mcL (140-400); Red Blood Count 4.02 M/mcL (4.19-5.50); Red Cell Distribution Width 11.9 % (11.5-14.5); Segmented Neutrophils % 67.5 %; White Blood Count 10.2 K/mcL (4.3-11.1)
[2020-07-10 01:45] LABS: Alanine Aminotransferase 74 Units/L (7-52); Albumin 3.2 g/dL (3.5-5.7); Albumin/Globulin Ratio 0.8 (1.1-2.2); Alkaline Phosphatase 104 Units/L (34-104); Aspartate Amino Transferase 49 Units/L (13-39); BUN/Creatinine Ratio 28 (6-26); Bilirubin,Total 0.4 mg/dL (0.3-1.0); Blood Urea Nitrogen 18 mg/dL (6-20); C-Reactive Protein 199 mg/L (Less than 10); Calcium 8.7 mg/dL (8.6-10.3); Carbon Dioxide 24 mEq/L (23-29); Chloride 97 mEq/L (98-107); Globulin 4.1 g/dL (2.4-3.5); Glucose 167 mg/dL (70-105); Lactate Dehydrogenase 317 Units/L (140-271); Osmolality,Calculated 282 (280-300); Potassium 3.5 mEq/L (3.5-5.1); Sodium 133 mEq/L (136-145); Total Protein 7.3 g/dL (6.4-8.9); eGFR For African Americans > 60 (> 60); eGFR For Non-African Americans > 60 (> 60)
[2020-07-10 02:02] LABS: Ferritin 289 ng/mL (20-250)
[2020-07-10] MEDS: *HR* Enoxaparin 40 MG/0.4 ML SYRINGE SQ SCH (05:19)
[2020-07-10] MEDS: CarBAMazepine XR (12 hr) 100 MG TAB PO SCH ×2 (07:42→19:58)
[2020-07-10] MEDS: haloperidoL 5 MG TABLET PO SCH ×2 (07:42→19:58)
[2020-07-10] MEDS: Dexamethasone Sodium Phos/PF 10 MG/ML VIAL IVP SCH (07:43)
[2020-07-10] MEDS: Furosemide 20 MG/2 ML VIAL IVP SCH ×2 (07:43→17:03)
[2020-07-10] MEDS: Insulin LISPRO 300 UNITS/3 ML VIAL SQ SCH ×4 (07:44→19:59)
[2020-07-10] MEDS: QUEtiapine Fumarate 300 MG TABLET PO SCH (19:58)
[2020-07-11] MEDS: Ipratropium 1 PUFF INHALER IH SCH ×5 (03:27→19:46)
[2020-07-11] MEDS: *HR* Enoxaparin 40 MG/0.4 ML SYRINGE SQ SCH (05:00)
[2020-07-11 07:29] LABS: Basophils # 0.1 K/mcL (0.0-0.2); Basophils % 0.5 %; Eosinophils # 0.2 K/mcL (0.0-0.6); Hematocrit 37.3 % (37.5-50.1); Hemoglobin 12.3 g/dL (12.9-16.9); Immature Granulocytes % 2.4 % (0-4); Lymphocytes # 2.3 K/mcL (0.6-4.6); Lymphocytes % 19.2 %; Mean Corpuscular Hemoglobin 28.4 pg (28.0-33.3); Mean Corpuscular Volume 86.1 fL (83.0-100.0); Mean Platelet Volume 10.1 fL (9.4-12.4); Monocytes # 1.1 K/mcL (0.0-1.3); Monocytes % 9.5 %; Platelet Count 306 K/mcL (140-400); Red Blood Count 4.33 M/mcL (4.19-5.50); Segmented Neutrophils % 66.4 %
[2020-07-11 07:48] LABS: Alanine Aminotransferase 74 Units/L (7-52); Albumin 3.4 g/dL (3.5-5.7); Albumin/Globulin Ratio 0.8 (1.1-2.2); Alkaline Phosphatase 124 Units/L (34-104); Aspartate Amino Transferase 48 Units/L (13-39); BUN/Creatinine Ratio 30 (6-26); Bilirubin,Total 0.4 mg/dL (0.3-1.0); Blood Urea Nitrogen 24 mg/dL (6-20); Calcium 9.1 mg/dL (8.6-10.3); Carbon Dioxide 25 mEq/L (23-29); Chloride 97 mEq/L (98-107); Globulin 4.4 g/dL (2.4-3.5); Glucose 135 mg/dL (70-105); Osmolality,Calculated 284 (280-300); Potassium 3.8 mEq/L (3.5-5.1); Sodium 134 mEq/L (136-145); Total Protein 7.8 g/dL (6.4-8.9); eGFR For African Americans > 60 (> 60); eGFR For Non-African Americans > 60 (> 60)
[2020-07-11] MEDS: haloperidoL 5 MG TABLET PO SCH ×2 (08:13→19:43)
[2020-07-11] MEDS: CarBAMazepine XR (12 hr) 100 MG TAB PO SCH ×2 (08:13→19:44)
[2020-07-11] MEDS: Dexamethasone Sodium Phos/PF 10 MG/ML VIAL IVP SCH (08:14)
[2020-07-11] MEDS: Insulin LISPRO 300 UNITS/3 ML VIAL SQ SCH ×4 (08:15→20:45)
[2020-07-11] MEDS: Furosemide 20 MG/2 ML VIAL IVP SCH ×2 (08:16→16:39)
[2020-07-11] MEDS: QUEtiapine Fumarate 300 MG TABLET PO SCH (19:44)
[2020-07-12] MEDS: Ipratropium 1 PUFF INHALER IH SCH ×6 (00:21→19:53)
[2020-07-12] MEDS: *HR* Enoxaparin 40 MG/0.4 ML SYRINGE SQ SCH (04:49)
[2020-07-12 05:12] LABS: Basophils # 0.1 K/mcL (0.0-0.2); Basophils % 0.5 %; Eosinophils # 0.2 K/mcL (0.0-0.6); Eosinophils % 1.7 %; Hemoglobin 12.9 g/dL (12.9-16.9); Immature Granulocytes % 2.4 % (0-4); Lymphocytes # 2.5 K/mcL (0.6-4.6); Lymphocytes % 19.1 %; Mean Corpuscular HGB Conc 33.1 g/dL (31.6-35.5); Mean Corpuscular Hemoglobin 28.7 pg (28.0-33.3); Mean Corpuscular Volume 86.7 fL (83.0-100.0); Mean Platelet Volume 10.1 fL (9.4-12.4); Monocytes # 1.1 K/mcL (0.0-1.3); Neutrophils # 8.9 K/mcL (1.6-8.9); Platelet Count 331 K/mcL (140-400); Red Cell Distribution Width 11.9 % (11.5-14.5); Segmented Neutrophils % 68.3 %; White Blood Count 13.1 K/mcL (4.3-11.1)
[2020-07-12 05:34] LABS: Alanine Aminotransferase 81 Units/L (7-52); Albumin 3.5 g/dL (3.5-5.7); Albumin/Globulin Ratio 0.7 (1.1-2.2); Alkaline Phosphatase 131 Units/L (34-104); Aspartate Amino Transferase 49 Units/L (13-39); BUN/Creatinine Ratio 42 (6-26); Bilirubin,Total 0.4 mg/dL (0.3-1.0); Blood Urea Nitrogen 35 mg/dL (6-20); C-Reactive Protein 103 mg/L (Less than 10); Calcium 9.2 mg/dL (8.6-10.3); Carbon Dioxide 22 mEq/L (23-29); Chloride 95 mEq/L (98-107); Globulin 4.7 g/dL (2.4-3.5); Glucose 120 mg/dL (70-105); Lactate Dehydrogenase 344 Units/L (140-271); Osmolality,Calculated 283 (280-300); Potassium 4.3 mEq/L (3.5-5.1); Sodium 132 mEq/L (136-145); Total Protein 8.2 g/dL (6.4-8.9); eGFR For African Americans > 60 (> 60); eGFR For Non-African Americans > 60 (> 60)
[2020-07-12 05:51] LABS: Ferritin 253 ng/mL (20-250)
[2020-07-12] MEDS: Insulin LISPRO 300 UNITS/3 ML VIAL SQ SCH ×4 (09:34→22:09)
[2020-07-12] MEDS: CarBAMazepine XR (12 hr) 100 MG TAB PO SCH ×2 (09:50→22:09)
[2020-07-12] MEDS: haloperidoL 5 MG TABLET PO SCH ×2 (09:50→22:06)
[2020-07-12] MEDS: Furosemide 20 MG/2 ML VIAL IVP SCH ×2 (11:00→17:01)
[2020-07-12] MEDS: Dexamethasone Sodium Phos/PF 10 MG/ML VIAL IVP SCH (11:00)
[2020-07-12] MEDS: ALPRAZolam 1 MG TABLET PO PRN (18:26)
[2020-07-12] MEDS: QUEtiapine Fumarate 300 MG TABLET PO SCH (22:05)
[2020-07-12] MEDS: hydrOXYzine pamoate 25 MG CAPSULE PO PRN (22:23)
[2020-07-13] MEDS: Ipratropium 1 PUFF INHALER IH SCH ×7 (00:05→23:30)
[2020-07-13 02:12] LABS: Basophils % 0.2 %; Eosinophils # 0.2 K/mcL (0.0-0.6); Eosinophils % 1.4 %; Hematocrit 38.9 % (37.5-50.1); Hemoglobin 13.1 g/dL (12.9-16.9); Immature Granulocytes % 1.5 % (0-4); Lymphocytes # 2.3 K/mcL (0.6-4.6); Lymphocytes % 17.4 %; Mean Corpuscular HGB Conc 33.7 g/dL (31.6-35.5); Mean Corpuscular Volume 86.3 fL (83.0-100.0); Mean Platelet Volume 10.2 fL (9.4-12.4); Monocytes # 1.1 K/mcL (0.0-1.3); Monocytes % 8.2 %; Neutrophils # 9.2 K/mcL (1.6-8.9); Platelet Count 314 K/mcL (140-400); Red Blood Count 4.51 M/mcL (4.19-5.50); Red Cell Distribution Width 11.9 % (11.5-14.5); Segmented Neutrophils % 71.3 %
[2020-07-13 02:27] LABS: Alanine Aminotransferase 73 Units/L (7-52); Albumin 3.6 g/dL (3.5-5.7); Albumin/Globulin Ratio 0.8 (1.1-2.2); Alkaline Phosphatase 130 Units/L (34-104); Aspartate Amino Transferase 38 Units/L (13-39); BUN/Creatinine Ratio 45 (6-26); Bilirubin,Total 0.3 mg/dL (0.3-1.0); Blood Urea Nitrogen 40 mg/dL (6-20); Calcium 9.8 mg/dL (8.6-10.3); Carbon Dioxide 24 mEq/L (23-29); Chloride 93 mEq/L (98-107); Globulin 4.6 g/dL (2.4-3.5); Glucose 130 mg/dL (70-105); Osmolality,Calculated 286 (280-300); Sodium 132 mEq/L (136-145); Total Protein 8.2 g/dL (6.4-8.9); eGFR For African Americans > 60 (> 60); eGFR For Non-African Americans > 60 (> 60)
[2020-07-13] MEDS: *HR* Enoxaparin 40 MG/0.4 ML SYRINGE SQ SCH (05:33)
[2020-07-13] MEDS: Insulin LISPRO 300 UNITS/3 ML VIAL SQ SCH ×4 (09:35→19:46)
[2020-07-13] MEDS: Dexamethasone 4 MG/ML VIAL IVP SCH (09:42)
[2020-07-13] MEDS: CarBAMazepine XR (12 hr) 100 MG TAB PO SCH ×2 (09:42→19:44)
[2020-07-13] MEDS: Furosemide 20 MG/2 ML VIAL IVP SCH (09:45)
[2020-07-13] MEDS: haloperidoL 5 MG TABLET PO SCH ×2 (09:51→19:44)
[2020-07-13] MEDS: QUEtiapine Fumarate 300 MG TABLET PO SCH (19:45)
[2020-07-13] MEDS ORDERED: Furosemide 40 MG/4 ML VIAL IVP SCH (21:00)
[2020-07-14] MEDS: Ipratropium 1 PUFF INHALER IH SCH ×5 (03:21→20:21)
[2020-07-14] MEDS: *HR* Enoxaparin 40 MG/0.4 ML SYRINGE SQ SCH (05:10)
[2020-07-14 05:26] LABS: Basophils # 0.1 K/mcL (0.0-0.2); Basophils % 0.3 %; Eosinophils # 0.3 K/mcL (0.0-0.6); Eosinophils % 1.5 %; Hematocrit 39.7 % (37.5-50.1); Immature Granulocytes % 1.5 % (0-4); Lymphocytes # 2.6 K/mcL (0.6-4.6); Lymphocytes % 14.4 %; Mean Corpuscular HGB Conc 32.7 g/dL (31.6-35.5); Mean Corpuscular Hemoglobin 27.9 pg (28.0-33.3); Mean Corpuscular Volume 85.2 fL (83.0-100.0); Mean Platelet Volume 10.4 fL (9.4-12.4); Monocytes # 1.4 K/mcL (0.0-1.3); Monocytes % 7.8 %; Neutrophils # 13.4 K/mcL (1.6-8.9); Platelet Count 296 K/mcL (140-400); Red Blood Count 4.66 M/mcL (4.19-5.50); Red Cell Distribution Width 11.9 % (11.5-14.5); Segmented Neutrophils % 74.5 %; White Blood Count 18.1 K/mcL (4.3-11.1)
[2020-07-14 05:45] LABS: Alanine Aminotransferase 61 Units/L (7-52); Albumin 3.5 g/dL (3.5-5.7); Albumin/Globulin Ratio 0.8 (1.1-2.2); Alkaline Phosphatase 126 Units/L (34-104); Aspartate Amino Transferase 30 Units/L (13-39); BUN/Creatinine Ratio 53 (6-26); Bilirubin,Total 0.4 mg/dL (0.3-1.0); Blood Urea Nitrogen 40 mg/dL (6-20); C-Reactive Protein 43 mg/L (Less than 10); Calcium 9.4 mg/dL (8.6-10.3); Carbon Dioxide 22 mEq/L (23-29); Chloride 93 mEq/L (98-107); Globulin 4.6 g/dL (2.4-3.5); Glucose 125 mg/dL (70-105); Lactate Dehydrogenase 197 Units/L (140-271); Osmolality,Calculated 281 (280-300); Potassium 4.3 mEq/L (3.5-5.1); Sodium 130 mEq/L (136-145); Total Protein 8.1 g/dL (6.4-8.9); eGFR For African Americans > 60 (> 60); eGFR For Non-African Americans > 60 (> 60)
[2020-07-14 06:01] LABS: Ferritin 246 ng/mL (20-250)
[2020-07-14] MEDS: Insulin LISPRO 300 UNITS/3 ML VIAL SQ SCH ×4 (08:26→20:45)
[2020-07-14] MEDS: haloperidoL 5 MG TABLET PO SCH ×2 (08:31→20:45)
[2020-07-14] MEDS: Dexamethasone 4 MG/ML VIAL IVP SCH (08:36)
[2020-07-14] MEDS: CarBAMazepine XR (12 hr) 100 MG TAB PO SCH ×2 (08:36→20:45)
[2020-07-14] MEDS: Furosemide 40 MG/4 ML VIAL IVP SCH (08:37)
[2020-07-14 20:38] LABS: ABG Base Excess 2 mEq/L (-2 to 3); ABG HCO3 26 mEq/L (21-27); ABG Oxygen Saturation 93 % (95-98); ABG PCO2 39 mmHg (35-45); ABG PH 7.44 pH Units (7.32-7.45); ABG PO2 63 mmHg (85-104); ABG TCO2 27 mEq/L (20-26)
[2020-07-14] MEDS: QUEtiapine Fumarate 300 MG TABLET PO SCH (20:46)
[2020-07-15] MEDS: Ipratropium 1 PUFF INHALER IH SCH ×7 (00:24→23:13)
[2020-07-15] MEDS: *HR* Enoxaparin 40 MG/0.4 ML SYRINGE SQ SCH (05:43)
[2020-07-15] MEDS: CarBAMazepine XR (12 hr) 100 MG TAB PO SCH ×2 (09:34→19:27)
[2020-07-15] MEDS: haloperidoL 5 MG TABLET PO SCH ×2 (09:34→19:28)
[2020-07-15] MEDS: Insulin LISPRO 300 UNITS/3 ML VIAL SQ SCH ×4 (09:36→19:28)
[2020-07-15] MEDS: Dexamethasone 4 MG/ML VIAL IVP SCH (09:36)
[2020-07-15] MEDS: Furosemide 40 MG/4 ML VIAL IVP SCH (09:36)
[2020-07-15] MEDS: Acetaminophen 325 MG TABLET PO PRN (11:56)
[2020-07-15] MEDS: QUEtiapine Fumarate 300 MG TABLET PO SCH (19:27)
[2020-07-16] MEDS: Ipratropium 1 PUFF INHALER IH SCH ×5 (03:27→19:37)
[2020-07-16 04:58] LABS: Hematocrit 39.9 % (37.5-50.1); Hemoglobin 13.4 g/dL (12.9-16.9); Mean Corpuscular HGB Conc 33.6 g/dL (31.6-35.5); Mean Corpuscular Hemoglobin 28.9 pg (28.0-33.3); Mean Corpuscular Volume 86.2 fL (83.0-100.0); Mean Platelet Volume 10.8 fL (9.4-12.4); Platelet Count 286 K/mcL (140-400); Red Blood Count 4.63 M/mcL (4.19-5.50); Red Cell Distribution Width 11.9 % (11.5-14.5); White Blood Count 16.8 K/mcL (4.3-11.1)
[2020-07-16 05:10] LABS: BUN/Creatinine Ratio 52 (6-26); Blood Urea Nitrogen 37 mg/dL (6-20); Calcium 9.6 mg/dL (8.6-10.3); Carbon Dioxide 25 mEq/L (23-29); Chloride 94 mEq/L (98-107); Glucose 117 mg/dL (70-105); Osmolality,Calculated 278 (280-300); Potassium 4.9 mEq/L (3.5-5.1); Sodium 129 mEq/L (136-145); eGFR For African Americans > 60 (> 60); eGFR For Non-African Americans > 60 (> 60)
[2020-07-16] MEDS: *HR* Enoxaparin 40 MG/0.4 ML SYRINGE SQ SCH (05:45)
[2020-07-16] MEDS: Dexamethasone 4 MG/ML VIAL IVP SCH (08:15)
[2020-07-16] MEDS: CarBAMazepine XR (12 hr) 100 MG TAB PO SCH ×2 (08:15→22:02)
[2020-07-16] MEDS: Furosemide 40 MG/4 ML VIAL IVP SCH (08:16)
[2020-07-16] MEDS: Insulin LISPRO 300 UNITS/3 ML VIAL SQ SCH ×4 (08:16→22:03)
[2020-07-16] MEDS: haloperidoL 5 MG TABLET PO SCH ×2 (08:19→21:59)
[2020-07-16] MEDS: QUEtiapine Fumarate 300 MG TABLET PO SCH (22:01)
[2020-07-17] MEDS: Ipratropium 1 PUFF INHALER IH SCH ×7 (00:12→23:12)
[2020-07-17] MEDS ORDERED: *HR* Metoprolol 5 MG/5 ML VIAL IVP ONE (00:59)
[2020-07-17] MEDS: *HR* Enoxaparin 40 MG/0.4 ML SYRINGE SQ SCH (06:45)
[2020-07-17] MEDS: CarBAMazepine XR (12 hr) 100 MG TAB PO SCH ×2 (09:07→21:43)
[2020-07-17] MEDS: Insulin LISPRO 300 UNITS/3 ML VIAL SQ SCH ×4 (09:07→21:46)
[2020-07-17] MEDS: haloperidoL 5 MG TABLET PO SCH ×2 (09:08→21:45)
[2020-07-17] MEDS: Furosemide 20 MG TABLET PO SCH (09:08)
[2020-07-17] MEDS: QUEtiapine Fumarate 300 MG TABLET PO SCH (21:44)
[2020-07-18] MEDS: Ipratropium 1 PUFF INHALER IH SCH ×6 (04:24→23:17)
[2020-07-18] MEDS: *HR* Enoxaparin 40 MG/0.4 ML SYRINGE SQ SCH (05:47)
[2020-07-18] MEDS: Furosemide 20 MG TABLET PO SCH (07:34)
[2020-07-18] MEDS: haloperidoL 5 MG TABLET PO SCH ×2 (07:35→20:17)
[2020-07-18] MEDS: CarBAMazepine XR (12 hr) 100 MG TAB PO SCH ×2 (07:35→20:08)
[2020-07-18] MEDS: Insulin LISPRO 300 UNITS/3 ML VIAL SQ SCH ×4 (07:36→20:31)
[2020-07-18] MEDS: QUEtiapine Fumarate 300 MG TABLET PO SCH (20:11)
[2020-07-19] MEDS: Ipratropium 1 PUFF INHALER IH SCH ×5 (03:04→19:48)
[2020-07-19] MEDS: *HR* Enoxaparin 40 MG/0.4 ML SYRINGE SQ SCH (06:09)
[2020-07-19 06:44] LABS: Hematocrit 36.4 % (37.5-50.1); Hemoglobin 12.2 g/dL (12.9-16.9); Mean Corpuscular HGB Conc 33.5 g/dL (31.6-35.5); Mean Corpuscular Hemoglobin 28.4 pg (28.0-33.3); Mean Corpuscular Volume 84.8 fL (83.0-100.0); Mean Platelet Volume 10.9 fL (9.4-12.4); Platelet Count 277 K/mcL (140-400); Red Blood Count 4.29 M/mcL (4.19-5.50); Red Cell Distribution Width 12.2 % (11.5-14.5); White Blood Count 11.7 K/mcL (4.3-11.1)
[2020-07-19 07:32] LABS: BUN/Creatinine Ratio 37 (6-26); Blood Urea Nitrogen 28 mg/dL (6-20); Calcium 9.4 mg/dL (8.6-10.3); Carbon Dioxide 27 mEq/L (23-29); Chloride 92 mEq/L (98-107); Glucose 150 mg/dL (70-105); Magnesium 1.9 mg/dL (1.6-2.6); Osmolality,Calculated 278 (280-300); Potassium 4.5 mEq/L (3.5-5.1); Sodium 130 mEq/L (136-145); eGFR For African Americans > 60 (> 60); eGFR For Non-African Americans > 60 (> 60)
[2020-07-19 07:40] LABS: Ferritin 136 ng/mL (20-250)
[2020-07-19] MEDS: haloperidoL 5 MG TABLET PO SCH ×2 (07:49→21:14)
[2020-07-19] MEDS: CarBAMazepine XR (12 hr) 100 MG TAB PO SCH ×2 (07:49→21:15)
[2020-07-19] MEDS: Furosemide 20 MG TABLET PO SCH (07:50)
[2020-07-19] MEDS: Insulin LISPRO 300 UNITS/3 ML VIAL SQ SCH ×4 (07:50→21:15)
[2020-07-19 09:01] LABS: C-Reactive Protein 75 mg/L (Less than 10)
[2020-07-19] MEDS: QUEtiapine Fumarate 300 MG TABLET PO SCH (21:13)
[2020-07-20] MEDS: Ipratropium 1 PUFF INHALER IH SCH ×5 (00:07→16:18)
[2020-07-20] MEDS: *HR* Enoxaparin 40 MG/0.4 ML SYRINGE SQ SCH (05:11)
[2020-07-20] MEDS: CarBAMazepine XR (12 hr) 100 MG TAB PO SCH (09:27)
[2020-07-20] MEDS: haloperidoL 5 MG TABLET PO SCH (09:28)
[2020-07-20] MEDS: Furosemide 20 MG TABLET PO SCH (09:29)
[2020-07-20] MEDS: Insulin LISPRO 300 UNITS/3 ML VIAL SQ SCH ×2 (09:29→12:23)
[2020-07-20 10:25] VITALS: BP 102/64
== END 2020-07-20 16:42 | disposition home or self-care (01) | DRG 137 ==
LOC: CDU 12:24 → EMEROOARM 12:24 → OBSVTOIN 19:51 → INTOOBSV 19:51 → SUATTDRO 19:51 → CDU 20:13 → 2NENU 07-03 07:20 → SUATTDRO 07-03 09:01 → 3BNU 07-19 18:02
PROVIDERS: ADMIT Family Medicine; ATTEND Internal Medicine